=== PATIENT | male | born 1960 | race Caucasian/White ===

== ENCOUNTER 2020-06-14 00:46 | Inpatient (IN) ==
[2020-06-14] MEDS ORDERED: PIPERACILLIN/TAZOBACTAM 3,375 MG in SODIUM CHLORIDE 0.9% 100 ML IV STA (01:48)
[2020-06-14] MEDS ORDERED: SODIUM CHLORIDE 0.9% 500 ML IV STA (01:48)
[2020-06-14] MEDS ORDERED: ONDANSETRON 4 MG/2 ML VIAL IV STA (01:48)
[2020-06-14] MEDS ORDERED: methylPREDNISolone SOD SUC 125 MG/2 ML VIAL IV STA (01:48)
[2020-06-14] MEDS ORDERED: ALBUTEROL/IPRATROPIUM 3 ML NEB RESP TX STA (01:48)
[2020-06-14 01:57] LABS: Hematocrit 30.7 VOL% (42.0-52.0); Hemoglobin 10.8 GM/DL (14.0-18.0); Immature Granulocytes % 4.4 %; Immature Granulocytes Absolute 1.49 #; Lymphocytes # 1.1 10*3/uL (1.4-4.0); Lymphocytes % 3.4 % (21.2-54.2); Mean Corpuscular HGB Conc 35.2 GM/DL (32-36); Mean Platelet Volume 10.3 FL (9.6-12.0); Monocytes % 2.7 % (1.7-12.7); Neutrophils % 89.5 % (38.7-73.9); Platelet Count 268 T/CUMM (130-400); Red Blood Count 3.41 MC/CUMM (3.8-5.5); White Blood Count 33.7 T/CUMM (4-12)
[2020-06-14 02:11] LABS: Albumin 1.1 G/DL (3.4-5.0); Bilirubin,Total 1.1 MG/DL (0.2-1.0); Calcium 7.3 MG/DL (8.5-10.1); Osmolality,Calculated 250.9 MOS/KG (273-304); Total Protein 5.6 G/DL (6.4-8.3)
[2020-06-14 02:21] LABS: ABG Base Excess 6.5 MMOL/L (-2.5-2.5); ABG HCO3 30.3 MMOL/L (20-26); ABG Oxygen Saturation 96.2 % (95-100); ABG PCO2 37.1 MM HG (35-48); ABG PH 7.513 (7.35-7.45); ABG PO2 83.9 MM HG (80-95); Allen Test Positive
[2020-06-14 02:22] LABS: Band Neutrophils 12 % (0-10); Lymphocytes 8 % (20-55); Metamyelocytes 1 %; Platelet Estimate Normal; Segmented Neutrophils 77 % (50-85); Total Cells Counted 100
[2020-06-14 02:23] LABS: Hypochromasia Slight
[2020-06-14 02:36] LABS: INR 1.1
[2020-06-14] MEDS ORDERED: MAGNESIUM SULF RIDER 2 GM in PREMIX 1 EACH IV STA (02:37)
[2020-06-14] MEDS ORDERED: POTASSIUM CHLORIDE 20 MEQ TABLET PO STA (02:47)
[2020-06-14 02:52] LABS: Ferritin 1110.9 ng/ml (26-388)
[2020-06-14] MEDS ORDERED: ONDANSETRON 4 MG/2 ML VIAL IV PRN (02:59)
[2020-06-14] MEDS: LACTATED RINGERS 1,000 ML IV SCH ×2 (04:21→16:52)
[2020-06-14] MEDS ORDERED: INFLUENZA VIRUS VACCINE 0.5 ML SYRINGE IM ONE (05:11)
[2020-06-14] MEDS: VANCOMYCIN INJ 1,000 MG in SODIUM CHLORIDE 0.9% 250 ML IV SCH ×2 (05:16→16:52)
[2020-06-14 06:59] LABS: Bilirubin,Urine Negative (Negative); Blood, Urine Negative (Negative); Glucose,Urine (UA) Negative (Negative); Ketones,Urine Negative (Negative); Nitrite,Urine Negative (Negative); Protein,Urine Negative; RBC,Urine <1 /HPF (0-4); Urine Appearance CLEAR (Clear); Urine Color Yellow (Yellow); Urine Specific Gravity 1.039 (1.001-1.035)
[2020-06-14] MEDS: ALBUTEROL/IPRATROPIUM 3 ML NEB RESP TX SCH ×3 (07:03→18:54)
[2020-06-14 07:06] LABS: Barbiturates Screen,Urine Negative (Negative); Benzodiazepines Screen,Urine Negative (Negative); Cannabinoid Screen,Urine Negative (Negative); Opiate Screen,Urine Negative (Negative); Phencyclidine Screen,Urine Negative (Negative)
[2020-06-14] MEDS: PIPERACILLIN/TAZOBACTAM 3,375 MG in SODIUM CHLORIDE 0.9% 100 ML IV SCH ×2 (08:35→16:56)
[2020-06-14] MEDS: MULTIVITAMIN (BEROCCA) TABLET PO SCH (08:37)
[2020-06-14] MEDS: PANTOPRAZOLE 40 MG TABLET PO SCH (08:37)
[2020-06-14] MEDS: FOLIC ACID 1 MG TABLET PO SCH (08:37)
[2020-06-14] MEDS: THIAMINE 100 MG TABLET PO SCH (08:37)
[2020-06-14] MEDS: NICOTINE 21 MG/24 HR PATCH TRANSDERM PRN (08:41)
[2020-06-14] MEDS ORDERED: HEPARIN/NACL 0.9% 2 UNITS/ML 500 ML IV ONE (11:25)
[2020-06-14] MEDS ORDERED: SUGAMMADEX 200 MG/2 ML VIAL IV ONE (12:40)
[2020-06-14] MEDS ORDERED: propofoL 200 MG/20 ML VIAL IV ONE (13:27)
[2020-06-14] MEDS ORDERED: ROCURONIUM 100 MG/10 ML VIAL IV ONE (13:27)
[2020-06-14] MEDS ORDERED: fentaNYL 100 MCG/2 ML VIAL ONE (13:27)
[2020-06-14] MEDS ORDERED: LIDOCAINE 2% 5 ML VIAL ONE (13:27)
[2020-06-14] MEDS ORDERED: MIDAZOLAM 2 MG/2 ML VIAL ONE (13:27)
[2020-06-14] MEDS ORDERED: DESFLURANE 1 UNIT/15 MINUTE INH ONE (13:27)
[2020-06-14] MEDS ORDERED: SUCCINYLCHOLINE 200 MG/10 ML VIAL ONE (13:27)
[2020-06-14] MEDS: HYDROmorphone 2 MG/1 ML VIAL IV PRN (14:56)
[2020-06-15] MEDS: HYDROmorphone 2 MG/1 ML VIAL IV PRN ×4 (00:32→18:22)
[2020-06-15] MEDS: guaiFENesin/DM ER 600-30 MG TABLET PO PRN (00:33)
[2020-06-15] MEDS: PIPERACILLIN/TAZOBACTAM 3,375 MG in SODIUM CHLORIDE 0.9% 100 ML IV SCH ×3 (00:40→17:48)
[2020-06-15] MEDS: ALBUTEROL/IPRATROPIUM 3 ML NEB RESP TX SCH ×4 (01:42→19:32)
[2020-06-15] MEDS: LACTATED RINGERS 1,000 ML IV SCH ×2 (03:07→13:38)
[2020-06-15 04:28] LABS: Hematocrit 27.4 VOL% (42.0-52.0); Hemoglobin 9.2 GM/DL (14.0-18.0); Immature Granulocytes % 6.2 %; Immature Granulocytes Absolute 1.55 #; Lymphocytes % 4.1 % (21.2-54.2); Mean Corpuscular HGB Conc 33.6 GM/DL (32-36); Mean Corpuscular Volume 94.2 FL (87-102); Mean Platelet Volume 10.4 FL (9.6-12.0); Monocytes % 4.2 % (1.7-12.7); Neutrophils % 85.5 % (38.7-73.9); Red Blood Count 2.91 MC/CUMM (3.8-5.5); Red Cell Distribution Width 14.3 % (9.3-17.3); White Blood Count 24.9 T/CUMM (4-12)
[2020-06-15 04:38] LABS: Platelet Count 162 T/CUMM (130-400)
[2020-06-15 04:38] LABS: Calcium 7.8 MG/DL (8.5-10.1); Osmolality,Calculated 259.9 MOS/KG (273-304)
[2020-06-15 05:00] LABS: Band Neutrophils 7 % (0-10); Hypochromasia Slight; Lymphocytes 2 % (20-55); Metamyelocytes 1 %; Myelocytes 1 %; Segmented Neutrophils 84 % (50-85); Target Cells Slight; Total Cells Counted 100
[2020-06-15 05:01] LABS: Microcytosis Slight; Platelet Estimate Adequate
[2020-06-15] MEDS: VANCOMYCIN INJ 1,000 MG in SODIUM CHLORIDE 0.9% 250 ML IV SCH ×2 (06:06→17:50)
[2020-06-15] MEDS: PANTOPRAZOLE 40 MG TABLET PO SCH (09:03)
[2020-06-15] MEDS: ENOXAPARIN 40 MG/0.4 ML SYRINGE SUBCUT SCH (09:03)
[2020-06-15] MEDS: FOLIC ACID 1 MG TABLET PO SCH (09:03)
[2020-06-15] MEDS: THIAMINE 100 MG TABLET PO SCH (09:03)
[2020-06-15] MEDS: MULTIVITAMIN (BEROCCA) TABLET PO SCH (09:03)
[2020-06-15] MEDS: NICOTINE 21 MG/24 HR PATCH TRANSDERM PRN (09:04)
[2020-06-16] MEDS: LACTATED RINGERS 1,000 ML IV SCH ×3 (00:23→19:40)
[2020-06-16] MEDS: ALBUTEROL/IPRATROPIUM 3 ML NEB RESP TX SCH ×4 (01:52→19:43)
[2020-06-16] MEDS: PIPERACILLIN/TAZOBACTAM 3,375 MG in SODIUM CHLORIDE 0.9% 100 ML IV SCH ×3 (02:02→18:41)
[2020-06-16] MEDS: HYDROmorphone 2 MG/1 ML VIAL IV PRN ×2 (02:03→06:08)
[2020-06-16 03:42] LABS: Basophils % 0.1 % (0.0-0.8); Eosinophils # 0.1 10*3/uL (0.0-0.87); Eosinophils % 0.3 % (0.00-10.9); Hematocrit 28.4 VOL% (42.0-52.0); Hemoglobin 9.4 GM/DL (14.0-18.0); Immature Granulocytes % 8.8 %; Immature Granulocytes Absolute 1.74 #; Lymphocytes # 1.3 10*3/uL (1.4-4.0); Lymphocytes % 6.6 % (21.2-54.2); Mean Corpuscular HGB Conc 33.1 GM/DL (32-36); Mean Corpuscular Volume 95.6 FL (87-102); Mean Platelet Volume 10.8 FL (9.6-12.0); Monocytes % 5.5 % (1.7-12.7); Neutrophils % 78.7 % (38.7-73.9); Platelet Count 151 T/CUMM (130-400); Red Blood Count 2.97 MC/CUMM (3.8-5.5); Red Cell Distribution Width 14.7 % (9.3-17.3); White Blood Count 19.7 T/CUMM (4-12)
[2020-06-16 04:12] LABS: Band Neutrophils 3 % (0-10); Hypochromasia Slight; Lymphocytes 10 % (20-55); Metamyelocytes 4 %; Myelocytes 2 %; Platelet Estimate Normal; Segmented Neutrophils 74 % (50-85); Target Cells Few
[2020-06-16 04:13] LABS: Total Cells Counted 100
[2020-06-16 04:43] LABS: Calcium 7.2 MG/DL (8.5-10.1); Osmolality,Calculated 246.6 MOS/KG (273-304)
[2020-06-16] MEDS: VANCOMYCIN INJ 1,000 MG in SODIUM CHLORIDE 0.9% 250 ML IV SCH ×2 (06:06→18:38)
[2020-06-16] MEDS: chlordiazePOXIDE 10 MG CAPSULE PO PRN ×3 (07:17→22:36)
[2020-06-16] MEDS: ENOXAPARIN 40 MG/0.4 ML SYRINGE SUBCUT SCH (08:22)
[2020-06-16] MEDS: LORazepam 2 MG/1 ML VIAL IV PRN ×3 (08:23→22:36)
[2020-06-16] MEDS: MULTIVITAMIN (BEROCCA) TABLET PO SCH (08:23)
[2020-06-16] MEDS: FOLIC ACID 1 MG TABLET PO SCH (08:23)
[2020-06-16] MEDS: PANTOPRAZOLE 40 MG TABLET PO SCH (08:23)
[2020-06-16] MEDS: NICOTINE 21 MG/24 HR PATCH TRANSDERM PRN (08:23)
[2020-06-16] MEDS: THIAMINE 100 MG TABLET PO SCH (08:23)
[2020-06-16] MEDS: methylPREDNISolone SOD SUC 40 MG/1 ML VIAL IV SCH ×2 (12:52→18:38)
[2020-06-16 18:24] LABS: Bacteria,Urine Occasional /HPF (Few); Bilirubin,Urine Negative (Negative); Blood, Urine Negative (Negative); Glucose,Urine (UA) Negative (Negative); Ketones,Urine Negative (Negative); Nitrite,Urine Negative (Negative); Protein,Urine Negative; RBC,Urine 1 /HPF (0-4); Urine Appearance CLEAR (Clear); Urine Color Yellow (Yellow); Urine Specific Gravity 1.012 (1.001-1.035); Urine Urobilinogen < 2.0 EU/DL (0.2-1.0); WBC,Urine 2 /HPF (0-6)
[2020-06-16] MEDS ORDERED: LORazepam 2 MG/1 ML VIAL ONE (21:30)
[2020-06-16] MEDS: guaiFENesin/DM ER 600-30 MG TABLET PO PRN (22:36)
[2020-06-17] MEDS: ALBUTEROL/IPRATROPIUM 3 ML NEB RESP TX SCH ×4 (01:00→20:06)
[2020-06-17] MEDS: HYDROmorphone 2 MG/1 ML VIAL IV PRN ×2 (01:54→08:06)
[2020-06-17] MEDS: PIPERACILLIN/TAZOBACTAM 3,375 MG in SODIUM CHLORIDE 0.9% 100 ML IV SCH ×3 (02:00→18:04)
[2020-06-17] MEDS: methylPREDNISolone SOD SUC 40 MG/1 ML VIAL IV SCH ×3 (04:07→18:29)
[2020-06-17 04:16] LABS: Basophils % 0.1 % (0.0-0.8); Hematocrit 32.1 VOL% (42.0-52.0); Hemoglobin 10.4 GM/DL (14.0-18.0); Immature Granulocytes % 16.3 %; Immature Granulocytes Absolute 3.05 #; Lymphocytes % 5.6 % (21.2-54.2); Mean Corpuscular HGB Conc 32.4 GM/DL (32-36); Mean Platelet Volume 10.9 FL (9.6-12.0); Monocytes % 2.2 % (1.7-12.7); Neutrophils % 75.8 % (38.7-73.9); Platelet Count 146 T/CUMM (130-400); Red Blood Count 3.31 MC/CUMM (3.8-5.5); Red Cell Distribution Width 14.6 % (9.3-17.3); White Blood Count 18.7 T/CUMM (4-12)
[2020-06-17 04:28] LABS: Calcium 7.4 MG/DL (8.5-10.1); Osmolality,Calculated 264.5 MOS/KG (273-304)
[2020-06-17 04:38] LABS: Band Neutrophils 5 % (0-10); Hypochromasia 1+; Lymphocytes 10 % (20-55); Segmented Neutrophils 82 % (50-85); Total Cells Counted 100
[2020-06-17 04:39] LABS: Microcytosis Slight
[2020-06-17] MEDS: VANCOMYCIN INJ 1,000 MG in SODIUM CHLORIDE 0.9% 250 ML IV SCH ×2 (05:00→18:03)
[2020-06-17] MEDS: PANTOPRAZOLE 40 MG TABLET PO SCH (08:03)
[2020-06-17] MEDS: THIAMINE 100 MG TABLET PO SCH (08:03)
[2020-06-17] MEDS: chlordiazePOXIDE 10 MG CAPSULE PO PRN (08:04)
[2020-06-17] MEDS: FOLIC ACID 1 MG TABLET PO SCH (08:04)
[2020-06-17] MEDS: MULTIVITAMIN (BEROCCA) TABLET PO SCH (08:04)
[2020-06-17] MEDS: NICOTINE 21 MG/24 HR PATCH TRANSDERM PRN (08:05)
[2020-06-17] MEDS: ENOXAPARIN 40 MG/0.4 ML SYRINGE SUBCUT SCH (08:05)
[2020-06-17] MEDS: LACTATED RINGERS 1,000 ML IV SCH ×3 (08:39→18:23)
[2020-06-17] MEDS ORDERED: LIDOCAINE 1% 20 ML VIAL MISC INJ ONE (13:30)
[2020-06-17] MEDS ORDERED: LIDOCAINE 2% VISCOUS 100 ML BOTTLE SWISH/SPIT ONE (13:30)
[2020-06-17] MEDS ORDERED: MIDAZOLAM 2 MG/2 ML VIAL IV ONE (13:30)
[2020-06-17] MEDS ORDERED: LIDOCAINE 2% 20 ML VIAL RESP TX ONE (13:30)
[2020-06-17] MEDS: KETOROLAC 30 MG/1 ML VIAL IV PRN (14:19)
[2020-06-17] MEDS ORDERED: chlordiazePOXIDE 10 MG CAPSULE PO PRN (14:30)
[2020-06-18] MEDS: ALBUTEROL/IPRATROPIUM 3 ML NEB RESP TX SCH ×4 (00:21→20:04)
[2020-06-18] MEDS: LACTATED RINGERS 1,000 ML IV SCH ×2 (01:12→02:16)
[2020-06-18] MEDS: methylPREDNISolone SOD SUC 40 MG/1 ML VIAL IV SCH ×3 (02:12→18:21)
[2020-06-18] MEDS: PIPERACILLIN/TAZOBACTAM 3,375 MG in SODIUM CHLORIDE 0.9% 100 ML IV SCH ×3 (02:15→19:42)
[2020-06-18] MEDS: KETOROLAC 30 MG/1 ML VIAL IV PRN ×4 (03:09→23:59)
[2020-06-18 03:37] LABS: Basophils % 0.1 % (0.0-0.8); Hematocrit 30.9 VOL% (42.0-52.0); Hemoglobin 10.2 GM/DL (14.0-18.0); Immature Granulocytes % 12.3 %; Immature Granulocytes Absolute 1.92 #; Lymphocytes # 0.8 10*3/uL (1.4-4.0); Lymphocytes % 5.1 % (21.2-54.2); Mean Corpuscular Volume 95.1 FL (87-102); Mean Platelet Volume 10.6 FL (9.6-12.0); Monocytes % 4.1 % (1.7-12.7); Neutrophils % 78.4 % (38.7-73.9); Platelet Count 150 T/CUMM (130-400); Red Blood Count 3.25 MC/CUMM (3.8-5.5); White Blood Count 15.7 T/CUMM (4-12)
[2020-06-18 04:04] LABS: Bilirubin,Total 0.5 MG/DL (0.2-1.0); Calcium 7.4 MG/DL (8.5-10.1); Osmolality,Calculated 271.2 MOS/KG (273-304)
[2020-06-18 04:07] LABS: Band Neutrophils 3 % (0-10); Hypochromasia 1+; Lymphocytes 3 % (20-55); Segmented Neutrophils 91 % (50-85); Total Cells Counted 100
[2020-06-18 04:08] LABS: Anisocytosis 1+; Platelet Estimate Adequate
[2020-06-18] MEDS: VANCOMYCIN INJ 1,000 MG in SODIUM CHLORIDE 0.9% 250 ML IV SCH ×2 (05:21→18:18)
[2020-06-18] MEDS: MULTIVITAMIN (BEROCCA) TABLET PO SCH (08:38)
[2020-06-18] MEDS: PANTOPRAZOLE 40 MG TABLET PO SCH (08:39)
[2020-06-18] MEDS: FOLIC ACID 1 MG TABLET PO SCH (08:39)
[2020-06-18] MEDS: ENOXAPARIN 40 MG/0.4 ML SYRINGE SUBCUT SCH (08:39)
[2020-06-18] MEDS: THIAMINE 100 MG TABLET PO SCH (08:39)
[2020-06-18] MEDS: NICOTINE 21 MG/24 HR PATCH TRANSDERM PRN (08:41)
[2020-06-18] MEDS: MAGNESIUM SULF RIDER 2 GM in PREMIX 1 EACH IV PRN (08:42)
[2020-06-19] MEDS: ALBUTEROL/IPRATROPIUM 3 ML NEB RESP TX SCH ×4 (00:57→19:51)
[2020-06-19] MEDS: methylPREDNISolone SOD SUC 40 MG/1 ML VIAL IV SCH ×3 (03:52→21:31)
[2020-06-19] MEDS: PIPERACILLIN/TAZOBACTAM 3,375 MG in SODIUM CHLORIDE 0.9% 100 ML IV SCH ×3 (03:54→21:32)
[2020-06-19] MEDS: VANCOMYCIN INJ 1,000 MG in SODIUM CHLORIDE 0.9% 250 ML IV SCH ×2 (08:15→21:58)
[2020-06-19] MEDS: ENOXAPARIN 40 MG/0.4 ML SYRINGE SUBCUT SCH (09:09)
[2020-06-19] MEDS: MULTIVITAMIN (BEROCCA) TABLET PO SCH (09:09)
[2020-06-19] MEDS: PANTOPRAZOLE 40 MG TABLET PO SCH (09:09)
[2020-06-19] MEDS: FOLIC ACID 1 MG TABLET PO SCH (09:09)
[2020-06-19] MEDS: THIAMINE 100 MG TABLET PO SCH (09:09)
[2020-06-19] MEDS ORDERED: LACTULOSE 20 GM/30 ML UDCUP PO PRN (11:43)
[2020-06-19] MEDS ORDERED: FUROSEMIDE 40 MG/4 ML VIAL IV ONE (15:11)
[2020-06-19] MEDS: FLUCONAZOLE INJ 100 MG in IV BAG 1 EACH IV SCH (18:13)
[2020-06-19] MEDS: DOCUSATE SODIUM 100 MG CAPSULE PO SCH (21:30)
[2020-06-19] MEDS: KETOROLAC 30 MG/1 ML VIAL IV PRN (21:30)
[2020-06-20] MEDS: LACTULOSE 20 GM/30 ML UDCUP PO SCH ×4 (00:23→17:06)
[2020-06-20] MEDS: ALBUTEROL/IPRATROPIUM 3 ML NEB RESP TX SCH ×4 (00:50→19:43)
[2020-06-20] MEDS: methylPREDNISolone SOD SUC 40 MG/1 ML VIAL IV SCH ×3 (03:51→18:00)
[2020-06-20] MEDS: KETOROLAC 30 MG/1 ML VIAL IV PRN ×2 (03:51→21:58)
[2020-06-20] MEDS: PIPERACILLIN/TAZOBACTAM 3,375 MG in SODIUM CHLORIDE 0.9% 100 ML IV SCH ×3 (03:51→22:02)
[2020-06-20 05:33] LABS: Basophils # 0.1 10*3/uL (0.0-0.2); Basophils % 0.6 % (0.0-0.8); Hematocrit 27.4 VOL% (42.0-52.0); Hemoglobin 9.1 GM/DL (14.0-18.0); Immature Granulocytes % 10.9 %; Immature Granulocytes Absolute 1.18 #; Lymphocytes # 0.6 10*3/uL (1.4-4.0); Lymphocytes % 5.4 % (21.2-54.2); Mean Corpuscular HGB Conc 33.2 GM/DL (32-36); Mean Corpuscular Volume 94.2 FL (87-102); Mean Platelet Volume 10.1 FL (9.6-12.0); Monocytes % 4.9 % (1.7-12.7); Neutrophils % 78.2 % (38.7-73.9); Platelet Count 150 T/CUMM (130-400); Red Blood Count 2.91 MC/CUMM (3.8-5.5); Red Cell Distribution Width 14.9 % (9.3-17.3); White Blood Count 10.9 T/CUMM (4-12)
[2020-06-20 05:47] LABS: Calcium 7.8 MG/DL (8.5-10.1); Osmolality,Calculated 271.4 MOS/KG (273-304)
[2020-06-20 05:59] LABS: Hypochromasia Slight; Lymphocytes 6 % (20-55); Myelocytes 1 %; Platelet Estimate Normal; Segmented Neutrophils 90 % (50-85); Total Cells Counted 100
[2020-06-20] MEDS: THIAMINE 100 MG TABLET PO SCH (10:15)
[2020-06-20] MEDS: MULTIVITAMIN (BEROCCA) TABLET PO SCH (10:15)
[2020-06-20] MEDS: DOCUSATE SODIUM 100 MG CAPSULE PO SCH ×2 (10:16→20:58)
[2020-06-20] MEDS: PANTOPRAZOLE 40 MG TABLET PO SCH (10:16)
[2020-06-20] MEDS: ENOXAPARIN 40 MG/0.4 ML SYRINGE SUBCUT SCH (10:16)
[2020-06-20] MEDS: FOLIC ACID 1 MG TABLET PO SCH (10:16)
[2020-06-20] MEDS: MAGNESIUM SULF RIDER 2 GM in PREMIX 1 EACH IV PRN (10:30)
[2020-06-20] MEDS: METOCLOPRAMIDE 10 MG/2 ML VIAL IV SCH ×2 (12:37→17:07)
[2020-06-20] MEDS: FLUCONAZOLE INJ 100 MG in IV BAG 1 EACH IV SCH (17:06)
[2020-06-20] MEDS ORDERED: METOCLOPRAMIDE 10 MG/2 ML VIAL IV SCH (18:00)
[2020-06-20] MEDS ORDERED: VANCOMYCIN INJ 1,000 MG in SODIUM CHLORIDE 0.9% 250 ML IV SCH (21:00)
[2020-06-21] MEDS: METOCLOPRAMIDE 10 MG/2 ML VIAL IV SCH ×5 (00:48→17:13)
[2020-06-21] MEDS: LACTULOSE 20 GM/30 ML UDCUP PO SCH ×5 (01:30→23:59)
[2020-06-21] MEDS: ALBUTEROL/IPRATROPIUM 3 ML NEB RESP TX SCH ×4 (01:48→21:04)
[2020-06-21] MEDS: methylPREDNISolone SOD SUC 40 MG/1 ML VIAL IV SCH ×3 (03:52→18:36)
[2020-06-21] MEDS: PIPERACILLIN/TAZOBACTAM 3,375 MG in SODIUM CHLORIDE 0.9% 100 ML IV SCH ×3 (05:32→21:08)
[2020-06-21 06:09] LABS: Basophils # 0.1 10*3/uL (0.0-0.2); Basophils % 0.5 % (0.0-0.8); Hematocrit 26.8 VOL% (42.0-52.0); Hemoglobin 8.8 GM/DL (14.0-18.0); Immature Granulocytes % 11.2 %; Immature Granulocytes Absolute 1.12 #; Lymphocytes # 0.8 10*3/uL (1.4-4.0); Lymphocytes % 7.6 % (21.2-54.2); Mean Corpuscular HGB Conc 32.8 GM/DL (32-36); Mean Corpuscular Volume 95.7 FL (87-102); Mean Platelet Volume 10.5 FL (9.6-12.0); Monocytes % 6.1 % (1.7-12.7); Neutrophils % 74.6 % (38.7-73.9); Platelet Count 160 T/CUMM (130-400); Red Cell Distribution Width 15.2 % (9.3-17.3)
[2020-06-21 06:33] LABS: Band Neutrophils 1 % (0-10); Lymphocytes 6 % (20-55); Segmented Neutrophils 86 % (50-85); Total Cells Counted 100
[2020-06-21 06:34] LABS: Hypochromasia 1+; Microcytosis 1+; Platelet Estimate Adequate
[2020-06-21 06:37] LABS: Calcium 7.6 MG/DL (8.5-10.1); Osmolality,Calculated 277.8 MOS/KG (273-304)
[2020-06-21] MEDS: DOCUSATE SODIUM 100 MG CAPSULE PO SCH ×2 (09:00→21:08)
[2020-06-21] MEDS: MULTIVITAMIN (BEROCCA) TABLET PO SCH (09:00)
[2020-06-21] MEDS: ENOXAPARIN 40 MG/0.4 ML SYRINGE SUBCUT SCH (09:00)
[2020-06-21] MEDS: THIAMINE 100 MG TABLET PO SCH (09:00)
[2020-06-21] MEDS: FOLIC ACID 1 MG TABLET PO SCH (09:00)
[2020-06-21] MEDS: PANTOPRAZOLE 40 MG TABLET PO SCH (09:01)
[2020-06-21] MEDS: FUROSEMIDE 40 MG/4 ML VIAL IV SCH (17:14)
[2020-06-21] MEDS: FLUCONAZOLE INJ 100 MG in IV BAG 1 EACH IV SCH (17:18)
[2020-06-22] MEDS: ALBUTEROL/IPRATROPIUM 3 ML NEB RESP TX SCH ×4 (01:20→19:31)
[2020-06-22] MEDS: methylPREDNISolone SOD SUC 40 MG/1 ML VIAL IV SCH ×3 (03:27→18:09)
[2020-06-22] MEDS: PIPERACILLIN/TAZOBACTAM 3,375 MG in SODIUM CHLORIDE 0.9% 100 ML IV SCH ×3 (03:27→21:58)
[2020-06-22] MEDS: LACTULOSE 20 GM/30 ML UDCUP PO SCH ×3 (05:26→17:23)
[2020-06-22] MEDS: METOCLOPRAMIDE 10 MG/2 ML VIAL IV SCH ×3 (05:29→18:09)
[2020-06-22 06:27] LABS: Calcium 7.7 MG/DL (8.5-10.1); Osmolality,Calculated 276.1 MOS/KG (273-304)
[2020-06-22 06:34] LABS: Basophils # 0.1 10*3/uL (0.0-0.2); Basophils % 0.4 % (0.0-0.8); Hematocrit 28.7 VOL% (42.0-52.0); Hemoglobin 9.1 GM/DL (14.0-18.0); Immature Granulocytes % 6.8 %; Immature Granulocytes Absolute 0.93 #; Lymphocytes # 0.6 10*3/uL (1.4-4.0); Lymphocytes % 4.3 % (21.2-54.2); Mean Corpuscular HGB Conc 31.7 GM/DL (32-36); Mean Platelet Volume 10.1 FL (9.6-12.0); Monocytes % 2.6 % (1.7-12.7); Neutrophils % 85.9 % (38.7-73.9); Platelet Count 160 T/CUMM (130-400); Red Blood Count 2.99 MC/CUMM (3.8-5.5); Red Cell Distribution Width 15.5 % (9.3-17.3); White Blood Count 13.6 T/CUMM (4-12)
[2020-06-22] MEDS: FUROSEMIDE 40 MG/4 ML VIAL IV SCH ×2 (09:30→18:07)
[2020-06-22] MEDS: PANTOPRAZOLE 40 MG TABLET PO SCH (09:55)
[2020-06-22] MEDS: DOCUSATE SODIUM 100 MG CAPSULE PO SCH ×2 (09:55→22:00)
[2020-06-22] MEDS: THIAMINE 100 MG TABLET PO SCH (09:55)
[2020-06-22] MEDS: MULTIVITAMIN (BEROCCA) TABLET PO SCH (09:55)
[2020-06-22] MEDS: ENOXAPARIN 40 MG/0.4 ML SYRINGE SUBCUT SCH (09:56)
[2020-06-22] MEDS: FOLIC ACID 1 MG TABLET PO SCH (09:58)
[2020-06-22 10:49] LABS: Lymphocytes 3 % (20-55); Platelet Estimate Adequate; Polychromasia Slight; Segmented Neutrophils 92 % (50-85); Total Cells Counted 100
[2020-06-22 10:50] LABS: Microcytosis Slight; Tear Drop Cells Few
[2020-06-22] MEDS ORDERED: POTASSIUM CHLORIDE 20 MEQ TABLET PO ONE (12:19)
[2020-06-22] MEDS: FLUCONAZOLE INJ 100 MG in IV BAG 1 EACH IV SCH (17:22)
[2020-06-22] MEDS: ACETAMINOPHEN 325 MG TABLET PO PRN (17:28)
[2020-06-23] MEDS: LACTULOSE 20 GM/30 ML UDCUP PO SCH ×4 (00:46→17:00)
[2020-06-23] MEDS: METOCLOPRAMIDE 10 MG/2 ML VIAL IV SCH ×4 (00:47→17:33)
[2020-06-23] MEDS: ALBUTEROL/IPRATROPIUM 3 ML NEB RESP TX SCH ×4 (01:04→19:17)
[2020-06-23] MEDS: methylPREDNISolone SOD SUC 40 MG/1 ML VIAL IV SCH ×2 (04:54→17:30)
[2020-06-23] MEDS: PIPERACILLIN/TAZOBACTAM 3,375 MG in SODIUM CHLORIDE 0.9% 100 ML IV SCH ×3 (05:00→22:45)
[2020-06-23 06:22] LABS: Basophils % 0.3 % (0.0-0.8); Eosinophils % 0.1 % (0.00-10.9); Hematocrit 25.5 VOL% (42.0-52.0); Hemoglobin 8.4 GM/DL (14.0-18.0); Immature Granulocytes Absolute 0.89 #; Mean Corpuscular HGB Conc 32.9 GM/DL (32-36); Mean Corpuscular Volume 96.2 FL (87-102); Mean Platelet Volume 9.6 FL (9.6-12.0); Monocytes % 3.4 % (1.7-12.7); Neutrophils % 83.2 % (38.7-73.9); Platelet Count 151 T/CUMM (130-400); Red Blood Count 2.65 MC/CUMM (3.8-5.5); Red Cell Distribution Width 15.8 % (9.3-17.3); White Blood Count 14.8 T/CUMM (4-12)
[2020-06-23 06:45] LABS: Calcium 7.5 MG/DL (8.5-10.1); Osmolality,Calculated 270.2 MOS/KG (273-304)
[2020-06-23 07:04] LABS: Calcium 7.6 MG/DL (8.5-10.1); Osmolality,Calculated 267.4 MOS/KG (273-304)
[2020-06-23] MEDS: THIAMINE 100 MG TABLET PO SCH (09:13)
[2020-06-23] MEDS: MULTIVITAMIN (BEROCCA) TABLET PO SCH (09:13)
[2020-06-23] MEDS: PANTOPRAZOLE 40 MG TABLET PO SCH (09:13)
[2020-06-23] MEDS: DOCUSATE SODIUM 100 MG CAPSULE PO SCH ×2 (09:13→20:52)
[2020-06-23] MEDS: ENOXAPARIN 40 MG/0.4 ML SYRINGE SUBCUT SCH (09:13)
[2020-06-23] MEDS: FOLIC ACID 1 MG TABLET PO SCH (09:16)
[2020-06-23] MEDS: FUROSEMIDE 40 MG/4 ML VIAL IV SCH (09:19)
[2020-06-23] MEDS ORDERED: methylPREDNISolone SOD SUC 40 MG/1 ML VIAL IV SCH (10:30)
[2020-06-23 13:04] LABS: Band Neutrophils 2 % (0-10); Hypochromasia 1+; Lymphocytes 6 % (20-55); Polychromasia Slight; Segmented Neutrophils 90 % (50-85); Total Cells Counted 100
[2020-06-23 13:05] LABS: Microcytosis 1+; Platelet Estimate Adequate
[2020-06-23] MEDS: HYDROmorphone 2 MG/1 ML VIAL IV PRN (15:39)
[2020-06-23] MEDS: FLUCONAZOLE INJ 100 MG in IV BAG 1 EACH IV SCH (16:28)
[2020-06-23] MEDS ORDERED: MAGNESIUM SULF RIDER 2 GM in PREMIX 1 EACH IV ONE ×2 (17:09→20:00)
[2020-06-24] MEDS: ALBUTEROL/IPRATROPIUM 3 ML NEB RESP TX SCH ×4 (00:17→20:08)
[2020-06-24] MEDS: METOCLOPRAMIDE 10 MG/2 ML VIAL IV SCH ×5 (00:48→23:44)
[2020-06-24] MEDS: LACTULOSE 20 GM/30 ML UDCUP PO SCH ×5 (01:01→23:44)
[2020-06-24] MEDS: methylPREDNISolone SOD SUC 40 MG/1 ML VIAL IV SCH ×2 (05:40→17:17)
[2020-06-24] MEDS: PIPERACILLIN/TAZOBACTAM 3,375 MG in SODIUM CHLORIDE 0.9% 100 ML IV SCH ×3 (05:44→19:45)
[2020-06-24 06:16] LABS: Basophils % 0.2 % (0.0-0.8); Eosinophils # 0.1 10*3/uL (0.0-0.87); Eosinophils % 0.5 % (0.00-10.9); Hematocrit 25.8 VOL% (42.0-52.0); Hemoglobin 8.3 GM/DL (14.0-18.0); Immature Granulocytes % 4.8 %; Immature Granulocytes Absolute 0.61 #; Lymphocytes # 1.2 10*3/uL (1.4-4.0); Lymphocytes % 9.6 % (21.2-54.2); Mean Corpuscular HGB Conc 32.2 GM/DL (32-36); Mean Corpuscular Volume 98.9 FL (87-102); Mean Platelet Volume 9.9 FL (9.6-12.0); Monocytes % 3.3 % (1.7-12.7); Neutrophils % 81.6 % (38.7-73.9); Platelet Count 155 T/CUMM (130-400); Red Blood Count 2.61 MC/CUMM (3.8-5.5); Red Cell Distribution Width 16.1 % (9.3-17.3); White Blood Count 12.8 T/CUMM (4-12)
[2020-06-24 06:36] LABS: Calcium 7.6 MG/DL (8.5-10.1); Osmolality,Calculated 268.4 MOS/KG (273-304)
[2020-06-24 06:46] LABS: Hypochromasia 2+; Lymphocytes 8 % (20-55); Platelet Estimate Adequate; Segmented Neutrophils 89 % (50-85); Total Cells Counted 100
[2020-06-24] MEDS: FOLIC ACID 1 MG TABLET PO SCH (09:43)
[2020-06-24] MEDS: DOCUSATE SODIUM 100 MG CAPSULE PO SCH ×2 (09:43→21:01)
[2020-06-24] MEDS: PANTOPRAZOLE 40 MG TABLET PO SCH (09:43)
[2020-06-24] MEDS: MULTIVITAMIN (BEROCCA) TABLET PO SCH (09:43)
[2020-06-24] MEDS: ENOXAPARIN 40 MG/0.4 ML SYRINGE SUBCUT SCH (09:43)
[2020-06-24] MEDS: THIAMINE 100 MG TABLET PO SCH (09:43)
[2020-06-24] MEDS: HYDROmorphone 2 MG/1 ML VIAL IV PRN (10:34)
[2020-06-24] MEDS ORDERED: VANCOMYCIN INJ 1,000 MG in SODIUM CHLORIDE 0.9% 250 ML IV PRN (12:00)
[2020-06-24] MEDS ORDERED: VANCOMYCIN INJ 1,000 MG in SODIUM CHLORIDE 0.9% 250 ML IV ONE (13:00)
[2020-06-24] MEDS: FLUCONAZOLE INJ 100 MG in IV BAG 1 EACH IV SCH (17:18)
[2020-06-24] MEDS: ACETAMINOPHEN 325 MG TABLET PO PRN (23:43)
[2020-06-25] MEDS: ALBUTEROL/IPRATROPIUM 3 ML NEB RESP TX SCH ×4 (00:48→20:20)
[2020-06-25] MEDS: PIPERACILLIN/TAZOBACTAM 3,375 MG in SODIUM CHLORIDE 0.9% 100 ML IV SCH ×3 (04:27→20:47)
[2020-06-25] MEDS: methylPREDNISolone SOD SUC 40 MG/1 ML VIAL IV SCH ×2 (04:59→18:01)
[2020-06-25 05:37] LABS: Basophils % 0.1 % (0.0-0.8); Eosinophils % 0.3 % (0.00-10.9); Hemoglobin 8.1 GM/DL (14.0-18.0); Immature Granulocytes % 4.4 %; Immature Granulocytes Absolute 0.45 #; Lymphocytes # 1.1 10*3/uL (1.4-4.0); Lymphocytes % 11.2 % (21.2-54.2); Mean Corpuscular HGB Conc 31.2 GM/DL (32-36); Mean Corpuscular Volume 98.9 FL (87-102); Mean Platelet Volume 9.5 FL (9.6-12.0); Monocytes % 3.2 % (1.7-12.7); Neutrophils % 80.8 % (38.7-73.9); Platelet Count 164 T/CUMM (130-400); Red Blood Count 2.63 MC/CUMM (3.8-5.5); Red Cell Distribution Width 16.1 % (9.3-17.3); White Blood Count 10.2 T/CUMM (4-12)
[2020-06-25] MEDS: METOCLOPRAMIDE 10 MG/2 ML VIAL IV SCH ×3 (05:45→18:02)
[2020-06-25] MEDS: LACTULOSE 20 GM/30 ML UDCUP PO SCH ×3 (05:45→18:02)
[2020-06-25 05:53] LABS: Calcium 7.9 MG/DL (8.5-10.1); Osmolality,Calculated 271.2 MOS/KG (273-304)
[2020-06-25] MEDS: MULTIVITAMIN (BEROCCA) TABLET PO SCH (08:28)
[2020-06-25] MEDS: FOLIC ACID 1 MG TABLET PO SCH (08:29)
[2020-06-25] MEDS: ENOXAPARIN 40 MG/0.4 ML SYRINGE SUBCUT SCH (08:29)
[2020-06-25] MEDS: THIAMINE 100 MG TABLET PO SCH (08:29)
[2020-06-25] MEDS: PANTOPRAZOLE 40 MG TABLET PO SCH (08:29)
[2020-06-25] MEDS: DOCUSATE SODIUM 100 MG CAPSULE PO SCH ×2 (08:29→20:47)
[2020-06-25] MEDS: ACETAMINOPHEN 325 MG TABLET PO PRN (08:51)
[2020-06-25 08:56] LABS: % Iron Saturation 28.1 % (18-50); Ferritin 669.7 ng/ml (26-388)
[2020-06-25 09:11] LABS: Folate 10.1 NG/ML (5.4-24.0)
[2020-06-25] MEDS: NICOTINE 21 MG/24 HR PATCH TRANSDERM PRN (16:40)
[2020-06-25] MEDS: FLUCONAZOLE INJ 100 MG in IV BAG 1 EACH IV SCH (17:59)
[2020-06-26] MEDS: METOCLOPRAMIDE 10 MG/2 ML VIAL IV SCH ×5 (00:49→23:42)
[2020-06-26] MEDS: LACTULOSE 20 GM/30 ML UDCUP PO SCH ×4 (00:49→17:19)
[2020-06-26] MEDS: ALBUTEROL/IPRATROPIUM 3 ML NEB RESP TX SCH ×4 (00:56→20:15)
[2020-06-26] MEDS: methylPREDNISolone SOD SUC 40 MG/1 ML VIAL IV SCH ×2 (04:53→16:56)
[2020-06-26] MEDS: PIPERACILLIN/TAZOBACTAM 3,375 MG in SODIUM CHLORIDE 0.9% 100 ML IV SCH ×3 (04:57→20:45)
[2020-06-26 05:39] LABS: Basophils % 0.2 % (0.0-0.8); Hemoglobin 7.4 GM/DL (14.0-18.0); Immature Granulocytes % 3.2 %; Lymphocytes # 1.1 10*3/uL (1.4-4.0); Lymphocytes % 8.7 % (21.2-54.2); Mean Corpuscular HGB Conc 32.2 GM/DL (32-36); Mean Corpuscular Volume 98.3 FL (87-102); Mean Platelet Volume 9.4 FL (9.6-12.0); Monocytes % 3.7 % (1.7-12.7); Neutrophils % 84.2 % (38.7-73.9); Platelet Count 172 T/CUMM (130-400); Red Blood Count 2.34 MC/CUMM (3.8-5.5); Red Cell Distribution Width 16.3 % (9.3-17.3); White Blood Count 12.5 T/CUMM (4-12)
[2020-06-26 05:48] LABS: Calcium 7.7 MG/DL (8.5-10.1)
[2020-06-26] MEDS: FOLIC ACID 1 MG TABLET PO SCH (08:25)
[2020-06-26] MEDS: MULTIVITAMIN (BEROCCA) TABLET PO SCH (08:25)
[2020-06-26] MEDS: THIAMINE 100 MG TABLET PO SCH (08:25)
[2020-06-26] MEDS: PANTOPRAZOLE 40 MG TABLET PO SCH (08:25)
[2020-06-26] MEDS: ENOXAPARIN 40 MG/0.4 ML SYRINGE SUBCUT SCH (08:25)
[2020-06-26] MEDS: DOCUSATE SODIUM 100 MG CAPSULE PO SCH ×2 (08:26→20:53)
[2020-06-26] MEDS: FLUCONAZOLE INJ 100 MG in IV BAG 1 EACH IV SCH (16:57)
[2020-06-26] MEDS: ACETAMINOPHEN 325 MG TABLET PO PRN (17:20)
[2020-06-27] MEDS: LACTULOSE 20 GM/30 ML UDCUP PO SCH ×5 (00:06→22:34)
[2020-06-27] MEDS: ALBUTEROL/IPRATROPIUM 3 ML NEB RESP TX SCH ×4 (01:15→19:00)
[2020-06-27] MEDS: methylPREDNISolone SOD SUC 40 MG/1 ML VIAL IV SCH ×2 (05:21→17:02)
[2020-06-27] MEDS: METOCLOPRAMIDE 10 MG/2 ML VIAL IV SCH ×3 (05:23→17:03)
[2020-06-27] MEDS: PIPERACILLIN/TAZOBACTAM 3,375 MG in SODIUM CHLORIDE 0.9% 100 ML IV SCH ×3 (05:25→22:33)
[2020-06-27 05:53] LABS: Basophils % 0.1 % (0.0-0.8); Hematocrit 22.5 VOL% (42.0-52.0); Hemoglobin 7.3 GM/DL (14.0-18.0); Immature Granulocytes % 3.8 %; Immature Granulocytes Absolute 0.42 #; Lymphocytes % 8.9 % (21.2-54.2); Mean Corpuscular HGB Conc 32.4 GM/DL (32-36); Mean Corpuscular Volume 98.7 FL (87-102); Mean Platelet Volume 9.5 FL (9.6-12.0); Monocytes % 4.1 % (1.7-12.7); Neutrophils % 83.1 % (38.7-73.9); Platelet Count 185 T/CUMM (130-400); Red Blood Count 2.28 MC/CUMM (3.8-5.5); Red Cell Distribution Width 16.3 % (9.3-17.3); White Blood Count 11.1 T/CUMM (4-12)
[2020-06-27 06:12] LABS: Calcium 8.1 MG/DL (8.5-10.1); Osmolality,Calculated 269.4 MOS/KG (273-304)
[2020-06-27] MEDS ORDERED: MAGNESIUM HYDROXIDE SUSP 30 ML UDCUP PO ONE (08:20)
[2020-06-27] MEDS: FOLIC ACID 1 MG TABLET PO SCH (09:48)
[2020-06-27] MEDS: PANTOPRAZOLE 40 MG TABLET PO SCH (09:48)
[2020-06-27] MEDS: MULTIVITAMIN (BEROCCA) TABLET PO SCH (09:48)
[2020-06-27] MEDS: DOCUSATE SODIUM 100 MG CAPSULE PO SCH ×2 (09:48→22:35)
[2020-06-27] MEDS: THIAMINE 100 MG TABLET PO SCH (09:49)
[2020-06-27] MEDS: ENOXAPARIN 40 MG/0.4 ML SYRINGE SUBCUT SCH (09:53)
[2020-06-27] MEDS: POLYETHYLENE GLYCOL POWDER 17 GM PACK PO SCH (10:53)
[2020-06-27] MEDS: ACETAMINOPHEN 325 MG TABLET PO PRN (22:34)
[2020-06-28] MEDS: METOCLOPRAMIDE 10 MG/2 ML VIAL IV SCH ×5 (01:01→23:20)
[2020-06-28] MEDS: ALBUTEROL/IPRATROPIUM 3 ML NEB RESP TX SCH ×4 (01:02→19:16)
[2020-06-28] MEDS: LACTULOSE 20 GM/30 ML UDCUP PO SCH ×4 (01:55→21:13)
[2020-06-28] MEDS: methylPREDNISolone SOD SUC 40 MG/1 ML VIAL IV SCH ×2 (05:33→18:27)
[2020-06-28 05:38] LABS: Basophils % 0.2 % (0.0-0.8); Eosinophils % 0.3 % (0.00-10.9); Hematocrit 25.1 VOL% (42.0-52.0); Hemoglobin 7.9 GM/DL (14.0-18.0); Immature Granulocytes Absolute 0.41 #; Lymphocytes % 9.8 % (21.2-54.2); Mean Corpuscular HGB Conc 31.5 GM/DL (32-36); Mean Corpuscular Volume 97.7 FL (87-102); Mean Platelet Volume 9.2 FL (9.6-12.0); Monocytes % 4.1 % (1.7-12.7); Neutrophils % 81.6 % (38.7-73.9); Platelet Count 205 T/CUMM (130-400); Red Blood Count 2.57 MC/CUMM (3.8-5.5); Red Cell Distribution Width 16.7 % (9.3-17.3); White Blood Count 10.3 T/CUMM (4-12)
[2020-06-28] MEDS: PIPERACILLIN/TAZOBACTAM 3,375 MG in SODIUM CHLORIDE 0.9% 100 ML IV SCH ×3 (05:39→21:12)
[2020-06-28 05:57] LABS: Calcium 8.1 MG/DL (8.5-10.1)
[2020-06-28] MEDS: POLYETHYLENE GLYCOL POWDER 17 GM PACK PO SCH (08:46)
[2020-06-28] MEDS: FOLIC ACID 1 MG TABLET PO SCH (09:21)
[2020-06-28] MEDS: MULTIVITAMIN (BEROCCA) TABLET PO SCH (09:21)
[2020-06-28] MEDS: DOCUSATE SODIUM 100 MG CAPSULE PO SCH ×2 (09:21→21:13)
[2020-06-28] MEDS: THIAMINE 100 MG TABLET PO SCH (09:22)
[2020-06-28] MEDS: ENOXAPARIN 40 MG/0.4 ML SYRINGE SUBCUT SCH (09:22)
[2020-06-28] MEDS: PANTOPRAZOLE 40 MG TABLET PO SCH (09:22)
[2020-06-28] MEDS: MORPHINE 4 MG/1 ML VIAL IV PRN ×2 (21:13→23:20)
[2020-06-29] MEDS: ALBUTEROL/IPRATROPIUM 3 ML NEB RESP TX SCH ×4 (01:29→19:58)
[2020-06-29] MEDS: PIPERACILLIN/TAZOBACTAM 3,375 MG in SODIUM CHLORIDE 0.9% 100 ML IV SCH (03:14)
[2020-06-29] MEDS: LACTULOSE 20 GM/30 ML UDCUP PO SCH ×4 (03:14→19:55)
[2020-06-29] MEDS: MORPHINE 4 MG/1 ML VIAL IV PRN ×2 (03:14→19:53)
[2020-06-29] MEDS: METOCLOPRAMIDE 10 MG/2 ML VIAL IV SCH ×3 (05:58→17:08)
[2020-06-29] MEDS: methylPREDNISolone SOD SUC 40 MG/1 ML VIAL IV SCH ×2 (05:58→17:06)
[2020-06-29] MEDS: ENOXAPARIN 40 MG/0.4 ML SYRINGE SUBCUT SCH (09:34)
[2020-06-29] MEDS: MULTIVITAMIN (BEROCCA) TABLET PO SCH (09:34)
[2020-06-29] MEDS: FOLIC ACID 1 MG TABLET PO SCH (09:34)
[2020-06-29] MEDS: DOCUSATE SODIUM 100 MG CAPSULE PO SCH ×2 (09:34→20:57)
[2020-06-29] MEDS: POLYETHYLENE GLYCOL POWDER 17 GM PACK PO SCH (09:35)
[2020-06-29] MEDS: THIAMINE 100 MG TABLET PO SCH (09:35)
[2020-06-29] MEDS: PANTOPRAZOLE 40 MG TABLET PO SCH (09:35)
[2020-06-30] MEDS: METOCLOPRAMIDE 10 MG/2 ML VIAL IV SCH ×4 (00:02→17:34)
[2020-06-30] MEDS: MORPHINE 4 MG/1 ML VIAL IV PRN ×5 (00:02→22:10)
[2020-06-30] MEDS ORDERED: DOCUSATE SODIUM 100 MG CAPSULE PO PRN (01:13)
[2020-06-30] MEDS: ALBUTEROL/IPRATROPIUM 3 ML NEB RESP TX SCH ×4 (01:40→19:40)
[2020-06-30] MEDS: methylPREDNISolone SOD SUC 40 MG/1 ML VIAL IV SCH ×2 (04:17→17:32)
[2020-06-30] MEDS: PANTOPRAZOLE 40 MG TABLET PO SCH (09:42)
[2020-06-30] MEDS: THIAMINE 100 MG TABLET PO SCH (09:42)
[2020-06-30] MEDS: MULTIVITAMIN (BEROCCA) TABLET PO SCH (09:42)
[2020-06-30] MEDS: POLYETHYLENE GLYCOL POWDER 17 GM PACK PO SCH (09:43)
[2020-06-30] MEDS: FOLIC ACID 1 MG TABLET PO SCH (09:43)
[2020-06-30] MEDS: ENOXAPARIN 40 MG/0.4 ML SYRINGE SUBCUT SCH (09:43)
[2020-07-01] MEDS: MORPHINE 4 MG/1 ML VIAL IV PRN ×3 (00:36→23:31)
[2020-07-01] MEDS: METOCLOPRAMIDE 10 MG/2 ML VIAL IV SCH ×5 (00:36→23:52)
[2020-07-01] MEDS: ALBUTEROL/IPRATROPIUM 3 ML NEB RESP TX SCH ×4 (01:22→19:27)
[2020-07-01] MEDS: methylPREDNISolone SOD SUC 40 MG/1 ML VIAL IV SCH ×2 (05:49→17:22)
[2020-07-01] MEDS: THIAMINE 100 MG TABLET PO SCH (08:58)
[2020-07-01] MEDS: PANTOPRAZOLE 40 MG TABLET PO SCH (08:58)
[2020-07-01] MEDS: MULTIVITAMIN (BEROCCA) TABLET PO SCH (08:58)
[2020-07-01] MEDS: FOLIC ACID 1 MG TABLET PO SCH (08:58)
[2020-07-01] MEDS: ENOXAPARIN 40 MG/0.4 ML SYRINGE SUBCUT SCH (09:00)
[2020-07-01] MEDS: POLYETHYLENE GLYCOL POWDER 17 GM PACK PO SCH (09:01)
[2020-07-01] MEDS: AMOXICILLIN/CLAV 500 MG TABLET PO SCH (21:35)
[2020-07-02] MEDS: ALBUTEROL/IPRATROPIUM 3 ML NEB RESP TX SCH ×4 (01:18→19:12)
[2020-07-02] MEDS: MORPHINE 4 MG/1 ML VIAL IV PRN ×2 (01:45→06:04)
[2020-07-02 05:18] LABS: Eosinophils # 0.3 10*3/uL (0.0-0.87); Eosinophils % 4.4 % (0.00-10.9); Hematocrit 23.4 VOL% (42.0-52.0); Hemoglobin 7.5 GM/DL (14.0-18.0); Immature Granulocytes % 1.7 %; Immature Granulocytes Absolute 0.11 #; Lymphocytes # 1.2 10*3/uL (1.4-4.0); Lymphocytes % 18.7 % (21.2-54.2); Mean Corpuscular HGB Conc 32.1 GM/DL (32-36); Mean Corpuscular Volume 97.9 FL (87-102); Monocytes % 4.4 % (1.7-12.7); Neutrophils % 70.8 % (38.7-73.9); Platelet Count 196 T/CUMM (130-400); Red Blood Count 2.39 MC/CUMM (3.8-5.5); White Blood Count 6.5 T/CUMM (4-12)
[2020-07-02 05:38] LABS: Hypochromasia 2+; Microcytosis 1+; Platelet Estimate Adequate
[2020-07-02 05:39] LABS: Calcium 8.1 MG/DL (8.5-10.1); Osmolality,Calculated 270.1 MOS/KG (273-304)
[2020-07-02] MEDS: METOCLOPRAMIDE 10 MG/2 ML VIAL IV SCH ×3 (06:03→20:23)
[2020-07-02] MEDS: methylPREDNISolone SOD SUC 40 MG/1 ML VIAL IV SCH ×2 (06:03→18:48)
[2020-07-02] MEDS: PANTOPRAZOLE 40 MG TABLET PO SCH (08:58)
[2020-07-02] MEDS: MULTIVITAMIN (BEROCCA) TABLET PO SCH (08:58)
[2020-07-02] MEDS: AMOXICILLIN/CLAV 500 MG TABLET PO SCH ×2 (08:58→20:38)
[2020-07-02] MEDS: FOLIC ACID 1 MG TABLET PO SCH (08:58)
[2020-07-02] MEDS: THIAMINE 100 MG TABLET PO SCH (08:58)
[2020-07-02] MEDS: ENOXAPARIN 40 MG/0.4 ML SYRINGE SUBCUT SCH (08:59)
[2020-07-02] MEDS: POLYETHYLENE GLYCOL POWDER 17 GM PACK PO SCH (08:59)
[2020-07-03] MEDS: METOCLOPRAMIDE 10 MG/2 ML VIAL IV SCH ×4 (00:38→17:16)
[2020-07-03] MEDS: ALBUTEROL/IPRATROPIUM 3 ML NEB RESP TX SCH ×4 (02:52→19:11)
[2020-07-03 05:10] LABS: Basophils % 0.1 % (0.0-0.8); Eosinophils % 0.4 % (0.00-10.9); Hemoglobin 7.9 GM/DL (14.0-18.0); Immature Granulocytes % 1.5 %; Lymphocytes # 1.4 10*3/uL (1.4-4.0); Lymphocytes % 19.9 % (21.2-54.2); Mean Corpuscular HGB Conc 31.6 GM/DL (32-36); Mean Platelet Volume 9.3 FL (9.6-12.0); Monocytes % 3.2 % (1.7-12.7); Neutrophils % 74.9 % (38.7-73.9); Platelet Count 215 T/CUMM (130-400); Red Blood Count 2.55 MC/CUMM (3.8-5.5); Red Cell Distribution Width 16.9 % (9.3-17.3); White Blood Count 6.8 T/CUMM (4-12)
[2020-07-03 05:35] LABS: Hypochromasia 1+; Lymphocytes 17 % (20-55); Microcytosis Slight; Platelet Estimate Adequate; Segmented Neutrophils 76 % (50-85); Total Cells Counted 100
[2020-07-03] MEDS: methylPREDNISolone SOD SUC 40 MG/1 ML VIAL IV SCH ×2 (05:37→17:12)
[2020-07-03 05:39] LABS: Calcium 8.3 MG/DL (8.5-10.1); Osmolality,Calculated 269.4 MOS/KG (273-304)
[2020-07-03] MEDS: ENOXAPARIN 40 MG/0.4 ML SYRINGE SUBCUT SCH (08:40)
[2020-07-03] MEDS: FOLIC ACID 1 MG TABLET PO SCH (08:40)
[2020-07-03] MEDS: AMOXICILLIN/CLAV 500 MG TABLET PO SCH ×2 (08:40→23:00)
[2020-07-03] MEDS: MULTIVITAMIN (BEROCCA) TABLET PO SCH (08:40)
[2020-07-03] MEDS: POLYETHYLENE GLYCOL POWDER 17 GM PACK PO SCH (08:41)
[2020-07-03] MEDS: THIAMINE 100 MG TABLET PO SCH (08:41)
[2020-07-03] MEDS: PANTOPRAZOLE 40 MG TABLET PO SCH (08:41)
[2020-07-03] MEDS: MORPHINE 4 MG/1 ML VIAL IV PRN (23:03)
[2020-07-04] MEDS: ALBUTEROL/IPRATROPIUM 3 ML NEB RESP TX SCH ×4 (00:30→19:30)
[2020-07-04] MEDS: METOCLOPRAMIDE 10 MG/2 ML VIAL IV SCH ×4 (01:43→17:27)
[2020-07-04 05:14] LABS: Basophils % 0.5 % (0.0-0.8); Eosinophils # 0.1 10*3/uL (0.0-0.87); Eosinophils % 0.9 % (0.00-10.9); Hematocrit 24.3 VOL% (42.0-52.0); Hemoglobin 7.5 GM/DL (14.0-18.0); Immature Granulocytes % 1.4 %; Immature Granulocytes Absolute 0.09 #; Lymphocytes # 1.7 10*3/uL (1.4-4.0); Lymphocytes % 25.3 % (21.2-54.2); Mean Corpuscular HGB Conc 30.9 GM/DL (32-36); Mean Corpuscular Volume 99.6 FL (87-102); Mean Platelet Volume 9.4 FL (9.6-12.0); Monocytes % 8.8 % (1.7-12.7); Neutrophils % 63.1 % (38.7-73.9); Platelet Count 277 T/CUMM (130-400); Red Blood Count 2.44 MC/CUMM (3.8-5.5); White Blood Count 6.5 T/CUMM (4-12)
[2020-07-04 05:30] LABS: Calcium 8.5 MG/DL (8.5-10.1); Osmolality,Calculated 269.1 MOS/KG (273-304)
[2020-07-04] MEDS: methylPREDNISolone SOD SUC 40 MG/1 ML VIAL IV SCH ×2 (05:55→17:26)
[2020-07-04] MEDS: MAGNESIUM SULF RIDER 4 GM in PREMIX 1 EACH IV PRN (06:26)
[2020-07-04] MEDS: MAGNESIUM SULF RIDER 2 GM in PREMIX 1 EACH IV PRN (06:36)
[2020-07-04] MEDS: FOLIC ACID 1 MG TABLET PO SCH (08:34)
[2020-07-04] MEDS: AMOXICILLIN/CLAV 500 MG TABLET PO SCH ×2 (08:34→21:47)
[2020-07-04] MEDS: PANTOPRAZOLE 40 MG TABLET PO SCH (08:34)
[2020-07-04] MEDS: ENOXAPARIN 40 MG/0.4 ML SYRINGE SUBCUT SCH (08:34)
[2020-07-04] MEDS: THIAMINE 100 MG TABLET PO SCH (08:34)
[2020-07-04] MEDS: MULTIVITAMIN (BEROCCA) TABLET PO SCH (08:34)
[2020-07-04] MEDS: POLYETHYLENE GLYCOL POWDER 17 GM PACK PO SCH (08:34)
[2020-07-04] MEDS: MORPHINE 4 MG/1 ML VIAL IV PRN (18:04)
[2020-07-05] MEDS: METOCLOPRAMIDE 10 MG/2 ML VIAL IV SCH ×4 (00:45→19:18)
[2020-07-05] MEDS: ALBUTEROL/IPRATROPIUM 3 ML NEB RESP TX SCH ×4 (02:38→19:24)
[2020-07-05] MEDS: methylPREDNISolone SOD SUC 40 MG/1 ML VIAL IV SCH ×2 (04:58→18:30)
[2020-07-05 05:46] LABS: Basophils % 0.1 % (0.0-0.8); Eosinophils # 0.1 10*3/uL (0.0-0.87); Eosinophils % 1.4 % (0.00-10.9); Hemoglobin 7.8 GM/DL (14.0-18.0); Immature Granulocytes % 1.8 %; Immature Granulocytes Absolute 0.17 #; Lymphocytes # 1.8 10*3/uL (1.4-4.0); Lymphocytes % 19.3 % (21.2-54.2); Mean Corpuscular HGB Conc 31.2 GM/DL (32-36); Mean Corpuscular Volume 99.2 FL (87-102); Mean Platelet Volume 9.3 FL (9.6-12.0); Monocytes % 7.8 % (1.7-12.7); Neutrophils % 69.6 % (38.7-73.9); Platelet Count 350 T/CUMM (130-400); Red Blood Count 2.52 MC/CUMM (3.8-5.5); Red Cell Distribution Width 16.9 % (9.3-17.3); White Blood Count 9.5 T/CUMM (4-12)
[2020-07-05 06:06] LABS: Calcium 8.7 MG/DL (8.5-10.1)
[2020-07-05] MEDS: THIAMINE 100 MG TABLET PO SCH (07:40)
[2020-07-05] MEDS: AMOXICILLIN/CLAV 500 MG TABLET PO SCH ×2 (07:40→20:52)
[2020-07-05] MEDS: FOLIC ACID 1 MG TABLET PO SCH (07:40)
[2020-07-05] MEDS: MULTIVITAMIN (BEROCCA) TABLET PO SCH (07:40)
[2020-07-05] MEDS: POLYETHYLENE GLYCOL POWDER 17 GM PACK PO SCH (07:40)
[2020-07-05] MEDS: ENOXAPARIN 40 MG/0.4 ML SYRINGE SUBCUT SCH (07:40)
[2020-07-05] MEDS: PANTOPRAZOLE 40 MG TABLET PO SCH (07:40)
[2020-07-05] MEDS: MORPHINE 4 MG/1 ML VIAL IV PRN ×3 (07:41→21:02)
[2020-07-05] MEDS ORDERED: LORazepam 2 MG/1 ML VIAL ONE (21:50)
[2020-07-05] MEDS ORDERED: ETOMIDATE 20 MG/10 ML VIAL IV ONE ×3 (22:03→22:06)
[2020-07-05] MEDS ORDERED: VECURONIUM 10 MG VIAL IV ONE ×3 (22:03→22:20)
[2020-07-05 22:05] LABS: ABG Base Excess -7.1 MMOL/L (-2.5-2.5); ABG HCO3 18.5 MMOL/L (20-26); ABG Oxygen Saturation 84.2 % (95-100); ABG PCO2 56.5 MM HG (35-48); ABG PO2 65.2 MM HG (80-95); ABG TCO2 20.3 MMOL/L (23-27)
[2020-07-05 22:13] LABS: ABG PH 7.191 (7.35-7.45)
[2020-07-05 22:29] LABS: Alanine Aminotransferase 89 U/L (16-61); Albumin 2.4 G/DL (3.4-5.0); Alkaline Phosphatase 125 U/L (45-117); Aspartate Amino Transferase 57 U/L (0-37); Bilirubin,Total < 0.39 MG/DL (0.2-1.0); Blood Urea Nitrogen 16 MG/DL (7-18); Calcium 8.7 MG/DL (8.5-10.1); Estimated Glom Filtration Rate 92 ML/MIN; Glucose 219 MG/DL (74-106); Osmolality,Calculated 277.1 MOS/KG (273-304); Total Protein 7.2 G/DL (6.4-8.3)
[2020-07-05 22:48] LABS: Basophils # 0.1 10*3/uL (0.0-0.2); Basophils % 0.3 % (0.0-0.8); Eosinophils # 0.5 10*3/uL (0.0-0.87); Eosinophils % 2.1 % (0.00-10.9); Immature Granulocytes % 4.2 %; Immature Granulocytes Absolute 0.92 #; Lymphocytes # 5.2 10*3/uL (1.4-4.0); Lymphocytes % 23.5 % (21.2-54.2); Mean Corpuscular HGB Conc 30.3 GM/DL (32-36); Mean Corpuscular Volume 103.8 FL (87-102); Mean Platelet Volume 9.1 FL (9.6-12.0); Monocytes % 4.5 % (1.7-12.7); NRBC # 0.03 10*3/uL; Neutrophils % 65.4 % (38.7-73.9); Platelet Count 425 T/CUMM (130-400); Red Cell Distribution Width 16.9 % (9.3-17.3)
[2020-07-05 22:55] LABS: Hemoglobin 10.7 GM/DL (14.0-18.0)
[2020-07-05 22:57] LABS: Hematocrit 35.3 VOL% (42.0-52.0)
[2020-07-05] MEDS ORDERED: SODIUM CHLORIDE 0.9% 1,000 ML IV ONE (23:19)
[2020-07-05 23:43] LABS: ABG Base Excess -1.8 MMOL/L (-2.5-2.5); ABG HCO3 22.9 MMOL/L (20-26); ABG Oxygen Saturation 97.7 % (95-100); ABG PCO2 63.6 MM HG (35-48); ABG PH 7.234 (7.35-7.45); ABG TCO2 24.9 MMOL/L (23-27)
[2020-07-06 00:17] LABS: CKMB % 7.6 %
[2020-07-06 00:19] LABS: Troponin I 0.309 NG/ML (0.00-0.045)
[2020-07-06] MEDS: ALBUTEROL/IPRATROPIUM 3 ML NEB RESP TX SCH ×4 (00:25→19:29)
[2020-07-06] MEDS: PIPERACILLIN/TAZOBACTAM 3,375 MG in SODIUM CHLORIDE 0.9% 100 ML IV SCH ×3 (00:42→15:23)
[2020-07-06] MEDS: METOCLOPRAMIDE 10 MG/2 ML VIAL IV SCH ×4 (00:42→17:19)
[2020-07-06] MEDS: SODIUM CHLORIDE 0.9% 1,000 ML IV SCH ×3 (00:56→16:57)
[2020-07-06 03:58] LABS: Band Neutrophils 3 % (0-10); Eosinophils 2 % (0-10); Lymphocytes 15 % (20-55); Platelet Estimate Increased; Segmented Neutrophils 74 % (50-85); Total Cells Counted 100
[2020-07-06 03:59] LABS: Anisocytosis 2+; Macrocytosis 2+
[2020-07-06 04:16] LABS: ABG Base Excess 1.4 MMOL/L (-2.5-2.5); ABG HCO3 25.7 MMOL/L (20-26); ABG PCO2 52.4 MM HG (35-48); ABG PH 7.336 (7.35-7.45); ABG TCO2 25.8 MMOL/L (23-27); Allen Test Positive; Pt O2 Delivery Device Ventilator
[2020-07-06 05:06] LABS: Basophils % 0.2 % (0.0-0.8); Eosinophils % 0.1 % (0.00-10.9); Hematocrit 30.1 VOL% (42.0-52.0); Hemoglobin 9.4 GM/DL (14.0-18.0); Immature Granulocytes % 3.8 %; Immature Granulocytes Absolute 0.64 #; Lymphocytes # 2.2 10*3/uL (1.4-4.0); Lymphocytes % 13.4 % (21.2-54.2); Mean Corpuscular HGB Conc 31.2 GM/DL (32-36); Mean Platelet Volume 9.1 FL (9.6-12.0); NRBC # 0.02 10*3/uL; Neutrophils % 75.5 % (38.7-73.9); Platelet Count 366 T/CUMM (130-400); Red Blood Count 2.98 MC/CUMM (3.8-5.5); Red Cell Distribution Width 17.1 % (9.3-17.3); White Blood Count 16.7 T/CUMM (4-12)
[2020-07-06] MEDS: methylPREDNISolone SOD SUC 40 MG/1 ML VIAL IV SCH ×2 (05:24→17:18)
[2020-07-06 05:27] LABS: CKMB % 10.7 %
[2020-07-06 05:28] LABS: Troponin I 0.553 NG/ML (0.00-0.045)
[2020-07-06 05:41] LABS: Eosinophils 2 % (0-10); Lymphocytes 10 % (20-55); Segmented Neutrophils 82 % (50-85); Total Cells Counted 100
[2020-07-06 05:42] LABS: Hypochromasia 2+; Platelet Estimate Normal
[2020-07-06] MEDS: THIAMINE 100 MG TABLET PO SCH (09:28)
[2020-07-06] MEDS: PANTOPRAZOLE 40 MG TABLET PO SCH (09:29)
[2020-07-06] MEDS: MULTIVITAMIN (BEROCCA) TABLET PO SCH (09:29)
[2020-07-06] MEDS: POLYETHYLENE GLYCOL POWDER 17 GM PACK PO SCH (09:29)
[2020-07-06] MEDS: FOLIC ACID 1 MG TABLET PO SCH (09:29)
[2020-07-06] MEDS: ENOXAPARIN 40 MG/0.4 ML SYRINGE SUBCUT SCH (09:31)
[2020-07-06] MEDS ORDERED: METOPROLOL TARTRATE 5 MG/5 ML VIAL IV ONE (10:14)
[2020-07-06] MEDS: METOPROLOL TARTRATE 5 MG/5 ML VIAL IV SCH (17:18)
[2020-07-06] MEDS: ARFORMOTEROL 15 MCG/2 ML NEB RESP TX SCH (19:29)
[2020-07-06] MEDS: BUDESONIDE 0.5 MG/2 ML NEB RESP TX SCH (19:30)
[2020-07-06] MEDS: fentaNYL INJ 1,250 MCG in SODIUM CHLORIDE 0.9% 225 ML IV PRN (21:30)
[2020-07-07] MEDS: ALBUTEROL/IPRATROPIUM 3 ML NEB RESP TX SCH ×4 (00:54→19:13)
[2020-07-07] MEDS: PIPERACILLIN/TAZOBACTAM 3,375 MG in SODIUM CHLORIDE 0.9% 100 ML IV SCH ×3 (00:57→15:16)
[2020-07-07] MEDS: METOCLOPRAMIDE 10 MG/2 ML VIAL IV SCH ×4 (00:57→17:15)
[2020-07-07] MEDS: SODIUM CHLORIDE 0.9% 1,000 ML IV SCH ×3 (00:59→17:20)
[2020-07-07] MEDS: METOPROLOL TARTRATE 5 MG/5 ML VIAL IV SCH ×4 (01:00→18:19)
[2020-07-07 04:26] LABS: ABG Base Excess 0.3 MMOL/L (-2.5-2.5); ABG HCO3 24.6 MMOL/L (20-26); ABG Oxygen Saturation 99.5 % (95-100); ABG PCO2 37.8 MM HG (35-48); ABG PH 7.431 (7.35-7.45); ABG PO2 386.7 MM HG (80-95); ABG TCO2 25.7 MMOL/L (23-27); Allen Test Positive; Pt O2 Delivery Device Ventilator
[2020-07-07] MEDS: methylPREDNISolone SOD SUC 40 MG/1 ML VIAL IV SCH ×2 (05:50→17:16)
[2020-07-07] MEDS: ARFORMOTEROL 15 MCG/2 ML NEB RESP TX SCH ×2 (07:36→19:13)
[2020-07-07] MEDS: BUDESONIDE 0.5 MG/2 ML NEB RESP TX SCH ×2 (07:37→19:13)
[2020-07-07] MEDS: POLYETHYLENE GLYCOL POWDER 17 GM PACK PO SCH (08:26)
[2020-07-07] MEDS: PANTOPRAZOLE 40 MG TABLET PO SCH (08:26)
[2020-07-07] MEDS: THIAMINE 100 MG TABLET PO SCH (08:26)
[2020-07-07] MEDS: MULTIVITAMIN (BEROCCA) TABLET PO SCH (08:26)
[2020-07-07] MEDS: FOLIC ACID 1 MG TABLET PO SCH (08:26)
[2020-07-07] MEDS: ENOXAPARIN 40 MG/0.4 ML SYRINGE SUBCUT SCH (08:26)
[2020-07-07 09:19] LABS: Calcium 7.9 MG/DL (8.5-10.1); Osmolality,Calculated 283.1 MOS/KG (273-304)
[2020-07-07] MEDS: FUROSEMIDE 40 MG/4 ML VIAL IV SCH ×2 (10:38→17:16)
[2020-07-07] MEDS: MAGNESIUM SULF RIDER 2 GM in PREMIX 1 EACH IV PRN (11:49)
[2020-07-07] MEDS: POTASSIUM CHLORIDE RIDER 10 MEQ in PREMIX 1 EACH IV PRN ×4 (15:17→18:32)
[2020-07-07] MEDS: METOPROLOL TARTRATE 25 MG TABLET PO SCH (21:14)
[2020-07-08] MEDS: PIPERACILLIN/TAZOBACTAM 3,375 MG in SODIUM CHLORIDE 0.9% 100 ML IV SCH ×3 (00:29→15:48)
[2020-07-08] MEDS: METOCLOPRAMIDE 10 MG/2 ML VIAL IV SCH ×4 (00:30→17:21)
[2020-07-08] MEDS: ALBUTEROL/IPRATROPIUM 3 ML NEB RESP TX SCH ×4 (00:52→18:57)
[2020-07-08] MEDS: SODIUM CHLORIDE 0.9% 1,000 ML IV SCH ×2 (01:36→10:20)
[2020-07-08] MEDS: fentaNYL INJ 1,250 MCG in SODIUM CHLORIDE 0.9% 225 ML IV PRN (01:37)
[2020-07-08] MEDS: METOPROLOL TARTRATE 5 MG/5 ML VIAL IV SCH ×4 (01:38→17:31)
[2020-07-08] MEDS: FUROSEMIDE 40 MG/4 ML VIAL IV SCH ×3 (02:50→17:29)
[2020-07-08 03:59] LABS: Basophils % 0.2 % (0.0-0.8); Eosinophils # 0.2 10*3/uL (0.0-0.87); Eosinophils % 1.7 % (0.00-10.9); Hematocrit 28.4 VOL% (42.0-52.0); Hemoglobin 8.6 GM/DL (14.0-18.0); Immature Granulocytes % 2.4 %; Immature Granulocytes Absolute 0.22 #; Lymphocytes % 21.7 % (21.2-54.2); Mean Corpuscular HGB Conc 30.3 GM/DL (32-36); Mean Corpuscular Volume 102.5 FL (87-102); Mean Platelet Volume 9.2 FL (9.6-12.0); Monocytes % 3.9 % (1.7-12.7); Neutrophils % 70.1 % (38.7-73.9); Platelet Count 370 T/CUMM (130-400); Red Blood Count 2.77 MC/CUMM (3.8-5.5); Red Cell Distribution Width 16.7 % (9.3-17.3); White Blood Count 9.3 T/CUMM (4-12)
[2020-07-08 04:16] LABS: Calcium 8.2 MG/DL (8.5-10.1); Osmolality,Calculated 284.1 MOS/KG (273-304)
[2020-07-08 04:40] LABS: ABG Base Excess 3.1 MMOL/L (-2.5-2.5); ABG HCO3 27.4 MMOL/L (20-26); ABG Oxygen Saturation 99.1 % (95-100); ABG PCO2 40.5 MM HG (35-48); ABG PH 7.448 (7.35-7.45); ABG TCO2 28.6 MMOL/L (23-27); Allen Test Positive; Pt O2 Delivery Device Ventilator
[2020-07-08] MEDS: methylPREDNISolone SOD SUC 40 MG/1 ML VIAL IV SCH ×2 (06:15→17:33)
[2020-07-08] MEDS: BUDESONIDE 0.5 MG/2 ML NEB RESP TX SCH ×2 (07:36→18:57)
[2020-07-08] MEDS: ARFORMOTEROL 15 MCG/2 ML NEB RESP TX SCH ×2 (07:36→18:57)
[2020-07-08] MEDS: METOPROLOL TARTRATE 25 MG TABLET PO SCH ×2 (09:51→21:01)
[2020-07-08] MEDS: FOLIC ACID 1 MG TABLET PO SCH (09:51)
[2020-07-08] MEDS: THIAMINE 100 MG TABLET PO SCH (09:51)
[2020-07-08] MEDS: PANTOPRAZOLE 40 MG VIAL IV SCH (09:51)
[2020-07-08] MEDS: ENOXAPARIN 40 MG/0.4 ML SYRINGE SUBCUT SCH (09:53)
[2020-07-08] MEDS: POLYETHYLENE GLYCOL POWDER 17 GM PACK PO SCH (10:12)
[2020-07-08] MEDS: POTASSIUM CHLORIDE 20 MEQ/15 ML UDCUP PER TUBE SCH ×3 (10:20→17:29)
[2020-07-08] MEDS: MULTIVITAMIN LIQUID (CENTRUM) 60 ML BOTTLE NG SCH (10:21)
[2020-07-08] MEDS ORDERED: LORazepam 2 MG/1 ML VIAL IV ONE (23:00)
[2020-07-08] MEDS ORDERED: METOPROLOL TARTRATE 5 MG/5 ML VIAL IV ONE ×2 (23:08→23:18)
[2020-07-09] MEDS: METOPROLOL TARTRATE 5 MG/5 ML VIAL IV SCH ×5 (00:30→23:47)
[2020-07-09] MEDS: LORazepam 2 MG/1 ML VIAL IV PRN (00:53)
[2020-07-09] MEDS ORDERED: FUROSEMIDE 40 MG/4 ML VIAL IV ONE (00:53)
[2020-07-09] MEDS: FUROSEMIDE 40 MG/4 ML VIAL IV SCH ×3 (01:00→17:20)
[2020-07-09] MEDS: METOCLOPRAMIDE 10 MG/2 ML VIAL IV SCH ×5 (01:09→23:47)
[2020-07-09] MEDS: PIPERACILLIN/TAZOBACTAM 3,375 MG in SODIUM CHLORIDE 0.9% 100 ML IV SCH ×4 (01:36→23:55)
[2020-07-09] MEDS ORDERED: ETOMIDATE 20 MG/10 ML VIAL IV ONE ×3 (01:51→05:00)
[2020-07-09] MEDS ORDERED: SUCCINYLCHOLINE 200 MG/10 ML VIAL ONE (01:51)
[2020-07-09] MEDS ORDERED: SUCCINYLCHOLINE 200 MG/10 ML VIAL IV ONE ×2 (01:58→05:00)
[2020-07-09] MEDS: ALBUTEROL/IPRATROPIUM 3 ML NEB RESP TX SCH ×4 (02:31→19:20)
[2020-07-09 04:30] LABS: ABG Base Excess 7.4 MMOL/L (-2.5-2.5); ABG HCO3 33.5 MMOL/L (20-26); ABG Oxygen Saturation 99.1 % (95-100); ABG PCO2 55.3 MM HG (35-48); ABG PO2 172.2 MM HG (80-95); ABG TCO2 35.2 MMOL/L (23-27); Allen Test Positive; Pt O2 Delivery Device Ventilator
[2020-07-09] MEDS: methylPREDNISolone SOD SUC 40 MG/1 ML VIAL IV SCH ×2 (04:45→16:06)
[2020-07-09 05:10] LABS: Basophils % 0.2 % (0.0-0.8); Eosinophils # 0.1 10*3/uL (0.0-0.87); Hematocrit 33.8 VOL% (42.0-52.0); Hemoglobin 10.4 GM/DL (14.0-18.0); Immature Granulocytes % 1.8 %; Immature Granulocytes Absolute 0.23 #; Lymphocytes # 2.3 10*3/uL (1.4-4.0); Mean Corpuscular HGB Conc 30.8 GM/DL (32-36); Mean Corpuscular Volume 99.1 FL (87-102); Mean Platelet Volume 9.4 FL (9.6-12.0); Monocytes % 6.3 % (1.7-12.7); Neutrophils % 72.7 % (38.7-73.9); Platelet Count 446 T/CUMM (130-400); Red Blood Count 3.41 MC/CUMM (3.8-5.5); Red Cell Distribution Width 16.4 % (9.3-17.3); White Blood Count 12.5 T/CUMM (4-12)
[2020-07-09 05:33] LABS: Calcium 8.4 MG/DL (8.5-10.1); Osmolality,Calculated 286.4 MOS/KG (273-304)
[2020-07-09] MEDS ORDERED: MAGNESIUM SULF RIDER 50 ML IV ONE (05:43)
[2020-07-09] MEDS: POTASSIUM CHLORIDE RIDER 10 MEQ in PREMIX 1 EACH IV PRN ×3 (05:49→08:23)
[2020-07-09] MEDS: BUDESONIDE 0.5 MG/2 ML NEB RESP TX SCH ×2 (07:00→19:20)
[2020-07-09] MEDS: ARFORMOTEROL 15 MCG/2 ML NEB RESP TX SCH ×2 (07:00→19:20)
[2020-07-09] MEDS: POLYETHYLENE GLYCOL POWDER 17 GM PACK PO SCH (08:06)
[2020-07-09] MEDS: THIAMINE 100 MG TABLET PO SCH (08:06)
[2020-07-09] MEDS: ENOXAPARIN 40 MG/0.4 ML SYRINGE SUBCUT SCH (08:06)
[2020-07-09] MEDS: FOLIC ACID 1 MG TABLET PO SCH (08:06)
[2020-07-09] MEDS: METOPROLOL TARTRATE 25 MG TABLET PO SCH ×2 (08:06→21:36)
[2020-07-09] MEDS: PANTOPRAZOLE 40 MG VIAL IV SCH (08:07)
[2020-07-09] MEDS ORDERED: MAGNESIUM SULF RIDER 2 GM in PREMIX 1 EACH IV ONE (08:25)
[2020-07-09] MEDS: MULTIVITAMIN LIQUID (CENTRUM) 60 ML BOTTLE NG SCH (08:33)
[2020-07-09] MEDS: LEVOFLOXACIN 750 MG TABLET PER TUBE SCH ×2 (09:25→10:05)
[2020-07-09] MEDS: POTASSIUM CHLORIDE 20 MEQ/15 ML UDCUP PER TUBE SCH ×4 (10:04→21:40)
[2020-07-10] MEDS: ALBUTEROL/IPRATROPIUM 3 ML NEB RESP TX SCH ×4 (01:23→19:15)
[2020-07-10] MEDS: FUROSEMIDE 40 MG/4 ML VIAL IV SCH ×2 (02:26→11:52)
[2020-07-10 03:12] LABS: ABG Base Excess 15.4 MMOL/L (-2.5-2.5); ABG HCO3 40.5 MMOL/L (20-26); ABG Oxygen Saturation 99.2 % (95-100); ABG PCO2 53.3 MM HG (35-48); ABG PH 7.499 (7.35-7.45); ABG PO2 201.6 MM HG (80-95); ABG TCO2 42.2 MMOL/L (23-27); Allen Test Positive; Pt O2 Delivery Device Ventilator
[2020-07-10 05:10] LABS: Basophils % 0.1 % (0.0-0.8); Eosinophils # 0.4 10*3/uL (0.0-0.87); Eosinophils % 4.9 % (0.00-10.9); Hematocrit 31.6 VOL% (42.0-52.0); Hemoglobin 9.6 GM/DL (14.0-18.0); Immature Granulocytes % 1.9 %; Immature Granulocytes Absolute 0.17 #; Lymphocytes # 2.4 10*3/uL (1.4-4.0); Lymphocytes % 26.1 % (21.2-54.2); Mean Corpuscular HGB Conc 30.4 GM/DL (32-36); Mean Corpuscular Volume 99.7 FL (87-102); Mean Platelet Volume 9.1 FL (9.6-12.0); Monocytes % 7.8 % (1.7-12.7); Neutrophils % 59.2 % (38.7-73.9); Platelet Count 413 T/CUMM (130-400); Red Blood Count 3.17 MC/CUMM (3.8-5.5); Red Cell Distribution Width 16.5 % (9.3-17.3)
[2020-07-10 05:26] LABS: Calcium 9.3 MG/DL (8.5-10.1); Osmolality,Calculated 280.5 MOS/KG (273-304)
[2020-07-10] MEDS: methylPREDNISolone SOD SUC 40 MG/1 ML VIAL IV SCH ×2 (05:44→17:30)
[2020-07-10] MEDS: METOCLOPRAMIDE 10 MG/2 ML VIAL IV SCH ×3 (05:44→17:35)
[2020-07-10] MEDS: METOPROLOL TARTRATE 5 MG/5 ML VIAL IV SCH ×3 (05:44→18:53)
[2020-07-10] MEDS: ARFORMOTEROL 15 MCG/2 ML NEB RESP TX SCH ×2 (07:19→19:15)
[2020-07-10] MEDS: BUDESONIDE 0.5 MG/2 ML NEB RESP TX SCH ×2 (07:19→19:15)
[2020-07-10] MEDS: FOLIC ACID 1 MG TABLET PO SCH (08:36)
[2020-07-10] MEDS: MULTIVITAMIN LIQUID (CENTRUM) 60 ML BOTTLE NG SCH (08:36)
[2020-07-10] MEDS: THIAMINE 100 MG TABLET PO SCH (08:36)
[2020-07-10] MEDS: ENOXAPARIN 40 MG/0.4 ML SYRINGE SUBCUT SCH (08:36)
[2020-07-10] MEDS: POLYETHYLENE GLYCOL POWDER 17 GM PACK PO SCH (08:36)
[2020-07-10] MEDS: LEVOFLOXACIN 750 MG TABLET PER TUBE SCH (08:36)
[2020-07-10] MEDS: METOPROLOL TARTRATE 25 MG TABLET PO SCH ×2 (08:36→20:27)
[2020-07-10] MEDS: PANTOPRAZOLE 40 MG VIAL IV SCH (08:38)
[2020-07-10] MEDS: PIPERACILLIN/TAZOBACTAM 3,375 MG in SODIUM CHLORIDE 0.9% 100 ML IV SCH ×2 (08:40→15:58)
[2020-07-10] MEDS ORDERED: FUROSEMIDE 40 MG/4 ML VIAL IV SCH (16:00)
[2020-07-10] MEDS: POTASSIUM CHLORIDE 20 MEQ/15 ML UDCUP PER TUBE PRN (20:27)
[2020-07-11] MEDS: METOCLOPRAMIDE 10 MG/2 ML VIAL IV SCH ×4 (00:24→18:50)
[2020-07-11] MEDS: PIPERACILLIN/TAZOBACTAM 3,375 MG in SODIUM CHLORIDE 0.9% 100 ML IV SCH ×3 (00:24→18:50)
[2020-07-11] MEDS: METOPROLOL TARTRATE 5 MG/5 ML VIAL IV SCH ×4 (00:24→18:50)
[2020-07-11] MEDS: ALBUTEROL/IPRATROPIUM 3 ML NEB RESP TX SCH ×4 (00:50→19:23)
[2020-07-11 04:28] LABS: ABG Base Excess 11.6 MMOL/L (-2.5-2.5); ABG HCO3 35.4 MMOL/L (20-26); ABG Oxygen Saturation 99.5 % (95-100); ABG PCO2 44.7 MM HG (35-48); ABG PH 7.514 (7.35-7.45); ABG TCO2 32.8 MMOL/L (23-27); Allen Test Positive; Pt O2 Delivery Device Ventilator
[2020-07-11 04:35] LABS: Basophils % 0.2 % (0.0-0.8); Eosinophils % 0.1 % (0.00-10.9); Hemoglobin 9.7 GM/DL (14.0-18.0); Immature Granulocytes % 4.4 %; Immature Granulocytes Absolute 0.45 #; Lymphocytes # 1.7 10*3/uL (1.4-4.0); Lymphocytes % 16.7 % (21.2-54.2); Mean Corpuscular HGB Conc 31.3 GM/DL (32-36); Mean Corpuscular Volume 98.1 FL (87-102); Mean Platelet Volume 9.4 FL (9.6-12.0); Monocytes % 5.6 % (1.7-12.7); Platelet Count 444 T/CUMM (130-400); Red Blood Count 3.16 MC/CUMM (3.8-5.5); Red Cell Distribution Width 16.7 % (9.3-17.3); White Blood Count 10.2 T/CUMM (4-12)
[2020-07-11 05:00] LABS: Calcium 9.4 MG/DL (8.5-10.1); Osmolality,Calculated 284.8 MOS/KG (273-304)
[2020-07-11] MEDS: methylPREDNISolone SOD SUC 40 MG/1 ML VIAL IV SCH ×2 (06:00→18:49)
[2020-07-11] MEDS: POTASSIUM CHLORIDE 20 MEQ/15 ML UDCUP PER TUBE PRN ×2 (06:48→08:26)
[2020-07-11] MEDS: ARFORMOTEROL 15 MCG/2 ML NEB RESP TX SCH ×2 (07:08→19:22)
[2020-07-11] MEDS: BUDESONIDE 0.5 MG/2 ML NEB RESP TX SCH ×2 (07:13→19:23)
[2020-07-11] MEDS: FUROSEMIDE 40 MG/4 ML VIAL IV SCH (08:24)
[2020-07-11] MEDS: PANTOPRAZOLE 40 MG VIAL IV SCH (08:26)
[2020-07-11] MEDS: LEVOFLOXACIN 750 MG TABLET PER TUBE SCH (08:26)
[2020-07-11] MEDS: MULTIVITAMIN LIQUID (CENTRUM) 60 ML BOTTLE NG SCH (08:26)
[2020-07-11] MEDS: FOLIC ACID 1 MG TABLET PO SCH (08:26)
[2020-07-11] MEDS: METOPROLOL TARTRATE 25 MG TABLET PO SCH ×2 (08:26→20:55)
[2020-07-11] MEDS: POLYETHYLENE GLYCOL POWDER 17 GM PACK PO SCH (08:26)
[2020-07-11] MEDS: THIAMINE 100 MG TABLET PO SCH (08:26)
[2020-07-11] MEDS ORDERED: LIDOCAINE 2% 20 ML VIAL ONE (08:47)
[2020-07-11] MEDS ORDERED: LIDOCAINE 1% 20 ML VIAL IM ONE (09:01)
[2020-07-11] MEDS: ENOXAPARIN 40 MG/0.4 ML SYRINGE SUBCUT SCH (10:29)
[2020-07-11] MEDS: MORPHINE 4 MG/1 ML VIAL IV PRN (11:48)
[2020-07-11] MEDS: METOPROLOL TARTRATE 5 MG/5 ML VIAL IV PRN (14:20)
[2020-07-12] MEDS: METOCLOPRAMIDE 10 MG/2 ML VIAL IV SCH ×4 (00:20→17:13)
[2020-07-12] MEDS: METOPROLOL TARTRATE 5 MG/5 ML VIAL IV SCH ×2 (00:22→05:20)
[2020-07-12] MEDS: PIPERACILLIN/TAZOBACTAM 3,375 MG in SODIUM CHLORIDE 0.9% 100 ML IV SCH ×3 (02:28→17:15)
[2020-07-12 04:25] LABS: Basophils # 0.1 10*3/uL (0.0-0.2); Basophils % 0.4 % (0.0-0.8); Eosinophils % 0.3 % (0.00-10.9); Hematocrit 33.8 VOL% (42.0-52.0); Hemoglobin 10.7 GM/DL (14.0-18.0); Immature Granulocytes % 10.6 %; Immature Granulocytes Absolute 1.24 #; Lymphocytes % 16.7 % (21.2-54.2); Mean Corpuscular HGB Conc 31.7 GM/DL (32-36); Mean Corpuscular Volume 99.4 FL (87-102); Mean Platelet Volume 9.4 FL (9.6-12.0); Monocytes % 5.4 % (1.7-12.7); Neutrophils % 66.6 % (38.7-73.9); Platelet Count 437 T/CUMM (130-400); Red Cell Distribution Width 16.6 % (9.3-17.3); White Blood Count 11.8 T/CUMM (4-12)
[2020-07-12 04:29] LABS: ABG Base Excess 8.5 MMOL/L (-2.5-2.5); ABG HCO3 32.3 MMOL/L (20-26); ABG Oxygen Saturation 99.5 % (95-100); ABG PCO2 45.6 MM HG (35-48); ABG PH 7.471 (7.35-7.45); ABG TCO2 29.9 MMOL/L (23-27); Allen Test Positive; Pt O2 Delivery Device Ventilator
[2020-07-12 04:45] LABS: Calcium 8.8 MG/DL (8.5-10.1); Osmolality,Calculated 285.8 MOS/KG (273-304)
[2020-07-12 04:52] LABS: Band Neutrophils 4 % (0-10); Eosinophils 1 % (0-10); Lymphocytes 10 % (20-55); Platelet Estimate Adequate; Segmented Neutrophils 78 % (50-85); Total Cells Counted 100
[2020-07-12 04:53] LABS: Hypochromasia 1+; Microcytosis 1+
[2020-07-12] MEDS: methylPREDNISolone SOD SUC 40 MG/1 ML VIAL IV SCH ×2 (05:15→17:11)
[2020-07-12] MEDS: POTASSIUM CHLORIDE 20 MEQ/15 ML UDCUP PER TUBE PRN (06:05)
[2020-07-12] MEDS: ARFORMOTEROL 15 MCG/2 ML NEB RESP TX SCH ×2 (08:11→19:06)
[2020-07-12] MEDS: ALBUTEROL/IPRATROPIUM 3 ML NEB RESP TX SCH ×4 (08:11→19:06)
[2020-07-12] MEDS: BUDESONIDE 0.5 MG/2 ML NEB RESP TX SCH ×2 (08:11→19:06)
[2020-07-12] MEDS: FOLIC ACID 1 MG TABLET PO SCH (08:54)
[2020-07-12] MEDS: LEVOFLOXACIN 750 MG TABLET PER TUBE SCH (08:54)
[2020-07-12] MEDS: THIAMINE 100 MG TABLET PO SCH (08:54)
[2020-07-12] MEDS: ENOXAPARIN 40 MG/0.4 ML SYRINGE SUBCUT SCH (08:55)
[2020-07-12] MEDS: METOPROLOL TARTRATE 25 MG TABLET PO SCH (08:55)
[2020-07-12] MEDS: POLYETHYLENE GLYCOL POWDER 17 GM PACK PO SCH (08:56)
[2020-07-12] MEDS: FUROSEMIDE 40 MG/4 ML VIAL IV SCH (08:56)
[2020-07-12] MEDS: PANTOPRAZOLE 40 MG VIAL IV SCH (08:58)
[2020-07-12] MEDS: MULTIVITAMIN LIQUID (CENTRUM) 60 ML BOTTLE NG SCH (09:01)
[2020-07-12] MEDS: METOPROLOL TARTRATE 100 MG TABLET PO SCH ×2 (10:28→21:37)
[2020-07-12] MEDS: LORazepam 2 MG/1 ML VIAL IV PRN ×2 (10:58→17:10)
[2020-07-12] MEDS: METOPROLOL TARTRATE 5 MG/5 ML VIAL IV PRN (17:45)
[2020-07-13] MEDS: METOCLOPRAMIDE 10 MG/2 ML VIAL IV SCH ×5 (00:12→23:14)
[2020-07-13] MEDS: LORazepam 2 MG/1 ML VIAL IV PRN ×5 (00:52→23:13)
[2020-07-13] MEDS: ALBUTEROL/IPRATROPIUM 3 ML NEB RESP TX SCH ×4 (01:23→19:19)
[2020-07-13] MEDS: PIPERACILLIN/TAZOBACTAM 3,375 MG in SODIUM CHLORIDE 0.9% 100 ML IV SCH ×2 (02:30→10:32)
[2020-07-13 03:25] LABS: ABG Base Excess 8.1 MMOL/L (-2.5-2.5); ABG HCO3 31.5 MMOL/L (20-26); ABG Oxygen Saturation 98.7 % (95-100); ABG PCO2 39.5 MM HG (35-48); ABG PO2 126.9 MM HG (80-95); ABG TCO2 32.7 MMOL/L (23-27); Allen Test Positive; Pt O2 Delivery Device Ventilator
[2020-07-13 04:19] LABS: Basophils # 0.1 10*3/uL (0.0-0.2); Basophils % 0.6 % (0.0-0.8); Eosinophils # 0.3 10*3/uL (0.0-0.87); Eosinophils % 1.9 % (0.00-10.9); Hematocrit 34.2 VOL% (42.0-52.0); Hemoglobin 10.6 GM/DL (14.0-18.0); Immature Granulocytes % 11.8 %; Immature Granulocytes Absolute 1.73 #; Lymphocytes # 3.2 10*3/uL (1.4-4.0); Lymphocytes % 21.5 % (21.2-54.2); Mean Corpuscular Volume 98.6 FL (87-102); Mean Platelet Volume 9.1 FL (9.6-12.0); Monocytes % 6.7 % (1.7-12.7); Neutrophils % 57.5 % (38.7-73.9); Platelet Count 420 T/CUMM (130-400); Red Blood Count 3.47 MC/CUMM (3.8-5.5); Red Cell Distribution Width 16.5 % (9.3-17.3); White Blood Count 14.7 T/CUMM (4-12)
[2020-07-13 04:38] LABS: Osmolality,Calculated 289.4 MOS/KG (273-304)
[2020-07-13 04:53] LABS: Band Neutrophils 1 % (0-10); Eosinophils 1 % (0-10); Lymphocytes 27 % (20-55); Metamyelocytes 1 %; Myelocytes 2 %; Segmented Neutrophils 61 % (50-85); Total Cells Counted 100
[2020-07-13 04:54] LABS: Atypical Lymphocytes Few; Microcytosis 1+; Platelet Estimate Increased
[2020-07-13] MEDS: POTASSIUM CHLORIDE 20 MEQ/15 ML UDCUP PER TUBE PRN (05:10)
[2020-07-13] MEDS: methylPREDNISolone SOD SUC 40 MG/1 ML VIAL IV SCH ×2 (05:10→17:34)
[2020-07-13] MEDS: POTASSIUM CHLORIDE 20 MEQ/15 ML UDCUP PER TUBE SCH ×3 (05:52→13:14)
[2020-07-13] MEDS: BUDESONIDE 0.5 MG/2 ML NEB RESP TX SCH ×2 (07:30→19:19)
[2020-07-13] MEDS: ARFORMOTEROL 15 MCG/2 ML NEB RESP TX SCH ×2 (07:30→19:19)
[2020-07-13] MEDS: LACTULOSE 20 GM/30 ML UDCUP PO PRN ×2 (07:51→17:33)
[2020-07-13] MEDS: ENOXAPARIN 40 MG/0.4 ML SYRINGE SUBCUT SCH (08:02)
[2020-07-13] MEDS: METOPROLOL TARTRATE 100 MG TABLET PO SCH (08:02)
[2020-07-13] MEDS: THIAMINE 100 MG TABLET PO SCH (08:02)
[2020-07-13] MEDS: FOLIC ACID 1 MG TABLET PO SCH (08:02)
[2020-07-13] MEDS: POLYETHYLENE GLYCOL POWDER 17 GM PACK PO SCH (08:02)
[2020-07-13] MEDS: LEVOFLOXACIN 750 MG TABLET PER TUBE SCH (08:02)
[2020-07-13] MEDS: PANTOPRAZOLE 40 MG VIAL IV SCH (08:03)
[2020-07-13] MEDS: FUROSEMIDE 40 MG/4 ML VIAL IV SCH (08:05)
[2020-07-13] MEDS: MULTIVITAMIN LIQUID (CENTRUM) 60 ML BOTTLE NG SCH (08:06)
[2020-07-13] MEDS: METOPROLOL TARTRATE 50 MG TABLET PER TUBE SCH (21:05)
[2020-07-13] MEDS ORDERED: LORazepam 2 MG/1 ML VIAL ONE (23:07)
[2020-07-14] MEDS: ALBUTEROL/IPRATROPIUM 3 ML NEB RESP TX SCH ×4 (01:11→18:55)
[2020-07-14 03:10] LABS: ABG Base Excess 7.7 MMOL/L (-2.5-2.5); ABG Oxygen Saturation 98.9 % (95-100); ABG PCO2 43.6 MM HG (35-48); ABG PH 7.483 (7.35-7.45); ABG PO2 144.8 MM HG (80-95); ABG TCO2 33.3 MMOL/L (23-27); Allen Test Positive; Pt O2 Delivery Device Ventilator
[2020-07-14 04:12] LABS: Basophils # 0.1 10*3/uL (0.0-0.2); Basophils % 0.7 % (0.0-0.8); Eosinophils # 0.4 10*3/uL (0.0-0.87); Eosinophils % 3.4 % (0.00-10.9); Hematocrit 33.2 VOL% (42.0-52.0); Hemoglobin 10.2 GM/DL (14.0-18.0); Immature Granulocytes % 12.5 %; Immature Granulocytes Absolute 1.55 #; Lymphocytes # 2.5 10*3/uL (1.4-4.0); Lymphocytes % 19.8 % (21.2-54.2); Mean Corpuscular HGB Conc 30.7 GM/DL (32-36); Mean Corpuscular Volume 98.8 FL (87-102); Mean Platelet Volume 9.3 FL (9.6-12.0); Monocytes % 7.1 % (1.7-12.7); Neutrophils % 56.5 % (38.7-73.9); Platelet Count 377 T/CUMM (130-400); Red Blood Count 3.36 MC/CUMM (3.8-5.5); Red Cell Distribution Width 16.5 % (9.3-17.3); White Blood Count 12.4 T/CUMM (4-12)
[2020-07-14 04:32] LABS: Calcium 9.2 MG/DL (8.5-10.1); Osmolality,Calculated 291.3 MOS/KG (273-304)
[2020-07-14 04:44] LABS: Eosinophils 1 % (0-10); Lymphocytes 21 % (20-55); Myelocytes 1 %; Segmented Neutrophils 70 % (50-85); Total Cells Counted 100
[2020-07-14 04:45] LABS: Hypochromasia Slight; Platelet Estimate Normal
[2020-07-14] MEDS: methylPREDNISolone SOD SUC 40 MG/1 ML VIAL IV SCH ×2 (05:18→18:08)
[2020-07-14] MEDS: METOCLOPRAMIDE 10 MG/2 ML VIAL IV SCH ×3 (05:18→17:09)
[2020-07-14] MEDS ORDERED: LORazepam 2 MG/1 ML VIAL ONE (06:08)
[2020-07-14] MEDS: LORazepam 2 MG/1 ML VIAL IV PRN (06:15)
[2020-07-14] MEDS: POTASSIUM CHLORIDE 20 MEQ/15 ML UDCUP PER TUBE PRN ×2 (06:18→09:46)
[2020-07-14] MEDS: ARFORMOTEROL 15 MCG/2 ML NEB RESP TX SCH ×2 (07:40→18:55)
[2020-07-14] MEDS: BUDESONIDE 0.5 MG/2 ML NEB RESP TX SCH ×2 (07:40→18:55)
[2020-07-14] MEDS: THIAMINE 100 MG TABLET PO SCH (09:43)
[2020-07-14] MEDS: LEVOFLOXACIN 750 MG TABLET PER TUBE SCH (09:43)
[2020-07-14] MEDS: NICOTINE 21 MG/24 HR PATCH TRANSDERM PRN (09:44)
[2020-07-14] MEDS: METOPROLOL TARTRATE 50 MG TABLET PER TUBE SCH ×2 (09:45→20:18)
[2020-07-14] MEDS: POLYETHYLENE GLYCOL POWDER 17 GM PACK PO SCH (09:45)
[2020-07-14] MEDS: ENOXAPARIN 40 MG/0.4 ML SYRINGE SUBCUT SCH (09:45)
[2020-07-14] MEDS: FOLIC ACID 1 MG TABLET PO SCH (09:46)
[2020-07-14] MEDS: PANTOPRAZOLE 40 MG VIAL IV SCH (09:47)
[2020-07-14] MEDS: MULTIVITAMIN LIQUID (CENTRUM) 60 ML BOTTLE NG SCH (09:47)
[2020-07-14] MEDS: FUROSEMIDE 40 MG/4 ML VIAL IV SCH (11:43)
[2020-07-14] MEDS: FUROSEMIDE 20 MG/2 ML VIAL IV SCH (11:46)
[2020-07-15] MEDS: METOCLOPRAMIDE 10 MG/2 ML VIAL IV SCH ×4 (00:25→17:20)
[2020-07-15] MEDS: ALBUTEROL/IPRATROPIUM 3 ML NEB RESP TX SCH ×4 (01:36→20:08)
[2020-07-15 03:14] LABS: Basophils # 0.1 10*3/uL (0.0-0.2); Basophils % 0.7 % (0.0-0.8); Eosinophils # 0.2 10*3/uL (0.0-0.87); Eosinophils % 1.4 % (0.00-10.9); Hematocrit 36.1 VOL% (42.0-52.0); Hemoglobin 11.3 GM/DL (14.0-18.0); Immature Granulocytes % 9.4 %; Immature Granulocytes Absolute 1.46 #; Lymphocytes # 2.8 10*3/uL (1.4-4.0); Lymphocytes % 18.2 % (21.2-54.2); Mean Corpuscular HGB Conc 31.3 GM/DL (32-36); Mean Corpuscular Volume 96.5 FL (87-102); Mean Platelet Volume 9.2 FL (9.6-12.0); Monocytes % 6.6 % (1.7-12.7); Neutrophils % 63.7 % (38.7-73.9); Platelet Count 397 T/CUMM (130-400); Red Blood Count 3.74 MC/CUMM (3.8-5.5); White Blood Count 15.5 T/CUMM (4-12)
[2020-07-15 03:18] LABS: ABG Base Excess 7.4 MMOL/L (-2.5-2.5); ABG HCO3 31.3 MMOL/L (20-26); ABG Oxygen Saturation 99.6 % (95-100); ABG PCO2 42.3 MM HG (35-48); ABG PH 7.482 (7.35-7.45); ABG TCO2 28.3 MMOL/L (23-27); Allen Test Positive
[2020-07-15 03:41] LABS: Calcium 8.9 MG/DL (8.5-10.1); Osmolality,Calculated 283.7 MOS/KG (273-304)
[2020-07-15 04:05] LABS: Band Neutrophils 1 % (0-10); Eosinophils 1 % (0-10); Lymphocytes 25 % (20-55); Metamyelocytes 1 %; Myelocytes 2 %; Segmented Neutrophils 64 % (50-85); Total Cells Counted 100
[2020-07-15 04:06] LABS: Hypochromasia 2+; Microcytosis 1+; Platelet Estimate Normal
[2020-07-15] MEDS: methylPREDNISolone SOD SUC 40 MG/1 ML VIAL IV SCH ×2 (05:10→17:15)
[2020-07-15] MEDS: BUDESONIDE 0.5 MG/2 ML NEB RESP TX SCH ×2 (07:36→20:08)
[2020-07-15] MEDS: ARFORMOTEROL 15 MCG/2 ML NEB RESP TX SCH (07:36)
[2020-07-15] MEDS: LEVOFLOXACIN 750 MG TABLET PER TUBE SCH (08:36)
[2020-07-15] MEDS: MULTIVITAMIN LIQUID (CENTRUM) 60 ML BOTTLE NG SCH (08:36)
[2020-07-15] MEDS: ENOXAPARIN 40 MG/0.4 ML SYRINGE SUBCUT SCH (08:36)
[2020-07-15] MEDS: THIAMINE 100 MG TABLET PO SCH (08:37)
[2020-07-15] MEDS: METOPROLOL TARTRATE 50 MG TABLET PER TUBE SCH ×2 (08:37→21:28)
[2020-07-15] MEDS: FOLIC ACID 1 MG TABLET PO SCH (08:37)
[2020-07-15] MEDS: FUROSEMIDE 20 MG/2 ML VIAL IV SCH (08:37)
[2020-07-15] MEDS: POLYETHYLENE GLYCOL POWDER 17 GM PACK PO SCH (08:38)
[2020-07-15] MEDS: PANTOPRAZOLE 40 MG VIAL IV SCH (08:38)
[2020-07-15] MEDS: LEVOFLOXACIN 750 MG TABLET PO SCH (11:08)
[2020-07-15] MEDS: MORPHINE 4 MG/1 ML VIAL IV PRN (15:38)
[2020-07-16] MEDS: ALBUTEROL/IPRATROPIUM 3 ML NEB RESP TX SCH ×4 (02:09→19:19)
[2020-07-16] MEDS: ARFORMOTEROL 15 MCG/2 ML NEB RESP TX SCH ×3 (02:09→19:19)
[2020-07-16 04:09] LABS: Allen Test Positive; Pt O2 Delivery Device Room Air
[2020-07-16 04:11] LABS: ABG Base Excess 6.1 MMOL/L (-2.5-2.5); ABG HCO3 30.5 MMOL/L (20-26); ABG Oxygen Saturation 95.7 % (95-100); ABG PCO2 42.9 MM HG (35-48); ABG PH 7.469 (7.35-7.45); ABG PO2 78.4 MM HG (80-95); ABG TCO2 31.8 MMOL/L (23-27)
[2020-07-16] MEDS: methylPREDNISolone SOD SUC 40 MG/1 ML VIAL IV SCH (05:28)
[2020-07-16] MEDS: METOCLOPRAMIDE 10 MG/2 ML VIAL IV SCH ×4 (05:30→18:28)
[2020-07-16 05:55] LABS: Basophils # 0.2 10*3/uL (0.0-0.2); Basophils % 0.9 % (0.0-0.8); Eosinophils # 0.2 10*3/uL (0.0-0.87); Eosinophils % 1.2 % (0.00-10.9); Hematocrit 35.3 VOL% (42.0-52.0); Hemoglobin 11.4 GM/DL (14.0-18.0); Immature Granulocytes % 6.5 %; Immature Granulocytes Absolute 1.16 #; Lymphocytes # 2.9 10*3/uL (1.4-4.0); Lymphocytes % 16.2 % (21.2-54.2); Mean Corpuscular HGB Conc 32.3 GM/DL (32-36); Mean Corpuscular Volume 95.1 FL (87-102); Mean Platelet Volume 9.4 FL (9.6-12.0); Monocytes % 8.2 % (1.7-12.7); Platelet Count 365 T/CUMM (130-400); Red Blood Count 3.71 MC/CUMM (3.8-5.5); Red Cell Distribution Width 15.6 % (9.3-17.3); White Blood Count 17.8 T/CUMM (4-12)
[2020-07-16 06:11] LABS: Calcium 9.2 MG/DL (8.5-10.1); Osmolality,Calculated 270.4 MOS/KG (273-304)
[2020-07-16 06:19] LABS: Eosinophils 1 % (0-10); Lymphocytes 19 % (20-55); Platelet Estimate Normal; Segmented Neutrophils 76 % (50-85); Total Cells Counted 100
[2020-07-16] MEDS: BUDESONIDE 0.5 MG/2 ML NEB RESP TX SCH ×2 (07:15→19:19)
[2020-07-16] MEDS: LEVOFLOXACIN 750 MG TABLET PO SCH (08:40)
[2020-07-16] MEDS: POTASSIUM CHLORIDE RIDER 10 MEQ in PREMIX 1 EACH IV PRN ×3 (08:40→14:59)
[2020-07-16] MEDS: PANTOPRAZOLE 40 MG TABLET PO SCH (08:41)
[2020-07-16] MEDS: POLYETHYLENE GLYCOL POWDER 17 GM PACK PO SCH (08:41)
[2020-07-16] MEDS: FUROSEMIDE 20 MG/2 ML VIAL IV SCH (08:41)
[2020-07-16] MEDS: THIAMINE 100 MG TABLET PO SCH (08:41)
[2020-07-16] MEDS: FOLIC ACID 1 MG TABLET PO SCH (08:41)
[2020-07-16] MEDS: METOPROLOL TARTRATE 50 MG TABLET PER TUBE SCH ×2 (08:41→20:53)
[2020-07-16] MEDS: ENOXAPARIN 40 MG/0.4 ML SYRINGE SUBCUT SCH (08:41)
[2020-07-16] MEDS: ACETAMINOPHEN 325 MG TABLET PO PRN ×3 (08:57→19:59)
[2020-07-16] MEDS: MULTIVITAMIN LIQUID (CENTRUM) 60 ML BOTTLE NG SCH (10:11)
[2020-07-16] MEDS: NICOTINE 21 MG/24 HR PATCH TRANSDERM PRN (10:11)
[2020-07-17] MEDS: ALBUTEROL/IPRATROPIUM 3 ML NEB RESP TX SCH ×4 (00:07→20:13)
[2020-07-17] MEDS: METOCLOPRAMIDE 10 MG/2 ML VIAL IV SCH ×4 (00:24→18:35)
[2020-07-17] MEDS: BUDESONIDE 0.5 MG/2 ML NEB RESP TX SCH ×2 (07:36→20:13)
[2020-07-17] MEDS: ARFORMOTEROL 15 MCG/2 ML NEB RESP TX SCH ×2 (07:36→20:13)
[2020-07-17 08:42] LABS: Basophils # 0.1 10*3/uL (0.0-0.2); Basophils % 0.3 % (0.0-0.8); Eosinophils # 0.2 10*3/uL (0.0-0.87); Eosinophils % 1.4 % (0.00-10.9); Hematocrit 32.7 VOL% (42.0-52.0); Hemoglobin 10.5 GM/DL (14.0-18.0); Immature Granulocytes % 5.4 %; Immature Granulocytes Absolute 0.93 #; Lymphocytes # 3.1 10*3/uL (1.4-4.0); Lymphocytes % 17.8 % (21.2-54.2); Mean Corpuscular HGB Conc 32.1 GM/DL (32-36); Mean Corpuscular Volume 94.8 FL (87-102); Mean Platelet Volume 9.1 FL (9.6-12.0); Monocytes % 7.9 % (1.7-12.7); Neutrophils % 67.2 % (38.7-73.9); Platelet Count 343 T/CUMM (130-400); Red Blood Count 3.45 MC/CUMM (3.8-5.5); Red Cell Distribution Width 15.5 % (9.3-17.3); White Blood Count 17.2 T/CUMM (4-12)
[2020-07-17 09:05] LABS: Hypochromasia 1+; Microcytosis 1+; Ovalocytes Slight; Platelet Estimate Adequate
[2020-07-17 09:08] LABS: Albumin 2.3 G/DL (3.4-5.0); Bilirubin,Total 0.6 MG/DL (0.2-1.0); Calcium 8.6 MG/DL (8.5-10.1); Osmolality,Calculated 269.4 MOS/KG (273-304); Total Protein 6.5 G/DL (6.4-8.3)
[2020-07-17] MEDS: ACETAMINOPHEN 325 MG TABLET PO PRN (09:24)
[2020-07-17] MEDS: THIAMINE 100 MG TABLET PO SCH (09:25)
[2020-07-17] MEDS: METOPROLOL TARTRATE 50 MG TABLET PER TUBE SCH ×2 (09:25→22:29)
[2020-07-17] MEDS: LEVOFLOXACIN 750 MG TABLET PO SCH (09:26)
[2020-07-17] MEDS: PANTOPRAZOLE 40 MG TABLET PO SCH (09:26)
[2020-07-17] MEDS: FUROSEMIDE 20 MG/2 ML VIAL IV SCH (09:27)
[2020-07-17] MEDS: methylPREDNISolone SOD SUC 40 MG/1 ML VIAL IV SCH (09:30)
[2020-07-17] MEDS: ENOXAPARIN 40 MG/0.4 ML SYRINGE SUBCUT SCH (09:34)
[2020-07-17] MEDS: NICOTINE 21 MG/24 HR PATCH TRANSDERM PRN (09:35)
[2020-07-17] MEDS: POLYETHYLENE GLYCOL POWDER 17 GM PACK PO SCH (09:45)
[2020-07-17] MEDS: POTASSIUM CHLORIDE RIDER 10 MEQ in PREMIX 1 EACH IV PRN ×4 (10:49→18:28)
[2020-07-17] MEDS: FOLIC ACID 1 MG TABLET PO SCH (10:52)
[2020-07-17] MEDS: MULTIVITAMIN LIQUID (CENTRUM) 60 ML BOTTLE NG SCH (10:53)
[2020-07-18] MEDS: METOCLOPRAMIDE 10 MG/2 ML VIAL IV SCH ×2 (00:07→05:41)
[2020-07-18] MEDS: ALBUTEROL/IPRATROPIUM 3 ML NEB RESP TX SCH ×4 (01:29→19:48)
[2020-07-18 05:44] LABS: Basophils # 0.1 10*3/uL (0.0-0.2); Basophils % 0.6 % (0.0-0.8); Eosinophils # 0.2 10*3/uL (0.0-0.87); Eosinophils % 0.9 % (0.00-10.9); Hematocrit 35.9 VOL% (42.0-52.0); Hemoglobin 11.3 GM/DL (14.0-18.0); Immature Granulocytes % 4.7 %; Immature Granulocytes Absolute 0.79 #; Lymphocytes % 23.5 % (21.2-54.2); Mean Corpuscular HGB Conc 31.5 GM/DL (32-36); Mean Corpuscular Volume 96.5 FL (87-102); Mean Platelet Volume 9.2 FL (9.6-12.0); Monocytes % 8.4 % (1.7-12.7); Neutrophils % 61.9 % (38.7-73.9); Platelet Count 353 T/CUMM (130-400); Red Blood Count 3.72 MC/CUMM (3.8-5.5); Red Cell Distribution Width 15.4 % (9.3-17.3); White Blood Count 16.8 T/CUMM (4-12)
[2020-07-18 06:05] LABS: Band Neutrophils 1 % (0-10); Eosinophils 1 % (0-10); Hypochromasia 1+; Lymphocytes 23 % (20-55); Microcytosis 1+; Platelet Estimate Adequate; Segmented Neutrophils 66 % (50-85); Total Cells Counted 100
[2020-07-18 06:10] LABS: Albumin 2.5 G/DL (3.4-5.0); Bilirubin,Total 0.8 MG/DL (0.2-1.0); Osmolality,Calculated 270.1 MOS/KG (273-304)
[2020-07-18] MEDS: ARFORMOTEROL 15 MCG/2 ML NEB RESP TX SCH ×2 (07:37→19:48)
[2020-07-18] MEDS: BUDESONIDE 0.5 MG/2 ML NEB RESP TX SCH ×2 (07:37→19:48)
[2020-07-18] MEDS: POLYETHYLENE GLYCOL POWDER 17 GM PACK PO SCH (09:37)
[2020-07-18] MEDS: FUROSEMIDE 20 MG/2 ML VIAL IV SCH (09:37)
[2020-07-18] MEDS: METOPROLOL TARTRATE 50 MG TABLET PER TUBE SCH ×2 (09:38→21:18)
[2020-07-18] MEDS: ENOXAPARIN 40 MG/0.4 ML SYRINGE SUBCUT SCH (09:38)
[2020-07-18] MEDS: THIAMINE 100 MG TABLET PO SCH (09:38)
[2020-07-18] MEDS: methylPREDNISolone SOD SUC 40 MG/1 ML VIAL IV SCH (09:38)
[2020-07-18] MEDS: PANTOPRAZOLE 40 MG TABLET PO SCH (09:38)
[2020-07-18] MEDS: LEVOFLOXACIN 750 MG TABLET PO SCH (09:38)
[2020-07-18] MEDS: FOLIC ACID 1 MG TABLET PO SCH (09:38)
[2020-07-18] MEDS: MULTIVITAMIN LIQUID (CENTRUM) 60 ML BOTTLE NG SCH (09:58)
[2020-07-18] MEDS ORDERED: POTASSIUM CHLORIDE INJ 50 MEQ in SODIUM CHLORIDE 0.9% 500 ML IV ONE (11:00)
[2020-07-18] MEDS: POTASSIUM CHLORIDE 20 MEQ TABLET PO SCH (12:06)
[2020-07-18] MEDS: METOCLOPRAMIDE 10 MG/10 ML UDCUP PO SCH ×3 (12:06→21:18)
[2020-07-18] MEDS: ACETAMINOPHEN 325 MG TABLET PO PRN (19:23)
[2020-07-18] MEDS: NICOTINE 21 MG/24 HR PATCH TRANSDERM PRN (21:17)
[2020-07-19] MEDS: ALBUTEROL/IPRATROPIUM 3 ML NEB RESP TX SCH ×4 (02:01→19:51)
[2020-07-19] MEDS: ACETAMINOPHEN 325 MG TABLET PO PRN ×3 (03:25→20:24)
[2020-07-19 05:29] LABS: Basophils % 0.3 % (0.0-0.8); Eosinophils % 0.3 % (0.00-10.9); Hematocrit 33.7 VOL% (42.0-52.0); Hemoglobin 10.5 GM/DL (14.0-18.0); Immature Granulocytes % 4.2 %; Immature Granulocytes Absolute 0.56 #; Lymphocytes # 3.3 10*3/uL (1.4-4.0); Lymphocytes % 24.2 % (21.2-54.2); Mean Corpuscular HGB Conc 31.2 GM/DL (32-36); Mean Corpuscular Volume 96.3 FL (87-102); Monocytes % 7.9 % (1.7-12.7); Neutrophils % 63.1 % (38.7-73.9); Platelet Count 353 T/CUMM (130-400); Red Cell Distribution Width 15.3 % (9.3-17.3); White Blood Count 13.5 T/CUMM (4-12)
[2020-07-19 05:48] LABS: Albumin 2.5 G/DL (3.4-5.0); Bilirubin,Total 1.3 MG/DL (0.2-1.0); Calcium 9.3 MG/DL (8.5-10.1); Osmolality,Calculated 273.8 MOS/KG (273-304); Total Protein 6.9 G/DL (6.4-8.3)
[2020-07-19 05:56] LABS: Hypochromasia 1+; Lymphocytes 20 % (20-55); Microcytosis 1+; Platelet Estimate Adequate; Segmented Neutrophils 72 % (50-85); Total Cells Counted 100
[2020-07-19] MEDS: ARFORMOTEROL 15 MCG/2 ML NEB RESP TX SCH ×2 (08:00→19:51)
[2020-07-19] MEDS: BUDESONIDE 0.5 MG/2 ML NEB RESP TX SCH ×2 (08:00→19:51)
[2020-07-19] MEDS: FUROSEMIDE 20 MG/2 ML VIAL IV SCH (08:56)
[2020-07-19] MEDS: POLYETHYLENE GLYCOL POWDER 17 GM PACK PO SCH (08:56)
[2020-07-19] MEDS: METOCLOPRAMIDE 10 MG/10 ML UDCUP PO SCH ×4 (08:58→20:25)
[2020-07-19] MEDS: ENOXAPARIN 40 MG/0.4 ML SYRINGE SUBCUT SCH (08:58)
[2020-07-19] MEDS: THIAMINE 100 MG TABLET PO SCH (08:59)
[2020-07-19] MEDS: LEVOFLOXACIN 750 MG TABLET PO SCH (08:59)
[2020-07-19] MEDS: METOPROLOL TARTRATE 50 MG TABLET PER TUBE SCH ×2 (08:59→20:24)
[2020-07-19] MEDS: POTASSIUM CHLORIDE 20 MEQ TABLET PO SCH (08:59)
[2020-07-19] MEDS: FOLIC ACID 1 MG TABLET PO SCH (08:59)
[2020-07-19] MEDS: methylPREDNISolone SOD SUC 40 MG/1 ML VIAL IV SCH (09:08)
[2020-07-19] MEDS: MULTIVITAMIN (CENTRUM) TABLET PO SCH (11:12)
[2020-07-19] MEDS ORDERED: diphenhydrAMINE CAP 25 MG CAPSULE ONE (11:54)
[2020-07-19] MEDS: diphenhydrAMINE CAP 25 MG CAPSULE PO PRN (12:13)
[2020-07-19] MEDS: ZALEPLON 5 MG CAPSULE PO PRN (22:30)
[2020-07-20] MEDS: ALBUTEROL/IPRATROPIUM 3 ML NEB RESP TX SCH ×4 (01:03→19:50)
[2020-07-20] MEDS: ACETAMINOPHEN 325 MG TABLET PO PRN ×2 (03:26→20:29)
[2020-07-20] MEDS: ALBUTEROL/IPRATROPIUM 3 ML NEB RESP TX PRN (05:15)
[2020-07-20] MEDS ORDERED: LORazepam 2 MG/1 ML VIAL IV ONE (05:31)
[2020-07-20 06:09] LABS: Basophils # 0.1 10*3/uL (0.0-0.2); Basophils % 0.2 % (0.0-0.8); Eosinophils % 0.1 % (0.00-10.9); Hematocrit 37.5 VOL% (42.0-52.0); Hemoglobin 11.7 GM/DL (14.0-18.0); Immature Granulocytes % 2.1 %; Immature Granulocytes Absolute 0.48 #; Lymphocytes # 2.5 10*3/uL (1.4-4.0); Lymphocytes % 10.8 % (21.2-54.2); Mean Corpuscular HGB Conc 31.2 GM/DL (32-36); Mean Corpuscular Volume 95.9 FL (87-102); Mean Platelet Volume 9.3 FL (9.6-12.0); Monocytes % 4.6 % (1.7-12.7); Neutrophils % 82.2 % (38.7-73.9); Platelet Count 421 T/CUMM (130-400); Red Blood Count 3.91 MC/CUMM (3.8-5.5); Red Cell Distribution Width 15.4 % (9.3-17.3); White Blood Count 22.7 T/CUMM (4-12)
[2020-07-20 06:10] LABS: Albumin 2.7 G/DL (3.4-5.0); Bilirubin,Total 1.3 MG/DL (0.2-1.0); Calcium 9.4 MG/DL (8.5-10.1); Osmolality,Calculated 268.2 MOS/KG (273-304); Total Protein 7.1 G/DL (6.4-8.3)
[2020-07-20] MEDS: ARFORMOTEROL 15 MCG/2 ML NEB RESP TX SCH ×2 (07:30→19:50)
[2020-07-20] MEDS: BUDESONIDE 0.5 MG/2 ML NEB RESP TX SCH ×2 (07:31→19:50)
[2020-07-20] MEDS: MULTIVITAMIN (CENTRUM) TABLET PO SCH (09:07)
[2020-07-20] MEDS: METOPROLOL TARTRATE 50 MG TABLET PER TUBE SCH ×2 (09:07→20:30)
[2020-07-20] MEDS: ENOXAPARIN 40 MG/0.4 ML SYRINGE SUBCUT SCH (09:07)
[2020-07-20] MEDS: POTASSIUM CHLORIDE 20 MEQ TABLET PO SCH (09:10)
[2020-07-20] MEDS: POLYETHYLENE GLYCOL POWDER 17 GM PACK PO SCH (09:10)
[2020-07-20] MEDS: FOLIC ACID 1 MG TABLET PO SCH (09:10)
[2020-07-20] MEDS: LEVOFLOXACIN 750 MG TABLET PO SCH (09:10)
[2020-07-20] MEDS: FUROSEMIDE 40 MG TABLET PO SCH (09:10)
[2020-07-20] MEDS: THIAMINE 100 MG TABLET PO SCH (09:10)
[2020-07-20] MEDS: METOCLOPRAMIDE 10 MG/10 ML UDCUP PO SCH ×4 (09:10→20:29)
[2020-07-20] MEDS: methylPREDNISolone SOD SUC 40 MG/1 ML VIAL IV SCH (09:11)
[2020-07-20 09:40] LABS: Band Neutrophils 3 % (0-10); Lymphocytes 7 % (20-55); Segmented Neutrophils 85 % (50-85); Total Cells Counted 100
[2020-07-20 09:41] LABS: Polychromasia Slight; Schistocytes Slight; Stomatocytes Few
[2020-07-20 09:43] LABS: Hypochromasia 2+; Platelet Estimate Increased; Target Cells Few
[2020-07-20] MEDS: ZALEPLON 5 MG CAPSULE PO PRN (20:30)
[2020-07-21] MEDS: ALBUTEROL/IPRATROPIUM 3 ML NEB RESP TX SCH ×4 (01:10→19:37)
[2020-07-21] MEDS: BUDESONIDE 0.5 MG/2 ML NEB RESP TX SCH ×2 (07:08→19:37)
[2020-07-21] MEDS: ARFORMOTEROL 15 MCG/2 ML NEB RESP TX SCH ×2 (07:08→19:37)
[2020-07-21] MEDS: ACETAMINOPHEN 325 MG TABLET PO PRN ×3 (07:23→23:44)
[2020-07-21 08:49] LABS: Basophils # 0.1 10*3/uL (0.0-0.2); Basophils % 0.2 % (0.0-0.8); Eosinophils % 0.1 % (0.00-10.9); Hematocrit 31.5 VOL% (42.0-52.0); Hemoglobin 10.2 GM/DL (14.0-18.0); Immature Granulocytes % 1.2 %; Immature Granulocytes Absolute 0.28 #; Lymphocytes # 2.2 10*3/uL (1.4-4.0); Lymphocytes % 9.6 % (21.2-54.2); Mean Corpuscular HGB Conc 32.4 GM/DL (32-36); Mean Corpuscular Volume 92.9 FL (87-102); Mean Platelet Volume 8.8 FL (9.6-12.0); Monocytes % 5.2 % (1.7-12.7); Neutrophils % 83.7 % (38.7-73.9); Platelet Count 333 T/CUMM (130-400); Red Blood Count 3.39 MC/CUMM (3.8-5.5); Red Cell Distribution Width 15.4 % (9.3-17.3); White Blood Count 23.3 T/CUMM (4-12)
[2020-07-21] MEDS: MULTIVITAMIN (CENTRUM) TABLET PO SCH (09:10)
[2020-07-21] MEDS: FOLIC ACID 1 MG TABLET PO SCH (09:10)
[2020-07-21] MEDS: POLYETHYLENE GLYCOL POWDER 17 GM PACK PO SCH (09:10)
[2020-07-21 09:11] LABS: Calcium 8.6 MG/DL (8.5-10.1); Osmolality,Calculated 266.4 MOS/KG (273-304)
[2020-07-21] MEDS: POTASSIUM CHLORIDE 20 MEQ TABLET PO SCH (09:11)
[2020-07-21] MEDS: METOPROLOL TARTRATE 50 MG TABLET PER TUBE SCH ×2 (09:11→20:53)
[2020-07-21] MEDS: FUROSEMIDE 40 MG TABLET PO SCH (09:11)
[2020-07-21] MEDS: LEVOFLOXACIN 750 MG TABLET PO SCH (09:11)
[2020-07-21] MEDS: THIAMINE 100 MG TABLET PO SCH (09:11)
[2020-07-21] MEDS: METOCLOPRAMIDE 10 MG/10 ML UDCUP PO SCH ×4 (09:12→20:53)
[2020-07-21] MEDS: methylPREDNISolone SOD SUC 40 MG/1 ML VIAL IV SCH (09:14)
[2020-07-21] MEDS: ENOXAPARIN 40 MG/0.4 ML SYRINGE SUBCUT SCH (09:17)
[2020-07-21] MEDS: POTASSIUM CHLORIDE RIDER 10 MEQ in PREMIX 1 EACH IV PRN ×3 (10:05→13:10)
[2020-07-21 11:40] LABS: Lymphocytes 4 % (20-55); Platelet Estimate Normal; Polychromasia Slight; Segmented Neutrophils 91 % (50-85); Total Cells Counted 100
[2020-07-21] MEDS: MAGNESIUM SULF RIDER 2 GM in PREMIX 1 EACH IV PRN (15:43)
[2020-07-21] MEDS: ZALEPLON 5 MG CAPSULE PO PRN (20:53)
[2020-07-22] MEDS: ALBUTEROL/IPRATROPIUM 3 ML NEB RESP TX SCH ×4 (01:28→20:24)
[2020-07-22] MEDS: ACETAMINOPHEN 325 MG TABLET PO PRN (05:27)
[2020-07-22 05:53] LABS: Basophils % 0.1 % (0.0-0.8); Eosinophils # 0.1 10*3/uL (0.0-0.87); Eosinophils % 0.3 % (0.00-10.9); Hematocrit 29.2 VOL% (42.0-52.0); Hemoglobin 9.2 GM/DL (14.0-18.0); Immature Granulocytes % 1.3 %; Immature Granulocytes Absolute 0.28 #; Lymphocytes # 2.2 10*3/uL (1.4-4.0); Lymphocytes % 10.1 % (21.2-54.2); Mean Corpuscular HGB Conc 31.5 GM/DL (32-36); Mean Corpuscular Volume 93.9 FL (87-102); Mean Platelet Volume 9.3 FL (9.6-12.0); Monocytes % 5.3 % (1.7-12.7); Neutrophils % 82.9 % (38.7-73.9); Platelet Count 361 T/CUMM (130-400); Red Blood Count 3.11 MC/CUMM (3.8-5.5); Red Cell Distribution Width 15.3 % (9.3-17.3); White Blood Count 22.2 T/CUMM (4-12)
[2020-07-22 06:13] LABS: Band Neutrophils 1 % (0-10); Hypochromasia 1+; Lymphocytes 8 % (20-55); Microcytosis 1+; Ovalocytes Slight; Platelet Estimate Adequate; Segmented Neutrophils 88 % (50-85); Total Cells Counted 100
[2020-07-22 06:21] LABS: Calcium 8.4 MG/DL (8.5-10.1); Osmolality,Calculated 268.1 MOS/KG (273-304)
[2020-07-22] MEDS ORDERED: POTASSIUM CHLORIDE 20 MEQ TABLET PO ONE ×2 (07:47→12:40)
[2020-07-22] MEDS: ARFORMOTEROL 15 MCG/2 ML NEB RESP TX SCH ×2 (09:25→20:24)
[2020-07-22] MEDS: BUDESONIDE 0.5 MG/2 ML NEB RESP TX SCH ×2 (09:25→20:24)
[2020-07-22] MEDS: LEVOFLOXACIN 750 MG TABLET PO SCH (09:27)
[2020-07-22] MEDS: FOLIC ACID 1 MG TABLET PO SCH (09:27)
[2020-07-22] MEDS: FUROSEMIDE 40 MG TABLET PO SCH (09:28)
[2020-07-22] MEDS: THIAMINE 100 MG TABLET PO SCH (09:29)
[2020-07-22] MEDS: METOPROLOL TARTRATE 50 MG TABLET PER TUBE SCH ×2 (09:29→21:27)
[2020-07-22] MEDS: MULTIVITAMIN (CENTRUM) TABLET PO SCH (09:29)
[2020-07-22] MEDS: ENOXAPARIN 40 MG/0.4 ML SYRINGE SUBCUT SCH (09:30)
[2020-07-22] MEDS: methylPREDNISolone SOD SUC 40 MG/1 ML VIAL IV SCH (09:31)
[2020-07-22] MEDS: POLYETHYLENE GLYCOL POWDER 17 GM PACK PO SCH (09:31)
[2020-07-22] MEDS: METOCLOPRAMIDE 10 MG/10 ML UDCUP PO SCH ×4 (09:34→21:27)
[2020-07-22] MEDS: POTASSIUM CHLORIDE 20 MEQ TABLET PO SCH ×3 (09:46→21:27)
[2020-07-22] MEDS ORDERED: [UNRECOGNIZED DRUG - OTHER] IV ONE (10:00)
[2020-07-22] MEDS ORDERED: POTASSIUM CHLORIDE IV ONE (10:00)
[2020-07-22] MEDS ORDERED: MAGNESIUM SULF IV ONE (10:00)
[2020-07-22] MEDS: ZALEPLON 5 MG CAPSULE PO PRN (23:16)
[2020-07-23] MEDS: ALBUTEROL/IPRATROPIUM 3 ML NEB RESP TX SCH ×4 (03:00→20:01)
[2020-07-23] MEDS: ARFORMOTEROL 15 MCG/2 ML NEB RESP TX SCH ×2 (07:57→20:01)
[2020-07-23] MEDS: BUDESONIDE 0.5 MG/2 ML NEB RESP TX SCH ×2 (07:57→20:01)
[2020-07-23] MEDS ORDERED: TALC INTRAPLEURAL POWDER 3 GM VIAL INTRAPLEUR ONE ×2 (08:04→10:21)
[2020-07-23 08:13] LABS: Basophils % 0.1 % (0.0-0.8); Eosinophils # 0.1 10*3/uL (0.0-0.87); Eosinophils % 0.3 % (0.00-10.9); Hematocrit 28.7 VOL% (42.0-52.0); Hemoglobin 8.8 GM/DL (14.0-18.0); Immature Granulocytes % 1.3 %; Lymphocytes # 1.8 10*3/uL (1.4-4.0); Lymphocytes % 11.6 % (21.2-54.2); Mean Corpuscular HGB Conc 30.7 GM/DL (32-36); Mean Platelet Volume 8.7 FL (9.6-12.0); Monocytes % 5.3 % (1.7-12.7); Neutrophils % 81.4 % (38.7-73.9); Platelet Count 366 T/CUMM (130-400); Red Blood Count 3.02 MC/CUMM (3.8-5.5); Red Cell Distribution Width 15.3 % (9.3-17.3); White Blood Count 15.8 T/CUMM (4-12)
[2020-07-23 08:31] LABS: Calcium 8.8 MG/DL (8.5-10.1); Osmolality,Calculated 270.8 MOS/KG (273-304)
[2020-07-23] MEDS: methylPREDNISolone SOD SUC 40 MG/1 ML VIAL IV SCH (08:53)
[2020-07-23] MEDS: POTASSIUM CHLORIDE 20 MEQ TABLET PO SCH ×2 (09:22→20:56)
[2020-07-23] MEDS: MULTIVITAMIN (CENTRUM) TABLET PO SCH (09:22)
[2020-07-23] MEDS: METOCLOPRAMIDE 10 MG/10 ML UDCUP PO SCH ×4 (09:22→20:58)
[2020-07-23] MEDS: FUROSEMIDE 40 MG TABLET PO SCH (09:22)
[2020-07-23] MEDS: FOLIC ACID 1 MG TABLET PO SCH (09:22)
[2020-07-23] MEDS: THIAMINE 100 MG TABLET PO SCH (09:23)
[2020-07-23] MEDS: LEVOFLOXACIN 750 MG TABLET PO SCH (09:23)
[2020-07-23] MEDS: POLYETHYLENE GLYCOL POWDER 17 GM PACK PO SCH (09:23)
[2020-07-23] MEDS: METOPROLOL TARTRATE 50 MG TABLET PER TUBE SCH ×2 (09:23→20:58)
[2020-07-23] MEDS ORDERED: BUPIVACAINE 0.5% 50 ML VIAL ONE (10:11)
[2020-07-23] MEDS ORDERED: TISSUE ADHESIVE 1 EACH APPLICATOR TOP ONE (10:26)
[2020-07-23] MEDS ORDERED: SUGAMMADEX 200 MG/2 ML VIAL IV ONE (10:27)
[2020-07-23] MEDS ORDERED: SEVOFLURANE 1 UNIT/15 MINUTE INH ONE (11:02)
[2020-07-23] MEDS ORDERED: fentaNYL 100 MCG/2 ML VIAL ONE (11:02)
[2020-07-23] MEDS ORDERED: DEXAMETHASONE 4 MG/1 ML VIAL ONE (11:02)
[2020-07-23] MEDS ORDERED: LIDOCAINE 2% 5 ML VIAL ONE (11:02)
[2020-07-23] MEDS ORDERED: MIDAZOLAM 2 MG/2 ML VIAL ONE (11:02)
[2020-07-23] MEDS ORDERED: ONDANSETRON 4 MG/2 ML VIAL ONE (11:02)
[2020-07-23] MEDS ORDERED: ACETAMINOPHEN 1,000 MG/100 ML VIAL IV ONE (11:03)
[2020-07-23] MEDS ORDERED: GLYCOPYRROLATE 0.4 MG/2 ML VIAL ONE (11:03)
[2020-07-23] MEDS ORDERED: LACTATED RINGERS 1,000 ML IV ONE (11:03)
[2020-07-23] MEDS ORDERED: ROCURONIUM 100 MG/10 ML VIAL IV ONE (11:03)
[2020-07-23] MEDS ORDERED: METOPROLOL TARTRATE 5 MG/5 ML VIAL IV ONE (11:03)
[2020-07-23] MEDS ORDERED: ETOMIDATE 40 MG/20 ML VIAL IV ONE (11:03)
[2020-07-23] MEDS: ACETAMINOPHEN 325 MG TABLET PO PRN ×2 (11:58→20:57)
[2020-07-23] MEDS: ZALEPLON 5 MG CAPSULE PO PRN (21:46)
[2020-07-24] MEDS: ALBUTEROL/IPRATROPIUM 3 ML NEB RESP TX SCH (01:00)
[2020-07-24] MEDS: ARFORMOTEROL 15 MCG/2 ML NEB RESP TX SCH ×2 (07:10→19:35)
[2020-07-24] MEDS: BUDESONIDE 0.5 MG/2 ML NEB RESP TX SCH ×2 (07:10→19:36)
[2020-07-24] MEDS: ALBUTEROL/IPRATROPIUM 3 ML NEB RESP TX PRN (07:10)
[2020-07-24] MEDS: FUROSEMIDE 40 MG TABLET PO SCH (09:19)
[2020-07-24] MEDS: THIAMINE 100 MG TABLET PO SCH (09:20)
[2020-07-24] MEDS: FOLIC ACID 1 MG TABLET PO SCH (09:20)
[2020-07-24] MEDS: MULTIVITAMIN (CENTRUM) TABLET PO SCH (09:20)
[2020-07-24] MEDS: METOPROLOL TARTRATE 50 MG TABLET PER TUBE SCH ×2 (09:20→21:04)
[2020-07-24] MEDS: LEVOFLOXACIN 750 MG TABLET PO SCH (09:20)
[2020-07-24] MEDS: POTASSIUM CHLORIDE 20 MEQ TABLET PO SCH ×2 (09:20→21:04)
[2020-07-24] MEDS: methylPREDNISolone SOD SUC 40 MG/1 ML VIAL IV SCH (09:21)
[2020-07-24] MEDS: POLYETHYLENE GLYCOL POWDER 17 GM PACK PO SCH (09:22)
[2020-07-24] MEDS: METOCLOPRAMIDE 10 MG/10 ML UDCUP PO SCH ×4 (09:23→21:04)
[2020-07-25 04:07] LABS: Basophils # 0.1 10*3/uL (0.0-0.2); Basophils % 0.5 % (0.0-0.8); Eosinophils % 0.1 % (0.00-10.9); Hematocrit 32.4 VOL% (42.0-52.0); Hemoglobin 10.1 GM/DL (14.0-18.0); Immature Granulocytes % 3.6 %; Immature Granulocytes Absolute 0.79 #; Lymphocytes # 2.8 10*3/uL (1.4-4.0); Lymphocytes % 12.7 % (21.2-54.2); Mean Corpuscular HGB Conc 31.2 GM/DL (32-36); Mean Corpuscular Volume 92.3 FL (87-102); Mean Platelet Volume 9.1 FL (9.6-12.0); Neutrophils % 76.1 % (38.7-73.9); Platelet Count 396 T/CUMM (130-400); Red Blood Count 3.51 MC/CUMM (3.8-5.5); Red Cell Distribution Width 15.4 % (9.3-17.3); White Blood Count 21.8 T/CUMM (4-12)
[2020-07-25 04:25] LABS: Calcium 9.1 MG/DL (8.5-10.1); Osmolality,Calculated 262.5 MOS/KG (273-304)
[2020-07-25 04:40] LABS: Hypochromasia 1+; Lymphocytes 13 % (20-55); Platelet Estimate Adequate; Segmented Neutrophils 82 % (50-85); Total Cells Counted 100
[2020-07-25] MEDS: BUDESONIDE 0.5 MG/2 ML NEB RESP TX SCH ×2 (07:45→19:46)
[2020-07-25] MEDS: ARFORMOTEROL 15 MCG/2 ML NEB RESP TX SCH ×2 (07:45→19:46)
[2020-07-25] MEDS: METOCLOPRAMIDE 10 MG/10 ML UDCUP PO SCH ×6 (08:37→21:11)
[2020-07-25] MEDS: FUROSEMIDE 40 MG TABLET PO SCH (08:38)
[2020-07-25] MEDS: FOLIC ACID 1 MG TABLET PO SCH (08:38)
[2020-07-25] MEDS: POTASSIUM CHLORIDE 20 MEQ TABLET PO SCH ×2 (08:38→21:06)
[2020-07-25] MEDS: METOPROLOL TARTRATE 50 MG TABLET PER TUBE SCH ×2 (08:38→21:06)
[2020-07-25] MEDS: MULTIVITAMIN (CENTRUM) TABLET PO SCH (08:38)
[2020-07-25] MEDS: THIAMINE 100 MG TABLET PO SCH (08:38)
[2020-07-25] MEDS: ENOXAPARIN 40 MG/0.4 ML SYRINGE SUBCUT SCH (08:38)
[2020-07-25] MEDS: LEVOFLOXACIN 750 MG TABLET PO SCH (08:38)
[2020-07-25] MEDS: POLYETHYLENE GLYCOL POWDER 17 GM PACK PO SCH (08:39)
[2020-07-25] MEDS: MAGNESIUM SULF RIDER 4 GM in PREMIX 1 EACH IV PRN (08:39)
[2020-07-25] MEDS: methylPREDNISolone SOD SUC 40 MG/1 ML VIAL IV SCH (08:39)
[2020-07-25 18:32] LABS: Bilirubin,Urine Negative (Negative); Blood, Urine Negative (Negative); Glucose,Urine (UA) Negative (Negative); Hyaline Casts,Urine 3 /LPF (0-3); Ketones,Urine Negative (Negative); Nitrite,Urine Negative (Negative); Protein,Urine Negative; RBC,Urine 1 /HPF (0-4); Squamous Epithelial Cell,Urine Occasional /HPF (0-10); Urine Appearance CLEAR (Clear); Urine Color Yellow (Yellow); Urine Specific Gravity 1.006 (1.001-1.035); Urine Urobilinogen < 2.0 EU/DL (0.2-1.0); WBC,Urine 1 /HPF (0-6)
[2020-07-25] MEDS: ZALEPLON 5 MG CAPSULE PO PRN (21:06)
[2020-07-26 04:05] LABS: Basophils # 0.1 10*3/uL (0.0-0.2); Basophils % 0.7 % (0.0-0.8); Eosinophils # 0.1 10*3/uL (0.0-0.87); Eosinophils % 0.4 % (0.00-10.9); Hematocrit 30.4 VOL% (42.0-52.0); Hemoglobin 9.9 GM/DL (14.0-18.0); Immature Granulocytes % 5.8 %; Immature Granulocytes Absolute 1.06 #; Lymphocytes # 3.5 10*3/uL (1.4-4.0); Lymphocytes % 19.1 % (21.2-54.2); Mean Corpuscular HGB Conc 32.6 GM/DL (32-36); Mean Corpuscular Volume 90.2 FL (87-102); Mean Platelet Volume 9.1 FL (9.6-12.0); Monocytes % 7.5 % (1.7-12.7); Neutrophils % 66.5 % (38.7-73.9); Platelet Count 398 T/CUMM (130-400); Red Blood Count 3.37 MC/CUMM (3.8-5.5); Red Cell Distribution Width 15.2 % (9.3-17.3); White Blood Count 18.2 T/CUMM (4-12)
[2020-07-26 04:27] LABS: Osmolality,Calculated 259.7 MOS/KG (273-304)
[2020-07-26 04:36] LABS: Band Neutrophils 5 % (0-10); Lymphocytes 23 % (20-55); Myelocytes 1 %; Segmented Neutrophils 65 % (50-85); Total Cells Counted 100
[2020-07-26 04:37] LABS: Reactive Lymphocytes Few
[2020-07-26 04:38] LABS: Hypochromasia 1+; Platelet Estimate Normal
[2020-07-26] MEDS: BUDESONIDE 0.5 MG/2 ML NEB RESP TX SCH ×2 (07:19→19:35)
[2020-07-26] MEDS: ARFORMOTEROL 15 MCG/2 ML NEB RESP TX SCH ×2 (07:19→19:35)
[2020-07-26] MEDS: ENOXAPARIN 40 MG/0.4 ML SYRINGE SUBCUT SCH (08:51)
[2020-07-26] MEDS: FUROSEMIDE 40 MG TABLET PO SCH (08:51)
[2020-07-26] MEDS: METOPROLOL TARTRATE 50 MG TABLET PER TUBE SCH ×2 (08:51→21:49)
[2020-07-26] MEDS: MULTIVITAMIN (CENTRUM) TABLET PO SCH (08:51)
[2020-07-26] MEDS: METOCLOPRAMIDE 10 MG/10 ML UDCUP PO SCH ×4 (08:51→21:49)
[2020-07-26] MEDS: POTASSIUM CHLORIDE 20 MEQ TABLET PO SCH ×2 (08:52→21:49)
[2020-07-26] MEDS: THIAMINE 100 MG TABLET PO SCH (08:52)
[2020-07-26] MEDS: methylPREDNISolone SOD SUC 40 MG/1 ML VIAL IV SCH (08:52)
[2020-07-26] MEDS: FOLIC ACID 1 MG TABLET PO SCH (08:52)
[2020-07-26] MEDS: ACETAMINOPHEN 325 MG TABLET PO PRN ×2 (08:55→21:49)
[2020-07-26] MEDS: POLYETHYLENE GLYCOL POWDER 17 GM PACK PO SCH (10:09)
[2020-07-26] MEDS: ZALEPLON 5 MG CAPSULE PO PRN (21:49)
[2020-07-27] MEDS: ARFORMOTEROL 15 MCG/2 ML NEB RESP TX SCH ×2 (07:09→19:14)
[2020-07-27] MEDS: BUDESONIDE 0.5 MG/2 ML NEB RESP TX SCH ×2 (07:09→19:14)
[2020-07-27] MEDS: POTASSIUM CHLORIDE 20 MEQ TABLET PO SCH ×2 (07:59→21:57)
[2020-07-27] MEDS: ENOXAPARIN 40 MG/0.4 ML SYRINGE SUBCUT SCH (07:59)
[2020-07-27] MEDS: METOCLOPRAMIDE 10 MG/10 ML UDCUP PO SCH ×4 (07:59→21:57)
[2020-07-27] MEDS: MULTIVITAMIN (CENTRUM) TABLET PO SCH (07:59)
[2020-07-27] MEDS: methylPREDNISolone SOD SUC 40 MG/1 ML VIAL IV SCH (08:00)
[2020-07-27] MEDS: FOLIC ACID 1 MG TABLET PO SCH (08:00)
[2020-07-27] MEDS: POLYETHYLENE GLYCOL POWDER 17 GM PACK PO SCH (08:00)
[2020-07-27] MEDS: THIAMINE 100 MG TABLET PO SCH (08:00)
[2020-07-27] MEDS: FUROSEMIDE 40 MG TABLET PO SCH (08:00)
[2020-07-27] MEDS: ACETAMINOPHEN 325 MG TABLET PO PRN ×2 (10:00→16:31)
[2020-07-27] MEDS: METOPROLOL TARTRATE 50 MG TABLET PER TUBE SCH ×2 (10:01→21:57)
[2020-07-27] MEDS: cefTRIAXone 2,000 MG in SYRINGE 1 EACH IV SCH (16:32)
[2020-07-27] MEDS: ZALEPLON 5 MG CAPSULE PO PRN (21:56)
[2020-07-28 04:50] LABS: Basophils % 0.1 % (0.0-0.8); Eosinophils # 0.1 10*3/uL (0.0-0.87); Eosinophils % 0.5 % (0.00-10.9); Hematocrit 32.6 VOL% (42.0-52.0); Hemoglobin 10.2 GM/DL (14.0-18.0); Immature Granulocytes % 11.7 %; Immature Granulocytes Absolute 2.43 #; Lymphocytes # 2.8 10*3/uL (1.4-4.0); Lymphocytes % 13.6 % (21.2-54.2); Mean Corpuscular HGB Conc 31.3 GM/DL (32-36); Mean Corpuscular Volume 91.6 FL (87-102); Mean Platelet Volume 9.1 FL (9.6-12.0); Monocytes % 4.6 % (1.7-12.7); Neutrophils % 69.5 % (38.7-73.9); Platelet Count 502 T/CUMM (130-400); Red Blood Count 3.56 MC/CUMM (3.8-5.5); Red Cell Distribution Width 15.5 % (9.3-17.3); White Blood Count 20.8 T/CUMM (4-12)
[2020-07-28 05:02] LABS: Band Neutrophils 5 % (0-10); Eosinophils 1 % (0-10); Lymphocytes 14 % (20-55); Metamyelocytes 1 %; Myelocytes 4 %; Segmented Neutrophils 71 % (50-85); Total Cells Counted 100
[2020-07-28 05:03] LABS: Anisocytosis 1+; Atypical Lymphocytes Few; Hypochromasia 1+; Microcytosis 1+; Platelet Estimate Increased
[2020-07-28 05:05] LABS: Calcium 9.2 MG/DL (8.5-10.1); Osmolality,Calculated 263.5 MOS/KG (273-304)
[2020-07-28] MEDS: BUDESONIDE 0.5 MG/2 ML NEB RESP TX SCH ×2 (07:12→19:54)
[2020-07-28] MEDS: ARFORMOTEROL 15 MCG/2 ML NEB RESP TX SCH ×2 (07:12→19:54)
[2020-07-28] MEDS: ENOXAPARIN 40 MG/0.4 ML SYRINGE SUBCUT SCH (08:04)
[2020-07-28] MEDS: METOPROLOL TARTRATE 50 MG TABLET PER TUBE SCH ×2 (08:05→22:10)
[2020-07-28] MEDS: FUROSEMIDE 40 MG TABLET PO SCH (08:05)
[2020-07-28] MEDS: FOLIC ACID 1 MG TABLET PO SCH (08:05)
[2020-07-28] MEDS: METOCLOPRAMIDE 10 MG/10 ML UDCUP PO SCH ×4 (08:05→22:10)
[2020-07-28] MEDS: methylPREDNISolone SOD SUC 40 MG/1 ML VIAL IV SCH (08:05)
[2020-07-28] MEDS: POTASSIUM CHLORIDE 20 MEQ TABLET PO SCH ×2 (08:05→22:10)
[2020-07-28] MEDS: MULTIVITAMIN (CENTRUM) TABLET PO SCH (08:05)
[2020-07-28] MEDS: THIAMINE 100 MG TABLET PO SCH (08:06)
[2020-07-28] MEDS: POLYETHYLENE GLYCOL POWDER 17 GM PACK PO SCH (08:06)
[2020-07-28] MEDS: ACETAMINOPHEN 325 MG TABLET PO PRN (09:42)
[2020-07-28] MEDS: cefTRIAXone 2,000 MG in SYRINGE 1 EACH IV SCH (16:47)
[2020-07-28] MEDS: ZALEPLON 5 MG CAPSULE PO PRN (22:10)
[2020-07-29] MEDS: ARFORMOTEROL 15 MCG/2 ML NEB RESP TX SCH ×2 (07:30→19:10)
[2020-07-29] MEDS: BUDESONIDE 0.5 MG/2 ML NEB RESP TX SCH ×2 (07:30→19:10)
[2020-07-29] MEDS: methylPREDNISolone SOD SUC 40 MG/1 ML VIAL IV SCH (08:33)
[2020-07-29] MEDS: METOPROLOL TARTRATE 50 MG TABLET PER TUBE SCH ×2 (08:34→21:53)
[2020-07-29] MEDS: MULTIVITAMIN (CENTRUM) TABLET PO SCH (08:34)
[2020-07-29] MEDS: THIAMINE 100 MG TABLET PO SCH (08:34)
[2020-07-29] MEDS: ENOXAPARIN 40 MG/0.4 ML SYRINGE SUBCUT SCH (08:34)
[2020-07-29] MEDS: FUROSEMIDE 40 MG TABLET PO SCH (08:34)
[2020-07-29] MEDS: METOCLOPRAMIDE 10 MG/10 ML UDCUP PO SCH ×4 (08:34→21:53)
[2020-07-29] MEDS: POTASSIUM CHLORIDE 20 MEQ TABLET PO SCH ×2 (08:34→21:53)
[2020-07-29] MEDS: FOLIC ACID 1 MG TABLET PO SCH (08:34)
[2020-07-29] MEDS: POLYETHYLENE GLYCOL POWDER 17 GM PACK PO SCH (08:35)
[2020-07-29] MEDS ORDERED: MAGNESIUM SULF RIDER 4 GM in PREMIX 1 EACH IV ONE (11:00)
[2020-07-29] MEDS: cefTRIAXone 2,000 MG in SYRINGE 1 EACH IV SCH (21:53)
[2020-07-29] MEDS: ZALEPLON 5 MG CAPSULE PO PRN (21:57)
[2020-07-30] MEDS: diphenhydrAMINE CAP 25 MG CAPSULE PO PRN ×2 (00:45→21:05)
[2020-07-30 05:52] LABS: Basophils % 0.1 % (0.0-0.8); Eosinophils % 10.2 % (0.00-10.9); Hematocrit 31.4 VOL% (42.0-52.0); Immature Granulocytes % 15.5 %; Immature Granulocytes Absolute 3.06 #; Lymphocytes # 2.4 10*3/uL (1.4-4.0); Lymphocytes % 12.1 % (21.2-54.2); Mean Corpuscular HGB Conc 31.8 GM/DL (32-36); Monocytes % 5.5 % (1.7-12.7); NRBC # 0.04 10*3/uL; Neutrophils % 56.6 % (38.7-73.9); Platelet Count 526 T/CUMM (130-400); Red Blood Count 3.45 MC/CUMM (3.8-5.5); Red Cell Distribution Width 15.9 % (9.3-17.3); White Blood Count 19.7 T/CUMM (4-12)
[2020-07-30 06:17] LABS: Band Neutrophils 2 % (0-10); Eosinophils 13 % (0-10); Hypochromasia 1+; Lymphocytes 13 % (20-55); Microcytosis 1+; Platelet Estimate Adequate; Segmented Neutrophils 65 % (50-85); Total Cells Counted 100
[2020-07-30 06:19] LABS: Osmolality,Calculated 268.4 MOS/KG (273-304)
[2020-07-30] MEDS: METOCLOPRAMIDE 10 MG/10 ML UDCUP PO SCH ×4 (07:49→21:05)
[2020-07-30] MEDS: ACETAMINOPHEN 325 MG TABLET PO PRN ×2 (07:50→21:04)
[2020-07-30] MEDS: FOLIC ACID 1 MG TABLET PO SCH (08:02)
[2020-07-30] MEDS: MULTIVITAMIN (CENTRUM) TABLET PO SCH (08:02)
[2020-07-30] MEDS: ENOXAPARIN 40 MG/0.4 ML SYRINGE SUBCUT SCH (08:03)
[2020-07-30] MEDS: methylPREDNISolone SOD SUC 40 MG/1 ML VIAL IV SCH (08:03)
[2020-07-30] MEDS: FUROSEMIDE 40 MG TABLET PO SCH (08:03)
[2020-07-30] MEDS: THIAMINE 100 MG TABLET PO SCH (08:03)
[2020-07-30] MEDS: POLYETHYLENE GLYCOL POWDER 17 GM PACK PO SCH (08:03)
[2020-07-30] MEDS: POTASSIUM CHLORIDE 20 MEQ TABLET PO SCH ×2 (08:03→21:05)
[2020-07-30] MEDS: METOPROLOL TARTRATE 50 MG TABLET PER TUBE SCH ×2 (08:03→21:05)
[2020-07-30] MEDS: ARFORMOTEROL 15 MCG/2 ML NEB RESP TX SCH ×2 (10:10→19:30)
[2020-07-30] MEDS: BUDESONIDE 0.5 MG/2 ML NEB RESP TX SCH ×2 (10:10→19:30)
[2020-07-30] MEDS: cefTRIAXone 2,000 MG in SYRINGE 1 EACH IV SCH (21:04)
[2020-07-30] MEDS: ZALEPLON 5 MG CAPSULE PO PRN (21:05)
[2020-07-31 04:52] LABS: Basophils % 0.1 % (0.0-0.8); Eosinophils # 1.7 10*3/uL (0.0-0.87); Eosinophils % 9.3 % (0.00-10.9); Hematocrit 30.1 VOL% (42.0-52.0); Hemoglobin 9.5 GM/DL (14.0-18.0); Immature Granulocytes % 22.3 %; Immature Granulocytes Absolute 4.15 #; Lymphocytes # 2.6 10*3/uL (1.4-4.0); Lymphocytes % 14.2 % (21.2-54.2); Mean Corpuscular HGB Conc 31.6 GM/DL (32-36); Mean Corpuscular Volume 90.9 FL (87-102); Mean Platelet Volume 8.8 FL (9.6-12.0); Monocytes % 6.9 % (1.7-12.7); NRBC # 0.03 10*3/uL; Neutrophils % 47.2 % (38.7-73.9); Platelet Count 515 T/CUMM (130-400); Red Blood Count 3.31 MC/CUMM (3.8-5.5); Red Cell Distribution Width 15.8 % (9.3-17.3); White Blood Count 18.6 T/CUMM (4-12)
[2020-07-31 05:41] LABS: Band Neutrophils 3 % (0-10); Eosinophils 7 % (0-10); Lymphocytes 15 % (20-55); Nucleated Red Blood Cells 2 (0-5); Total Cells Counted 100
[2020-07-31 05:42] LABS: Anisocytosis 1+; Macrocytosis 1+; Metamyelocytes 7 %; Myelocytes 2 %; Platelet Estimate Increased; Polychromasia Few; Segmented Neutrophils 60 % (50-85)
[2020-07-31] MEDS: BUDESONIDE 0.5 MG/2 ML NEB RESP TX SCH ×2 (07:29→20:10)
[2020-07-31] MEDS: ARFORMOTEROL 15 MCG/2 ML NEB RESP TX SCH ×2 (07:29→20:10)
[2020-07-31] MEDS: methylPREDNISolone SOD SUC 40 MG/1 ML VIAL IV SCH (09:27)
[2020-07-31] MEDS: FUROSEMIDE 40 MG TABLET PO SCH (09:28)
[2020-07-31] MEDS: MULTIVITAMIN (CENTRUM) TABLET PO SCH (09:28)
[2020-07-31] MEDS: METOPROLOL TARTRATE 50 MG TABLET PER TUBE SCH ×2 (09:28→22:11)
[2020-07-31] MEDS: THIAMINE 100 MG TABLET PO SCH (09:28)
[2020-07-31] MEDS: METOCLOPRAMIDE 10 MG/10 ML UDCUP PO SCH ×4 (09:28→22:12)
[2020-07-31] MEDS: FOLIC ACID 1 MG TABLET PO SCH (09:28)
[2020-07-31] MEDS: POTASSIUM CHLORIDE 20 MEQ TABLET PO SCH ×2 (09:28→22:12)
[2020-07-31] MEDS: ENOXAPARIN 40 MG/0.4 ML SYRINGE SUBCUT SCH (09:29)
[2020-07-31] MEDS: POLYETHYLENE GLYCOL POWDER 17 GM PACK PO SCH (09:29)
[2020-07-31] MEDS: ACETAMINOPHEN 325 MG TABLET PO PRN (22:09)
[2020-07-31] MEDS: ZALEPLON 5 MG CAPSULE PO PRN (22:11)
[2020-08-01 04:15] LABS: Basophils % 0.1 % (0.0-0.8); Eosinophils # 2.1 10*3/uL (0.0-0.87); Eosinophils % 7.6 % (0.00-10.9); Hematocrit 30.6 VOL% (42.0-52.0); Hemoglobin 9.7 GM/DL (14.0-18.0); Immature Granulocytes % 15.1 %; Lymphocytes # 3.3 10*3/uL (1.4-4.0); Lymphocytes % 11.9 % (21.2-54.2); Mean Corpuscular HGB Conc 31.7 GM/DL (32-36); Mean Corpuscular Volume 89.7 FL (87-102); Mean Platelet Volume 8.8 FL (9.6-12.0); Monocytes % 4.7 % (1.7-12.7); NRBC # 0.06 10*3/uL; Neutrophils % 60.6 % (38.7-73.9); Platelet Count 521 T/CUMM (130-400); Red Blood Count 3.41 MC/CUMM (3.8-5.5); Red Cell Distribution Width 16.3 % (9.3-17.3); White Blood Count 27.9 T/CUMM (4-12)
[2020-08-01 04:31] LABS: Calcium 8.8 MG/DL (8.5-10.1); Osmolality,Calculated 269.2 MOS/KG (273-304)
[2020-08-01 04:38] LABS: Band Neutrophils 1 % (0-10); Eosinophils 7 % (0-10); Hypochromasia 1+; Lymphocytes 11 % (20-55); Microcytosis 1+; Nucleated Red Blood Cells 1 (0-5); Platelet Estimate Adequate; Segmented Neutrophils 76 % (50-85); Total Cells Counted 100
[2020-08-01] MEDS: BUDESONIDE 0.5 MG/2 ML NEB RESP TX SCH ×2 (07:16→19:20)
[2020-08-01] MEDS: ARFORMOTEROL 15 MCG/2 ML NEB RESP TX SCH ×2 (07:16→19:20)
[2020-08-01] MEDS: METOCLOPRAMIDE 10 MG/10 ML UDCUP PO SCH ×4 (08:35→22:14)
[2020-08-01] MEDS: methylPREDNISolone SOD SUC 40 MG/1 ML VIAL IV SCH (08:35)
[2020-08-01] MEDS: POLYETHYLENE GLYCOL POWDER 17 GM PACK PO SCH (08:36)
[2020-08-01] MEDS: ENOXAPARIN 40 MG/0.4 ML SYRINGE SUBCUT SCH (08:36)
[2020-08-01] MEDS: METOPROLOL TARTRATE 50 MG TABLET PER TUBE SCH ×2 (08:36→22:17)
[2020-08-01] MEDS: FUROSEMIDE 40 MG TABLET PO SCH (08:36)
[2020-08-01] MEDS: THIAMINE 100 MG TABLET PO SCH (08:36)
[2020-08-01] MEDS: FOLIC ACID 1 MG TABLET PO SCH (08:36)
[2020-08-01] MEDS: MULTIVITAMIN (CENTRUM) TABLET PO SCH (08:36)
[2020-08-01] MEDS: POTASSIUM CHLORIDE 20 MEQ TABLET PO SCH ×2 (08:38→22:13)
[2020-08-01] MEDS: ACETAMINOPHEN 325 MG TABLET PO PRN (14:35)
[2020-08-02 05:57] LABS: Basophils % 0.1 % (0.0-0.8); Eosinophils # 1.3 10*3/uL (0.0-0.87); Eosinophils % 5.5 % (0.00-10.9); Hematocrit 29.5 VOL% (42.0-52.0); Hemoglobin 9.4 GM/DL (14.0-18.0); Immature Granulocytes % 17.3 %; Immature Granulocytes Absolute 3.97 #; Lymphocytes # 3.9 10*3/uL (1.4-4.0); Lymphocytes % 17.2 % (21.2-54.2); Mean Corpuscular HGB Conc 31.9 GM/DL (32-36); Mean Corpuscular Volume 91.3 FL (87-102); Mean Platelet Volume 9.2 FL (9.6-12.0); Monocytes % 5.3 % (1.7-12.7); NRBC # 0.02 10*3/uL; Neutrophils % 54.6 % (38.7-73.9); Platelet Count 506 T/CUMM (130-400); Red Blood Count 3.23 MC/CUMM (3.8-5.5); White Blood Count 22.9 T/CUMM (4-12)
[2020-08-02 06:19] LABS: Calcium 8.9 MG/DL (8.5-10.1); Osmolality,Calculated 267.2 MOS/KG (273-304)
[2020-08-02 06:29] LABS: Eosinophils 6 % (0-10); Hypochromasia 1+; Lymphocytes 18 % (20-55); Microcytosis Slight; Nucleated Red Blood Cells 1 (0-5); Platelet Estimate Adequate; Segmented Neutrophils 68 % (50-85); Total Cells Counted 100
[2020-08-02] MEDS: BUDESONIDE 0.5 MG/2 ML NEB RESP TX SCH ×2 (07:40→19:14)
[2020-08-02] MEDS: ARFORMOTEROL 15 MCG/2 ML NEB RESP TX SCH ×2 (07:40→19:14)
[2020-08-02] MEDS: methylPREDNISolone SOD SUC 40 MG/1 ML VIAL IV SCH (08:34)
[2020-08-02] MEDS: POTASSIUM CHLORIDE 20 MEQ TABLET PO SCH ×2 (08:35→21:27)
[2020-08-02] MEDS: METOCLOPRAMIDE 10 MG/10 ML UDCUP PO SCH ×4 (08:35→21:26)
[2020-08-02] MEDS: FOLIC ACID 1 MG TABLET PO SCH (08:36)
[2020-08-02] MEDS: ENOXAPARIN 40 MG/0.4 ML SYRINGE SUBCUT SCH (08:36)
[2020-08-02] MEDS: THIAMINE 100 MG TABLET PO SCH (08:36)
[2020-08-02] MEDS: METOPROLOL TARTRATE 50 MG TABLET PER TUBE SCH ×2 (08:36→21:27)
[2020-08-02] MEDS: MULTIVITAMIN (CENTRUM) TABLET PO SCH (08:36)
[2020-08-02] MEDS: FUROSEMIDE 40 MG TABLET PO SCH (08:36)
[2020-08-02] MEDS: POLYETHYLENE GLYCOL POWDER 17 GM PACK PO SCH (08:37)
[2020-08-02] MEDS: ACETAMINOPHEN 325 MG TABLET PO PRN (21:27)
[2020-08-02] MEDS: ZALEPLON 5 MG CAPSULE PO PRN (21:27)
[2020-08-03 05:47] LABS: Basophils % 0.1 % (0.0-0.8); Eosinophils # 1.2 10*3/uL (0.0-0.87); Eosinophils % 6.2 % (0.00-10.9); Hematocrit 31.8 VOL% (42.0-52.0); Hemoglobin 9.7 GM/DL (14.0-18.0); Immature Granulocytes % 15.7 %; Immature Granulocytes Absolute 2.93 #; Lymphocytes # 3.7 10*3/uL (1.4-4.0); Lymphocytes % 19.7 % (21.2-54.2); Mean Corpuscular HGB Conc 30.5 GM/DL (32-36); Mean Corpuscular Volume 91.6 FL (87-102); Mean Platelet Volume 8.9 FL (9.6-12.0); Neutrophils % 51.3 % (38.7-73.9); Platelet Count 583 T/CUMM (130-400); Red Blood Count 3.47 MC/CUMM (3.8-5.5); Red Cell Distribution Width 15.9 % (9.3-17.3); White Blood Count 18.7 T/CUMM (4-12)
[2020-08-03 06:04] LABS: Calcium 9.3 MG/DL (8.5-10.1)
[2020-08-03 06:37] LABS: Band Neutrophils 14 % (0-10); Eosinophils 5 % (0-10); Lymphocytes 26 % (20-55); Metamyelocytes 2 %; Myelocytes 2 %; Platelet Estimate Increased; Segmented Neutrophils 43 % (50-85); Total Cells Counted 100
[2020-08-03 06:38] LABS: Anisocytosis 2+; Atypical Lymphocytes Few; Target Cells Few
[2020-08-03] MEDS: ARFORMOTEROL 15 MCG/2 ML NEB RESP TX SCH ×2 (07:45→19:13)
[2020-08-03] MEDS: BUDESONIDE 0.5 MG/2 ML NEB RESP TX SCH ×2 (07:45→19:13)
[2020-08-03] MEDS: methylPREDNISolone SOD SUC 40 MG/1 ML VIAL IV SCH (09:17)
[2020-08-03] MEDS: ENOXAPARIN 40 MG/0.4 ML SYRINGE SUBCUT SCH (09:17)
[2020-08-03] MEDS: POLYETHYLENE GLYCOL POWDER 17 GM PACK PO SCH (09:18)
[2020-08-03] MEDS: THIAMINE 100 MG TABLET PO SCH (09:18)
[2020-08-03] MEDS: FOLIC ACID 1 MG TABLET PO SCH (09:18)
[2020-08-03] MEDS: FUROSEMIDE 40 MG TABLET PO SCH (09:18)
[2020-08-03] MEDS: MULTIVITAMIN (CENTRUM) TABLET PO SCH (09:18)
[2020-08-03] MEDS: METOCLOPRAMIDE 10 MG/10 ML UDCUP PO SCH ×4 (09:18→20:38)
[2020-08-03] MEDS: POTASSIUM CHLORIDE 20 MEQ TABLET PO SCH ×2 (09:18→20:38)
[2020-08-03] MEDS: ACETAMINOPHEN 325 MG TABLET PO PRN ×2 (09:20→16:52)
[2020-08-03] MEDS: METOPROLOL TARTRATE 50 MG TABLET PER TUBE SCH ×2 (09:20→20:41)
[2020-08-03] MEDS: diphenhydrAMINE CAP 25 MG CAPSULE PO PRN (10:58)
[2020-08-03] MEDS: HydrOXYzine PAMOATE 25 MG CAPSULE PO PRN (14:56)
[2020-08-03] MEDS ORDERED: methylPREDNISolone SOD SUC 40 MG/1 ML VIAL IV ONE (19:57)
[2020-08-03] MEDS: diphenhydrAMINE 50 MG/1 ML VIAL IV PRN (20:39)
[2020-08-03] MEDS: FAMOTIDINE 20 MG/2 ML VIAL IV SCH (20:40)
[2020-08-03] MEDS: MEROPENEM 500 MG in SODIUM CHLORIDE 0.9% 100 ML IV SCH (20:45)
[2020-08-03] MEDS: VANCOMYCIN INJ 1,000 MG in SODIUM CHLORIDE 0.9% 250 ML IV SCH (21:49)
[2020-08-04] MEDS: MEROPENEM 500 MG in SODIUM CHLORIDE 0.9% 100 ML IV SCH ×4 (02:52→20:19)
[2020-08-04] MEDS: diphenhydrAMINE 50 MG/1 ML VIAL IV PRN ×2 (03:31→21:06)
[2020-08-04 06:59] LABS: Basophils % 0.1 % (0.0-0.8); Eosinophils # 0.6 10*3/uL (0.0-0.87); Eosinophils % 1.2 % (0.00-10.9); Hematocrit 31.2 VOL% (42.0-52.0); Hemoglobin 10.1 GM/DL (14.0-18.0); Immature Granulocytes % 6.1 %; Immature Granulocytes Absolute 3.01 #; Lymphocytes # 2.8 10*3/uL (1.4-4.0); Lymphocytes % 5.7 % (21.2-54.2); Mean Corpuscular HGB Conc 32.4 GM/DL (32-36); Mean Corpuscular Volume 89.1 FL (87-102); Mean Platelet Volume 8.5 FL (9.6-12.0); Monocytes % 1.5 % (1.7-12.7); Neutrophils % 85.4 % (38.7-73.9); Platelet Count 569 T/CUMM (130-400); Red Cell Distribution Width 16.2 % (9.3-17.3)
[2020-08-04 07:01] LABS: White Blood Count 49.2 T/CUMM (4-12)
[2020-08-04] MEDS: ARFORMOTEROL 15 MCG/2 ML NEB RESP TX SCH ×2 (07:26→19:30)
[2020-08-04] MEDS: BUDESONIDE 0.5 MG/2 ML NEB RESP TX SCH ×2 (07:26→19:30)
[2020-08-04 07:49] LABS: Anisocytosis 1+; Band Neutrophils 19 % (0-10); Eosinophils 2 % (0-10); Lymphocytes 5 % (20-55); Metamyelocytes 3 %; Platelet Estimate Increased; Segmented Neutrophils 71 % (50-85); Smudge Cells Few; Total Cells Counted 100
[2020-08-04] MEDS: THIAMINE 100 MG TABLET PO SCH (09:16)
[2020-08-04] MEDS: MULTIVITAMIN (CENTRUM) TABLET PO SCH (09:16)
[2020-08-04] MEDS: POTASSIUM CHLORIDE 20 MEQ TABLET PO SCH ×2 (09:16→21:04)
[2020-08-04] MEDS: ENOXAPARIN 40 MG/0.4 ML SYRINGE SUBCUT SCH (09:16)
[2020-08-04] MEDS: predniSONE 10 MG TABLET PO SCH (09:16)
[2020-08-04] MEDS: METOPROLOL TARTRATE 50 MG TABLET PER TUBE SCH ×2 (09:16→21:04)
[2020-08-04] MEDS: FAMOTIDINE 20 MG/2 ML VIAL IV SCH ×2 (09:16→21:04)
[2020-08-04] MEDS: METOCLOPRAMIDE 10 MG/10 ML UDCUP PO SCH ×4 (09:17→21:04)
[2020-08-04] MEDS: FOLIC ACID 1 MG TABLET PO SCH (09:17)
[2020-08-04] MEDS: FUROSEMIDE 40 MG TABLET PO SCH (09:17)
[2020-08-04] MEDS: POLYETHYLENE GLYCOL POWDER 17 GM PACK PO SCH (09:22)
[2020-08-04] MEDS: VANCOMYCIN INJ 1,000 MG in SODIUM CHLORIDE 0.9% 250 ML IV SCH ×2 (14:34→21:04)
[2020-08-05] MEDS: MEROPENEM 500 MG in SODIUM CHLORIDE 0.9% 100 ML IV SCH ×4 (01:17→20:48)
[2020-08-05 06:07] LABS: Basophils % 0.1 % (0.0-0.8); Eosinophils # 2.3 10*3/uL (0.0-0.87); Eosinophils % 8.5 % (0.00-10.9); Hematocrit 30.1 VOL% (42.0-52.0); Hemoglobin 9.4 GM/DL (14.0-18.0); Immature Granulocytes % 14.3 %; Immature Granulocytes Absolute 3.81 #; Lymphocytes # 3.2 10*3/uL (1.4-4.0); Lymphocytes % 12.1 % (21.2-54.2); Mean Corpuscular HGB Conc 31.2 GM/DL (32-36); Mean Corpuscular Volume 92.3 FL (87-102); Mean Platelet Volume 9.1 FL (9.6-12.0); Monocytes % 4.9 % (1.7-12.7); NRBC # 0.05 10*3/uL; Neutrophils % 60.1 % (38.7-73.9); Platelet Count 548 T/CUMM (130-400); Red Blood Count 3.26 MC/CUMM (3.8-5.5); Red Cell Distribution Width 16.1 % (9.3-17.3); White Blood Count 26.7 T/CUMM (4-12)
[2020-08-05 06:21] LABS: Calcium 8.7 MG/DL (8.5-10.1); Osmolality,Calculated 274.5 MOS/KG (273-304)
[2020-08-05] MEDS: METOCLOPRAMIDE 10 MG/10 ML UDCUP PO SCH ×4 (07:01→20:49)
[2020-08-05 07:02] LABS: Anisocytosis 1+; Atypical Lymphocytes Few; Band Neutrophils 17 % (0-10); Eosinophils 6 % (0-10); Lymphocytes 16 % (20-55); Macrocytosis 1+; Metamyelocytes 2 %; Myelocytes 3 %; Platelet Estimate Increased; Segmented Neutrophils 52 % (50-85); Smudge Cells 1+; Total Cells Counted 100
[2020-08-05 07:03] LABS: Polychromasia Slight
[2020-08-05] MEDS: ARFORMOTEROL 15 MCG/2 ML NEB RESP TX SCH ×2 (07:45→19:25)
[2020-08-05] MEDS: BUDESONIDE 0.5 MG/2 ML NEB RESP TX SCH ×2 (07:45→19:25)
[2020-08-05] MEDS: METOPROLOL TARTRATE 50 MG TABLET PER TUBE SCH ×2 (09:38→20:49)
[2020-08-05] MEDS: FAMOTIDINE 20 MG/2 ML VIAL IV SCH ×2 (09:44→20:47)
[2020-08-05] MEDS: FOLIC ACID 1 MG TABLET PO SCH (09:46)
[2020-08-05] MEDS: MULTIVITAMIN (CENTRUM) TABLET PO SCH (09:46)
[2020-08-05] MEDS: POTASSIUM CHLORIDE 20 MEQ TABLET PO SCH ×2 (09:46→20:49)
[2020-08-05] MEDS: POLYETHYLENE GLYCOL POWDER 17 GM PACK PO SCH (09:47)
[2020-08-05] MEDS: FUROSEMIDE 40 MG TABLET PO SCH (09:47)
[2020-08-05] MEDS: THIAMINE 100 MG TABLET PO SCH (09:47)
[2020-08-05] MEDS: predniSONE 10 MG TABLET PO SCH (09:47)
[2020-08-05] MEDS ORDERED: HEPARIN/NACL 0.9% 2 UNITS/ML 500 ML IV ONE (10:21)
[2020-08-05] MEDS: VANCOMYCIN INJ 1,000 MG in SODIUM CHLORIDE 0.9% 250 ML IV SCH ×2 (10:21→21:40)
[2020-08-05] MEDS ORDERED: SODIUM CHLORIDE 0.9% 1,000 ML IV ONE (10:34)
[2020-08-05] MEDS ORDERED: ONDANSETRON 4 MG/2 ML VIAL ONE (11:09)
[2020-08-05] MEDS ORDERED: propofoL 200 MG/20 ML VIAL IV ONE (11:09)
[2020-08-05] MEDS ORDERED: LIDOCAINE 2% 5 ML VIAL ONE (11:09)
[2020-08-05] MEDS ORDERED: DEXAMETHASONE 4 MG/1 ML VIAL ONE (11:09)
[2020-08-05] MEDS ORDERED: GLYCOPYRROLATE 0.4 MG/2 ML VIAL ONE ×3 (11:09→14:38)
[2020-08-05] MEDS ORDERED: ROCURONIUM 50 MG/5 ML VIAL IV ONE (11:09)
[2020-08-05] MEDS ORDERED: MIDAZOLAM 2 MG/2 ML VIAL ONE ×2 (11:13)
[2020-08-05] MEDS ORDERED: fentaNYL 100 MCG/2 ML VIAL ONE (11:14)
[2020-08-05] MEDS ORDERED: VANCOMYCIN 500 MG VIAL ONE (11:28)
[2020-08-05] MEDS ORDERED: PHENYLEPHRINE 1 MG/10 ML SYRINGE IV ONE (12:53)
[2020-08-05] MEDS ORDERED: ALBUMIN 5% 12.5 GM/250 ML VIAL IV ONE (13:26)
[2020-08-05] MEDS ORDERED: PHENYLEPHRINE DRIP 20 MG/250 ML PREMIX IV ONE (13:27)
[2020-08-05] MEDS ORDERED: diphenhydrAMINE 50 MG/1 ML VIAL IV PRN (13:45)
[2020-08-05] MEDS ORDERED: ONDANSETRON 4 MG/2 ML VIAL IV PRN (13:45)
[2020-08-05] MEDS ORDERED: ROPIVACAINE 0.5% 30 ML VIAL ONE ×2 (13:52→15:20)
[2020-08-05] MEDS ORDERED: LACTATED RINGERS 1,000 ML IV SCH (14:00)
[2020-08-05] MEDS ORDERED: FENTANYL EPIDURAL SCH (14:15)
[2020-08-05] MEDS ORDERED: ROPIV 0.2% EPIDURAL SCH (14:15)
[2020-08-05] MEDS ORDERED: NEOSTIGMINE 10 MG/10 ML VIAL ONE (14:38)
[2020-08-05 14:54] LABS: Amorphous Crystals,Urine Occasional /HPF (Few); Bacteria,Urine Occasional /HPF (Few); Bilirubin,Urine Negative (Negative); Blood, Urine Negative (Negative); Glucose,Urine (UA) Negative (Negative); Hyaline Casts,Urine 3 /LPF (0-3); Ketones,Urine Negative (Negative); Nitrite,Urine Negative (Negative); Protein,Urine Negative; RBC,Urine 1 /HPF (0-4); Urine Appearance CLEAR (Clear); Urine Color Yellow (Yellow); Urine Specific Gravity 1.008 (1.001-1.035); Urine Urobilinogen < 2.0 EU/DL (0.2-1.0); WBC,Urine 1 /HPF (0-6)
[2020-08-05] MEDS ORDERED: fentaNYL 250 MCG/5 ML VIAL ONE (15:20)
[2020-08-05 15:41] LABS: Hematocrit 24.6 VOL% (42.0-52.0); Hemoglobin 7.8 GM/DL (14.0-18.0)
[2020-08-05] MEDS: LACTATED RINGERS 1,000 ML IV SCH (17:26)
[2020-08-05] MEDS: ACETAMINOPHEN 325 MG TABLET PO PRN (23:59)
[2020-08-06] MEDS: MEROPENEM 500 MG in SODIUM CHLORIDE 0.9% 100 ML IV SCH ×4 (02:30→21:00)
[2020-08-06 04:38] LABS: Basophils # 0.1 10*3/uL (0.0-0.2); Basophils % 0.3 % (0.0-0.8); Eosinophils % 0.1 % (0.00-10.9); Hematocrit 28.8 VOL% (42.0-52.0); Hemoglobin 9.9 GM/DL (14.0-18.0); Immature Granulocytes % 6.2 %; Immature Granulocytes Absolute 2.27 #; Lymphocytes % 8.1 % (21.2-54.2); Mean Corpuscular HGB Conc 34.4 GM/DL (32-36); Mean Corpuscular Volume 87.3 FL (87-102); Mean Platelet Volume 8.6 FL (9.6-12.0); NRBC # 0.03 10*3/uL; Neutrophils % 81.3 % (38.7-73.9); Platelet Count 314 T/CUMM (130-400); Red Cell Distribution Width 15.6 % (9.3-17.3); White Blood Count 36.6 T/CUMM (4-12)
[2020-08-06 04:58] LABS: Band Neutrophils 1 % (0-10); Eosinophils 1 % (0-10); Lymphocytes 7 % (20-55); Platelet Estimate Adequate; Segmented Neutrophils 88 % (50-85); Total Cells Counted 100
[2020-08-06 04:59] LABS: Hypochromasia 1+; Microcytosis 1+
[2020-08-06 05:01] LABS: Calcium 8.1 MG/DL (8.5-10.1); Osmolality,Calculated 273.8 MOS/KG (273-304)
[2020-08-06] MEDS: LACTATED RINGERS 1,000 ML IV SCH (06:00)
[2020-08-06] MEDS: ARFORMOTEROL 15 MCG/2 ML NEB RESP TX SCH ×2 (08:05→20:35)
[2020-08-06] MEDS: BUDESONIDE 0.5 MG/2 ML NEB RESP TX SCH ×2 (08:05→20:35)
[2020-08-06] MEDS: POLYETHYLENE GLYCOL POWDER 17 GM PACK PO SCH (08:20)
[2020-08-06] MEDS: predniSONE 10 MG TABLET PO SCH (08:32)
[2020-08-06] MEDS: METOCLOPRAMIDE 10 MG/10 ML UDCUP PO SCH ×3 (08:32→16:31)
[2020-08-06] MEDS: MULTIVITAMIN (CENTRUM) TABLET PO SCH (08:32)
[2020-08-06] MEDS: METOPROLOL TARTRATE 50 MG TABLET PER TUBE SCH ×2 (08:32→21:02)
[2020-08-06] MEDS: FOLIC ACID 1 MG TABLET PO SCH (08:32)
[2020-08-06] MEDS: THIAMINE 100 MG TABLET PO SCH (08:32)
[2020-08-06] MEDS: POTASSIUM CHLORIDE 20 MEQ TABLET PO SCH ×2 (08:32→21:01)
[2020-08-06] MEDS: FUROSEMIDE 40 MG TABLET PO SCH (08:33)
[2020-08-06] MEDS: VANCOMYCIN INJ 1,000 MG in SODIUM CHLORIDE 0.9% 250 ML IV SCH ×2 (08:33→21:01)
[2020-08-06] MEDS: FAMOTIDINE 20 MG/2 ML VIAL IV SCH ×2 (08:34→21:01)
[2020-08-06] MEDS ORDERED: SODIUM CHLORIDE 0.9% 500 ML IV ONE (08:41)
[2020-08-06] MEDS ORDERED: fentaNYL 2 MCG/ROPIV 0.2% EPID 100 ML EPIDURAL SCH (09:30)
[2020-08-06] MEDS: fentaNYL 2 MCG/ROPIV 0.2% EPID 100 ML EPIDURAL SCH (20:12)
[2020-08-06] MEDS: diphenhydrAMINE 50 MG/1 ML VIAL IV PRN (21:56)
[2020-08-07] MEDS: METOCLOPRAMIDE 10 MG/10 ML UDCUP PO SCH ×5 (02:21→20:57)
[2020-08-07] MEDS: MEROPENEM 500 MG in SODIUM CHLORIDE 0.9% 100 ML IV SCH ×2 (02:21→08:55)
[2020-08-07] MEDS: fentaNYL 2 MCG/ROPIV 0.2% EPID 100 ML EPIDURAL SCH ×3 (05:13→21:00)
[2020-08-07 05:56] LABS: Basophils # 0.1 10*3/uL (0.0-0.2); Basophils % 0.4 % (0.0-0.8); Eosinophils # 0.7 10*3/uL (0.0-0.87); Hematocrit 27.2 VOL% (42.0-52.0); Hemoglobin 8.9 GM/DL (14.0-18.0); Immature Granulocytes % 7.2 %; Immature Granulocytes Absolute 1.79 #; Lymphocytes # 2.7 10*3/uL (1.4-4.0); Lymphocytes % 10.9 % (21.2-54.2); Mean Corpuscular HGB Conc 32.7 GM/DL (32-36); Mean Corpuscular Volume 90.1 FL (87-102); Mean Platelet Volume 8.9 FL (9.6-12.0); Monocytes % 6.9 % (1.7-12.7); Neutrophils % 71.6 % (38.7-73.9); Platelet Count 292 T/CUMM (130-400); Red Blood Count 3.02 MC/CUMM (3.8-5.5); Red Cell Distribution Width 16.5 % (9.3-17.3)
[2020-08-07 06:20] LABS: Calcium 8.2 MG/DL (8.5-10.1); Osmolality,Calculated 271.7 MOS/KG (273-304)
[2020-08-07 06:34] LABS: Eosinophils 4 % (0-10); Hypochromasia 1+; Lymphocytes 8 % (20-55); Microcytosis 1+; Platelet Estimate Adequate; Segmented Neutrophils 83 % (50-85); Total Cells Counted 100
[2020-08-07] MEDS: ARFORMOTEROL 15 MCG/2 ML NEB RESP TX SCH ×2 (07:18→19:03)
[2020-08-07] MEDS: BUDESONIDE 0.5 MG/2 ML NEB RESP TX SCH ×2 (07:18→19:03)
[2020-08-07] MEDS: FOLIC ACID 1 MG TABLET PO SCH (08:54)
[2020-08-07] MEDS: FUROSEMIDE 40 MG TABLET PO SCH (08:54)
[2020-08-07] MEDS: POTASSIUM CHLORIDE 20 MEQ TABLET PO SCH ×2 (08:54→20:57)
[2020-08-07] MEDS: FAMOTIDINE 20 MG/2 ML VIAL IV SCH ×2 (08:54→20:59)
[2020-08-07] MEDS: MULTIVITAMIN (CENTRUM) TABLET PO SCH (08:54)
[2020-08-07] MEDS: THIAMINE 100 MG TABLET PO SCH (08:54)
[2020-08-07] MEDS: ENOXAPARIN 40 MG/0.4 ML SYRINGE SUBCUT SCH (08:55)
[2020-08-07] MEDS: METOPROLOL TARTRATE 50 MG TABLET PER TUBE SCH ×2 (08:55→20:57)
[2020-08-07] MEDS: predniSONE 10 MG TABLET PO SCH (09:45)
[2020-08-07] MEDS: POLYETHYLENE GLYCOL POWDER 17 GM PACK PO SCH (09:46)
[2020-08-07] MEDS: VANCOMYCIN INJ 1,000 MG in SODIUM CHLORIDE 0.9% 250 ML IV SCH (10:52)
[2020-08-07] MEDS: CEFEPIME 1,000 MG in SODIUM CHLORIDE 0.9% 100 ML IV SCH ×3 (12:50→23:17)
[2020-08-08] MEDS: fentaNYL 2 MCG/ROPIV 0.2% EPID 100 ML EPIDURAL SCH ×5 (03:19→23:15)
[2020-08-08 06:08] LABS: Basophils # 0.2 10*3/uL (0.0-0.2); Basophils % 0.7 % (0.0-0.8); Eosinophils # 1.1 10*3/uL (0.0-0.87); Eosinophils % 4.6 % (0.00-10.9); Hematocrit 28.4 VOL% (42.0-52.0); Hemoglobin 9.4 GM/DL (14.0-18.0); Immature Granulocytes Absolute 2.06 #; Lymphocytes # 3.7 10*3/uL (1.4-4.0); Mean Corpuscular HGB Conc 33.1 GM/DL (32-36); Mean Corpuscular Volume 89.9 FL (87-102); Neutrophils % 63.7 % (38.7-73.9); Platelet Count 328 T/CUMM (130-400); Red Blood Count 3.16 MC/CUMM (3.8-5.5); Red Cell Distribution Width 15.8 % (9.3-17.3); White Blood Count 22.9 T/CUMM (4-12)
[2020-08-08] MEDS: CEFEPIME 1,000 MG in SODIUM CHLORIDE 0.9% 100 ML IV SCH ×4 (06:20→23:32)
[2020-08-08 06:38] LABS: Calcium 8.4 MG/DL (8.5-10.1); Osmolality,Calculated 264.2 MOS/KG (273-304)
[2020-08-08 06:51] LABS: Atypical Lymphocytes Few; Band Neutrophils 14 % (0-10); Eosinophils 7 % (0-10); Lymphocytes 23 % (20-55); Metamyelocytes 4 %; Myelocytes 1 %; Platelet Estimate Normal; Segmented Neutrophils 47 % (50-85); Total Cells Counted 100
[2020-08-08 06:52] LABS: Anisocytosis 3+; Poikilocytosis Slight
[2020-08-08] MEDS: ARFORMOTEROL 15 MCG/2 ML NEB RESP TX SCH ×2 (07:48→20:35)
[2020-08-08] MEDS: BUDESONIDE 0.5 MG/2 ML NEB RESP TX SCH ×2 (07:48→20:35)
[2020-08-08] MEDS: METOCLOPRAMIDE 10 MG/10 ML UDCUP PO SCH ×4 (08:10→20:46)
[2020-08-08] MEDS: FAMOTIDINE 20 MG/2 ML VIAL IV SCH ×2 (09:22→20:50)
[2020-08-08] MEDS: predniSONE 10 MG TABLET PO SCH (09:22)
[2020-08-08] MEDS: POTASSIUM CHLORIDE 20 MEQ TABLET PO SCH ×2 (09:22→20:46)
[2020-08-08] MEDS: guaiFENesin/DM ER 600-30 MG TABLET PO PRN (09:22)
[2020-08-08] MEDS: MULTIVITAMIN (CENTRUM) TABLET PO SCH (09:22)
[2020-08-08] MEDS: FOLIC ACID 1 MG TABLET PO SCH (09:22)
[2020-08-08] MEDS: THIAMINE 100 MG TABLET PO SCH (09:22)
[2020-08-08] MEDS: FUROSEMIDE 40 MG TABLET PO SCH (09:22)
[2020-08-08] MEDS: HydrOXYzine PAMOATE 25 MG CAPSULE PO PRN (09:22)
[2020-08-08] MEDS: METOPROLOL TARTRATE 50 MG TABLET PER TUBE SCH ×2 (09:24→20:46)
[2020-08-08] MEDS: POLYETHYLENE GLYCOL POWDER 17 GM PACK PO SCH (10:45)
[2020-08-08] MEDS: POTASSIUM CHLORIDE RIDER 10 MEQ in PREMIX 1 EACH IV SCH ×4 (11:56→15:58)
[2020-08-09 05:42] LABS: Basophils # 0.2 10*3/uL (0.0-0.2); Basophils % 0.9 % (0.0-0.8); Eosinophils % 5.2 % (0.00-10.9); Hematocrit 30.7 VOL% (42.0-52.0); Immature Granulocytes % 8.9 %; Immature Granulocytes Absolute 1.75 #; Lymphocytes # 2.4 10*3/uL (1.4-4.0); Lymphocytes % 12.2 % (21.2-54.2); Mean Corpuscular HGB Conc 32.6 GM/DL (32-36); Mean Corpuscular Volume 89.8 FL (87-102); Mean Platelet Volume 8.8 FL (9.6-12.0); Monocytes % 6.6 % (1.7-12.7); Neutrophils % 66.2 % (38.7-73.9); Platelet Count 366 T/CUMM (130-400); Red Blood Count 3.42 MC/CUMM (3.8-5.5); Red Cell Distribution Width 15.2 % (9.3-17.3); White Blood Count 19.6 T/CUMM (4-12)
[2020-08-09] MEDS: CEFEPIME 1,000 MG in SODIUM CHLORIDE 0.9% 100 ML IV SCH ×3 (06:26→17:14)
[2020-08-09 06:46] LABS: Calcium 8.8 MG/DL (8.5-10.1)
[2020-08-09 06:47] LABS: Eosinophils 6 % (0-10); Lymphocytes 14 % (20-55); Myelocytes 1 %; Platelet Estimate Normal; Segmented Neutrophils 76 % (50-85); Total Cells Counted 100
[2020-08-09] MEDS: BUDESONIDE 0.5 MG/2 ML NEB RESP TX SCH ×2 (07:22→19:29)
[2020-08-09] MEDS: ARFORMOTEROL 15 MCG/2 ML NEB RESP TX SCH ×2 (07:22→19:29)
[2020-08-09] MEDS ORDERED: KETOROLAC 15 MG/1 ML VIAL IV PRN (08:13)
[2020-08-09] MEDS: fentaNYL 2 MCG/ROPIV 0.2% EPID 100 ML EPIDURAL SCH (08:21)
[2020-08-09] MEDS: METOCLOPRAMIDE 10 MG/10 ML UDCUP PO SCH ×4 (10:14→20:49)
[2020-08-09] MEDS: THIAMINE 100 MG TABLET PO SCH (10:14)
[2020-08-09] MEDS: MULTIVITAMIN (CENTRUM) TABLET PO SCH (10:15)
[2020-08-09] MEDS: POTASSIUM CHLORIDE 20 MEQ TABLET PO SCH ×2 (10:15→20:49)
[2020-08-09] MEDS: predniSONE 10 MG TABLET PO SCH (10:15)
[2020-08-09] MEDS: METOPROLOL TARTRATE 50 MG TABLET PER TUBE SCH ×2 (10:15→20:49)
[2020-08-09] MEDS: FOLIC ACID 1 MG TABLET PO SCH (10:15)
[2020-08-09] MEDS: FAMOTIDINE 20 MG/2 ML VIAL IV SCH ×2 (10:16→20:45)
[2020-08-09] MEDS: FUROSEMIDE 40 MG TABLET PO SCH (10:16)
[2020-08-09] MEDS: POLYETHYLENE GLYCOL POWDER 17 GM PACK PO SCH (10:16)
[2020-08-09] MEDS ORDERED: HYDROmorphone 2 MG/1 ML VIAL IV PRN ×2 (11:26)
[2020-08-10] MEDS: CEFEPIME 1,000 MG in SODIUM CHLORIDE 0.9% 100 ML IV SCH ×4 (00:57→17:06)
[2020-08-10 06:36] LABS: Basophils # 0.1 10*3/uL (0.0-0.2); Basophils % 0.7 % (0.0-0.8); Eosinophils # 1.2 10*3/uL (0.0-0.87); Hematocrit 28.4 VOL% (42.0-52.0); Hemoglobin 9.1 GM/DL (14.0-18.0); Immature Granulocytes % 7.6 %; Immature Granulocytes Absolute 1.26 #; Lymphocytes # 2.5 10*3/uL (1.4-4.0); Mean Corpuscular Volume 92.2 FL (87-102); Mean Platelet Volume 8.7 FL (9.6-12.0); Monocytes % 6.5 % (1.7-12.7); Neutrophils % 63.2 % (38.7-73.9); Platelet Count 414 T/CUMM (130-400); Red Blood Count 3.08 MC/CUMM (3.8-5.5); Red Cell Distribution Width 14.9 % (9.3-17.3); White Blood Count 16.5 T/CUMM (4-12)
[2020-08-10] MEDS: BUDESONIDE 0.5 MG/2 ML NEB RESP TX SCH ×2 (06:53→19:28)
[2020-08-10] MEDS: ARFORMOTEROL 15 MCG/2 ML NEB RESP TX SCH ×2 (06:53→19:28)
[2020-08-10 06:54] LABS: Calcium 8.5 MG/DL (8.5-10.1); Osmolality,Calculated 266.1 MOS/KG (273-304)
[2020-08-10 07:02] LABS: Band Neutrophils 1 % (0-10); Eosinophils 8 % (0-10); Hypochromasia 1+; Lymphocytes 8 % (20-55); Microcytosis 1+; Ovalocytes Slight; Platelet Estimate Adequate; Segmented Neutrophils 77 % (50-85); Total Cells Counted 100
[2020-08-10] MEDS: predniSONE 5 MG TABLET PO SCH (10:10)
[2020-08-10] MEDS: THIAMINE 100 MG TABLET PO SCH (10:10)
[2020-08-10] MEDS: METOCLOPRAMIDE 10 MG/10 ML UDCUP PO SCH ×4 (10:10→21:04)
[2020-08-10] MEDS: POTASSIUM CHLORIDE 20 MEQ TABLET PO SCH ×2 (10:10→21:04)
[2020-08-10] MEDS: METOPROLOL TARTRATE 50 MG TABLET PER TUBE SCH ×2 (10:10→21:04)
[2020-08-10] MEDS: MULTIVITAMIN (CENTRUM) TABLET PO SCH (10:10)
[2020-08-10] MEDS: FOLIC ACID 1 MG TABLET PO SCH (10:10)
[2020-08-10] MEDS: POLYETHYLENE GLYCOL POWDER 17 GM PACK PO SCH (10:11)
[2020-08-10] MEDS: FUROSEMIDE 40 MG TABLET PO SCH (10:11)
[2020-08-10] MEDS: FAMOTIDINE 20 MG/2 ML VIAL IV SCH ×2 (10:11→21:04)
[2020-08-11] MEDS: CEFEPIME 1,000 MG in SODIUM CHLORIDE 0.9% 100 ML IV SCH ×4 (00:27→17:50)
[2020-08-11 04:49] LABS: Basophils # 0.1 10*3/uL (0.0-0.2); Basophils % 0.4 % (0.0-0.8); Eosinophils # 1.3 10*3/uL (0.0-0.87); Eosinophils % 7.9 % (0.00-10.9); Hematocrit 28.9 VOL% (42.0-52.0); Hemoglobin 9.1 GM/DL (14.0-18.0); Immature Granulocytes % 7.4 %; Immature Granulocytes Absolute 1.17 #; Lymphocytes % 12.6 % (21.2-54.2); Mean Corpuscular HGB Conc 31.5 GM/DL (32-36); Mean Corpuscular Volume 92.9 FL (87-102); Mean Platelet Volume 8.4 FL (9.6-12.0); Monocytes % 7.6 % (1.7-12.7); Neutrophils % 64.1 % (38.7-73.9); Platelet Count 447 T/CUMM (130-400); Red Blood Count 3.11 MC/CUMM (3.8-5.5); Red Cell Distribution Width 14.9 % (9.3-17.3); White Blood Count 15.9 T/CUMM (4-12)
[2020-08-11 05:13] LABS: Calcium 8.5 MG/DL (8.5-10.1); Osmolality,Calculated 265.2 MOS/KG (273-304)
[2020-08-11 05:14] LABS: Band Neutrophils 1 % (0-10); Eosinophils 8 % (0-10); Lymphocytes 15 % (20-55); Platelet Estimate Adequate; Segmented Neutrophils 73 % (50-85); Total Cells Counted 100
[2020-08-11 05:15] LABS: Hypochromasia 1+; Microcytosis 1+; Ovalocytes Slight
[2020-08-11] MEDS: ARFORMOTEROL 15 MCG/2 ML NEB RESP TX SCH ×2 (07:10→19:15)
[2020-08-11] MEDS: BUDESONIDE 0.5 MG/2 ML NEB RESP TX SCH ×2 (07:10→19:15)
[2020-08-11] MEDS: METOCLOPRAMIDE 10 MG/10 ML UDCUP PO SCH ×4 (08:38→20:52)
[2020-08-11] MEDS: FOLIC ACID 1 MG TABLET PO SCH (08:38)
[2020-08-11] MEDS: MULTIVITAMIN (CENTRUM) TABLET PO SCH (08:38)
[2020-08-11] MEDS: METOPROLOL TARTRATE 50 MG TABLET PER TUBE SCH ×2 (08:38→20:53)
[2020-08-11] MEDS: FAMOTIDINE 20 MG/2 ML VIAL IV SCH ×2 (08:38→20:53)
[2020-08-11] MEDS: THIAMINE 100 MG TABLET PO SCH (08:38)
[2020-08-11] MEDS: POTASSIUM CHLORIDE 20 MEQ TABLET PO SCH ×2 (08:38→20:52)
[2020-08-11] MEDS: predniSONE 5 MG TABLET PO SCH (08:38)
[2020-08-11] MEDS: FUROSEMIDE 40 MG TABLET PO SCH (08:41)
[2020-08-11] MEDS: POLYETHYLENE GLYCOL POWDER 17 GM PACK PO SCH (08:41)
[2020-08-12] MEDS: CEFEPIME 1,000 MG in SODIUM CHLORIDE 0.9% 100 ML IV SCH ×5 (01:53→23:56)
[2020-08-12 06:01] LABS: Basophils # 0.1 10*3/uL (0.0-0.2); Basophils % 0.7 % (0.0-0.8); Eosinophils # 1.6 10*3/uL (0.0-0.87); Eosinophils % 10.1 % (0.00-10.9); Hematocrit 30.6 VOL% (42.0-52.0); Hemoglobin 9.5 GM/DL (14.0-18.0); Immature Granulocytes % 6.2 %; Immature Granulocytes Absolute 0.99 #; Lymphocytes # 2.8 10*3/uL (1.4-4.0); Lymphocytes % 17.1 % (21.2-54.2); Mean Corpuscular Volume 93.9 FL (87-102); Mean Platelet Volume 8.7 FL (9.6-12.0); Neutrophils % 58.9 % (38.7-73.9); Platelet Count 526 T/CUMM (130-400); Red Blood Count 3.26 MC/CUMM (3.8-5.5); Red Cell Distribution Width 14.7 % (9.3-17.3); White Blood Count 16.1 T/CUMM (4-12)
[2020-08-12 06:16] LABS: Calcium 8.8 MG/DL (8.5-10.1); Osmolality,Calculated 268.2 MOS/KG (273-304)
[2020-08-12 06:34] LABS: Eosinophils 15 % (0-10); Hypochromasia 2+; Lymphocytes 16 % (20-55); Metamyelocytes 1 %; Microcytosis 1+; Myelocytes 3 %; Platelet Estimate Increased; Polychromasia Slight; Segmented Neutrophils 63 % (50-85); Total Cells Counted 100
[2020-08-12 06:35] LABS: Atypical Lymphocytes Few
[2020-08-12] MEDS: ARFORMOTEROL 15 MCG/2 ML NEB RESP TX SCH ×2 (07:15→20:05)
[2020-08-12] MEDS: BUDESONIDE 0.5 MG/2 ML NEB RESP TX SCH ×2 (07:15→20:05)
[2020-08-12] MEDS: FUROSEMIDE 40 MG TABLET PO SCH (08:39)
[2020-08-12] MEDS: METOPROLOL TARTRATE 50 MG TABLET PER TUBE SCH ×2 (08:39→21:01)
[2020-08-12] MEDS: predniSONE 5 MG TABLET PO SCH (08:39)
[2020-08-12] MEDS: THIAMINE 100 MG TABLET PO SCH (08:39)
[2020-08-12] MEDS: METOCLOPRAMIDE 10 MG/10 ML UDCUP PO SCH ×4 (08:39→21:01)
[2020-08-12] MEDS: MULTIVITAMIN (CENTRUM) TABLET PO SCH (08:40)
[2020-08-12] MEDS: POTASSIUM CHLORIDE 20 MEQ TABLET PO SCH ×2 (08:40→21:01)
[2020-08-12] MEDS: FOLIC ACID 1 MG TABLET PO SCH (08:40)
[2020-08-12] MEDS: FAMOTIDINE 20 MG/2 ML VIAL IV SCH ×2 (08:44→21:02)
[2020-08-12] MEDS: POLYETHYLENE GLYCOL POWDER 17 GM PACK PO SCH (09:33)
[2020-08-13 06:38] LABS: Basophils # 0.1 10*3/uL (0.0-0.2); Basophils % 0.5 % (0.0-0.8); Eosinophils # 1.3 10*3/uL (0.0-0.87); Hematocrit 29.5 VOL% (42.0-52.0); Hemoglobin 9.2 GM/DL (14.0-18.0); Immature Granulocytes % 5.8 %; Immature Granulocytes Absolute 0.97 #; Lymphocytes # 2.3 10*3/uL (1.4-4.0); Lymphocytes % 13.7 % (21.2-54.2); Mean Corpuscular HGB Conc 31.2 GM/DL (32-36); Mean Corpuscular Volume 92.2 FL (87-102); Mean Platelet Volume 8.5 FL (9.6-12.0); Monocytes % 7.4 % (1.7-12.7); Neutrophils % 64.6 % (38.7-73.9); Platelet Count 567 T/CUMM (130-400); Red Cell Distribution Width 14.9 % (9.3-17.3); White Blood Count 16.7 T/CUMM (4-12)
[2020-08-13 07:01] LABS: Eosinophils 9 % (0-10); Lymphocytes 14 % (20-55); Platelet Estimate Increased; Segmented Neutrophils 71 % (50-85); Total Cells Counted 100
[2020-08-13 07:02] LABS: Hypochromasia Slight
[2020-08-13] MEDS: CEFEPIME 1,000 MG in SODIUM CHLORIDE 0.9% 100 ML IV SCH ×2 (07:19→11:53)
[2020-08-13] MEDS: ARFORMOTEROL 15 MCG/2 ML NEB RESP TX SCH ×2 (07:56→19:35)
[2020-08-13] MEDS: BUDESONIDE 0.5 MG/2 ML NEB RESP TX SCH ×2 (07:56→19:35)
[2020-08-13] MEDS: predniSONE 5 MG TABLET PO SCH (09:41)
[2020-08-13] MEDS: MULTIVITAMIN (CENTRUM) TABLET PO SCH (09:41)
[2020-08-13] MEDS: THIAMINE 100 MG TABLET PO SCH (09:41)
[2020-08-13] MEDS: POTASSIUM CHLORIDE 20 MEQ TABLET PO SCH ×2 (09:41→22:13)
[2020-08-13] MEDS: FUROSEMIDE 40 MG TABLET PO SCH (09:41)
[2020-08-13] MEDS: METOPROLOL TARTRATE 50 MG TABLET PER TUBE SCH ×2 (09:41→22:13)
[2020-08-13] MEDS: POLYETHYLENE GLYCOL POWDER 17 GM PACK PO SCH (09:42)
[2020-08-13] MEDS: FOLIC ACID 1 MG TABLET PO SCH (09:42)
[2020-08-13] MEDS: FAMOTIDINE 20 MG/2 ML VIAL IV SCH ×2 (09:53→22:23)
[2020-08-13] MEDS: METOCLOPRAMIDE 10 MG/10 ML UDCUP PO SCH ×4 (09:56→22:13)
[2020-08-13] MEDS ORDERED: ENOXAPARIN 40 MG/0.4 ML SYRINGE SUBCUT ONE (14:00)
[2020-08-14 04:50] LABS: Basophils # 0.1 10*3/uL (0.0-0.2); Basophils % 0.7 % (0.0-0.8); Eosinophils # 1.7 10*3/uL (0.0-0.87); Eosinophils % 11.2 % (0.00-10.9); Immature Granulocytes % 5.5 %; Immature Granulocytes Absolute 0.85 #; Lymphocytes # 3.1 10*3/uL (1.4-4.0); Lymphocytes % 19.8 % (21.2-54.2); Mean Corpuscular HGB Conc 32.3 GM/DL (32-36); Mean Corpuscular Volume 90.4 FL (87-102); Mean Platelet Volume 8.4 FL (9.6-12.0); Monocytes % 9.1 % (1.7-12.7); Neutrophils % 53.7 % (38.7-73.9); Platelet Count 612 T/CUMM (130-400); Red Blood Count 3.43 MC/CUMM (3.8-5.5); Red Cell Distribution Width 14.6 % (9.3-17.3); White Blood Count 15.5 T/CUMM (4-12)
[2020-08-14 05:09] LABS: Calcium 8.8 MG/DL (8.5-10.1); Osmolality,Calculated 268.1 MOS/KG (273-304)
[2020-08-14 05:10] LABS: Eosinophils 7 % (0-10); Lymphocytes 24 % (20-55); Platelet Estimate Increased; Segmented Neutrophils 61 % (50-85); Total Cells Counted 100
[2020-08-14 05:11] LABS: Hypochromasia 1+; Microcytosis 1+
[2020-08-14] MEDS: BUDESONIDE 0.5 MG/2 ML NEB RESP TX SCH ×2 (07:30→19:10)
[2020-08-14] MEDS: ARFORMOTEROL 15 MCG/2 ML NEB RESP TX SCH ×2 (07:30→19:10)
[2020-08-14] MEDS: POTASSIUM CHLORIDE 20 MEQ TABLET PO SCH ×2 (09:16→20:38)
[2020-08-14] MEDS: FUROSEMIDE 40 MG TABLET PO SCH (09:16)
[2020-08-14] MEDS: FOLIC ACID 1 MG TABLET PO SCH (09:16)
[2020-08-14] MEDS: METOCLOPRAMIDE 10 MG/10 ML UDCUP PO SCH ×4 (09:16→20:38)
[2020-08-14] MEDS: MULTIVITAMIN (CENTRUM) TABLET PO SCH (09:16)
[2020-08-14] MEDS: ENOXAPARIN 40 MG/0.4 ML SYRINGE SUBCUT SCH (09:17)
[2020-08-14] MEDS: METOPROLOL TARTRATE 50 MG TABLET PER TUBE SCH ×2 (09:17→20:38)
[2020-08-14] MEDS: POLYETHYLENE GLYCOL POWDER 17 GM PACK PO SCH (09:18)
[2020-08-14] MEDS: FAMOTIDINE 20 MG/2 ML VIAL IV SCH ×2 (09:18→20:39)
[2020-08-14] MEDS: predniSONE 5 MG TABLET PO SCH (09:18)
[2020-08-14] MEDS: THIAMINE 100 MG TABLET PO SCH (09:19)
[2020-08-15 05:19] LABS: Basophils # 0.1 10*3/uL (0.0-0.2); Basophils % 0.9 % (0.0-0.8); Eosinophils # 1.5 10*3/uL (0.0-0.87); Eosinophils % 10.5 % (0.00-10.9); Hematocrit 30.4 VOL% (42.0-52.0); Hemoglobin 9.6 GM/DL (14.0-18.0); Immature Granulocytes % 5.1 %; Lymphocytes # 2.8 10*3/uL (1.4-4.0); Lymphocytes % 19.9 % (21.2-54.2); Mean Corpuscular HGB Conc 31.6 GM/DL (32-36); Mean Corpuscular Volume 90.7 FL (87-102); Mean Platelet Volume 8.6 FL (9.6-12.0); Neutrophils % 53.6 % (38.7-73.9); Platelet Count 669 T/CUMM (130-400); Red Blood Count 3.35 MC/CUMM (3.8-5.5); Red Cell Distribution Width 14.5 % (9.3-17.3); White Blood Count 13.9 T/CUMM (4-12)
[2020-08-15 05:35] LABS: Calcium 8.6 MG/DL (8.5-10.1); Osmolality,Calculated 268.1 MOS/KG (273-304)
[2020-08-15 05:40] LABS: Eosinophils 8 % (0-10); Hypochromasia 1+; Lymphocytes 19 % (20-55); Platelet Estimate Increased; Segmented Neutrophils 64 % (50-85); Total Cells Counted 100
[2020-08-15 05:41] LABS: Microcytosis 1+
[2020-08-15] MEDS: METOCLOPRAMIDE 10 MG/10 ML UDCUP PO SCH ×4 (07:04→21:05)
[2020-08-15] MEDS: BUDESONIDE 0.5 MG/2 ML NEB RESP TX SCH ×2 (07:30→19:43)
[2020-08-15] MEDS: ARFORMOTEROL 15 MCG/2 ML NEB RESP TX SCH ×2 (07:30→19:43)
[2020-08-15] MEDS: POTASSIUM CHLORIDE 20 MEQ TABLET PO SCH ×2 (10:08→21:05)
[2020-08-15] MEDS: FOLIC ACID 1 MG TABLET PO SCH (10:08)
[2020-08-15] MEDS: MULTIVITAMIN (CENTRUM) TABLET PO SCH (10:08)
[2020-08-15] MEDS: FUROSEMIDE 40 MG TABLET PO SCH (10:08)
[2020-08-15] MEDS: predniSONE 5 MG TABLET PO SCH (10:09)
[2020-08-15] MEDS: ENOXAPARIN 40 MG/0.4 ML SYRINGE SUBCUT SCH (10:09)
[2020-08-15] MEDS: FAMOTIDINE 20 MG/2 ML VIAL IV SCH ×2 (10:09→21:05)
[2020-08-15] MEDS: POLYETHYLENE GLYCOL POWDER 17 GM PACK PO SCH (10:09)
[2020-08-15] MEDS: METOPROLOL TARTRATE 50 MG TABLET PER TUBE SCH ×2 (10:09→21:05)
[2020-08-15] MEDS: THIAMINE 100 MG TABLET PO SCH (10:10)
[2020-08-16 06:54] LABS: Basophils # 0.1 10*3/uL (0.0-0.2); Basophils % 0.5 % (0.0-0.8); Eosinophils # 1.2 10*3/uL (0.0-0.87); Eosinophils % 9.3 % (0.00-10.9); Hematocrit 30.5 VOL% (42.0-52.0); Hemoglobin 9.7 GM/DL (14.0-18.0); Immature Granulocytes % 4.5 %; Immature Granulocytes Absolute 0.59 #; Lymphocytes # 2.8 10*3/uL (1.4-4.0); Lymphocytes % 21.1 % (21.2-54.2); Mean Corpuscular HGB Conc 31.8 GM/DL (32-36); Mean Corpuscular Volume 89.7 FL (87-102); Mean Platelet Volume 8.4 FL (9.6-12.0); Monocytes % 9.3 % (1.7-12.7); Neutrophils % 55.3 % (38.7-73.9); Platelet Count 698 T/CUMM (130-400); Red Cell Distribution Width 14.5 % (9.3-17.3); White Blood Count 13.1 T/CUMM (4-12)
[2020-08-16 07:13] LABS: Calcium 8.8 MG/DL (8.5-10.1); Osmolality,Calculated 263.4 MOS/KG (273-304)
[2020-08-16] MEDS: ARFORMOTEROL 15 MCG/2 ML NEB RESP TX SCH ×2 (07:15→19:23)
[2020-08-16] MEDS: BUDESONIDE 0.5 MG/2 ML NEB RESP TX SCH ×2 (07:15→19:23)
[2020-08-16 07:16] LABS: Anisocytosis 2+; Band Neutrophils 4 % (0-10); Eosinophils 10 % (0-10); Lymphocytes 27 % (20-55); Metamyelocytes 1 %; Myelocytes 2 %; Platelet Estimate Increased; Polychromasia Slight; Segmented Neutrophils 49 % (50-85); Total Cells Counted 100
[2020-08-16] MEDS: FOLIC ACID 1 MG TABLET PO SCH (08:58)
[2020-08-16] MEDS: ENOXAPARIN 40 MG/0.4 ML SYRINGE SUBCUT SCH (08:58)
[2020-08-16] MEDS: METOPROLOL TARTRATE 50 MG TABLET PER TUBE SCH ×2 (08:58→21:42)
[2020-08-16] MEDS: FUROSEMIDE 40 MG TABLET PO SCH (08:58)
[2020-08-16] MEDS: predniSONE 5 MG TABLET PO SCH (08:58)
[2020-08-16] MEDS: MULTIVITAMIN (CENTRUM) TABLET PO SCH (08:58)
[2020-08-16] MEDS: POTASSIUM CHLORIDE 20 MEQ TABLET PO SCH ×2 (08:58→21:44)
[2020-08-16] MEDS: POLYETHYLENE GLYCOL POWDER 17 GM PACK PO SCH (08:59)
[2020-08-16] MEDS: METOCLOPRAMIDE 10 MG/10 ML UDCUP PO SCH ×4 (08:59→21:41)
[2020-08-16] MEDS: THIAMINE 100 MG TABLET PO SCH (08:59)
[2020-08-16] MEDS: FAMOTIDINE 20 MG/2 ML VIAL IV SCH ×2 (09:00→21:40)
[2020-08-16] MEDS ORDERED: hydrALAZINE 20 MG/1 ML VIAL IV PRN (15:02)
[2020-08-17] MEDS: BUDESONIDE 0.5 MG/2 ML NEB RESP TX SCH ×2 (07:44→19:55)
[2020-08-17] MEDS: ARFORMOTEROL 15 MCG/2 ML NEB RESP TX SCH ×2 (07:44→19:55)
[2020-08-17] MEDS: ENOXAPARIN 40 MG/0.4 ML SYRINGE SUBCUT SCH (08:41)
[2020-08-17] MEDS: METOCLOPRAMIDE 10 MG/10 ML UDCUP PO SCH ×4 (08:41→20:52)
[2020-08-17] MEDS: MULTIVITAMIN (CENTRUM) TABLET PO SCH (08:42)
[2020-08-17] MEDS: METOPROLOL TARTRATE 50 MG TABLET PER TUBE SCH ×2 (08:42→20:54)
[2020-08-17] MEDS: FUROSEMIDE 40 MG TABLET PO SCH (08:42)
[2020-08-17] MEDS: THIAMINE 100 MG TABLET PO SCH (08:42)
[2020-08-17] MEDS: predniSONE 5 MG TABLET PO SCH (08:42)
[2020-08-17] MEDS: POTASSIUM CHLORIDE 20 MEQ TABLET PO SCH ×2 (08:42→20:51)
[2020-08-17] MEDS: FOLIC ACID 1 MG TABLET PO SCH (08:42)
[2020-08-17] MEDS: POLYETHYLENE GLYCOL POWDER 17 GM PACK PO SCH (08:46)
[2020-08-17] MEDS: FAMOTIDINE 20 MG/2 ML VIAL IV SCH ×2 (08:46→20:55)
[2020-08-18 05:53] LABS: Basophils # 0.1 10*3/uL (0.0-0.2); Basophils % 0.8 % (0.0-0.8); Eosinophils # 0.9 10*3/uL (0.0-0.87); Eosinophils % 6.6 % (0.00-10.9); Hematocrit 31.2 VOL% (42.0-52.0); Hemoglobin 9.7 GM/DL (14.0-18.0); Immature Granulocytes Absolute 0.56 #; Lymphocytes % 21.3 % (21.2-54.2); Mean Corpuscular HGB Conc 31.1 GM/DL (32-36); Mean Corpuscular Volume 91.2 FL (87-102); Mean Platelet Volume 8.8 FL (9.6-12.0); Monocytes % 9.8 % (1.7-12.7); Neutrophils % 57.5 % (38.7-73.9); Platelet Count 689 T/CUMM (130-400); Red Blood Count 3.42 MC/CUMM (3.8-5.5); Red Cell Distribution Width 14.5 % (9.3-17.3); White Blood Count 14.2 T/CUMM (4-12)
[2020-08-18 06:08] LABS: Calcium 8.8 MG/DL (8.5-10.1); Osmolality,Calculated 269.1 MOS/KG (273-304)
[2020-08-18 07:32] LABS: Eosinophils 2 % (0-10); Hypochromasia 1+; Lymphocytes 14 % (20-55); Metamyelocytes 1 %; Platelet Estimate Increased; Polychromasia Slight; Segmented Neutrophils 70 % (50-85); Total Cells Counted 100
[2020-08-18] MEDS: ARFORMOTEROL 15 MCG/2 ML NEB RESP TX SCH ×2 (08:04→19:45)
[2020-08-18] MEDS: BUDESONIDE 0.5 MG/2 ML NEB RESP TX SCH ×2 (08:04→19:45)
[2020-08-18] MEDS: FUROSEMIDE 40 MG TABLET PO SCH (09:23)
[2020-08-18] MEDS: METOCLOPRAMIDE 10 MG/10 ML UDCUP PO SCH ×4 (09:23→20:53)
[2020-08-18] MEDS: METOPROLOL TARTRATE 50 MG TABLET PER TUBE SCH ×2 (09:23→20:53)
[2020-08-18] MEDS: MULTIVITAMIN (CENTRUM) TABLET PO SCH (09:23)
[2020-08-18] MEDS: THIAMINE 100 MG TABLET PO SCH (09:24)
[2020-08-18] MEDS: FOLIC ACID 1 MG TABLET PO SCH (09:24)
[2020-08-18] MEDS: predniSONE 5 MG TABLET PO SCH (09:24)
[2020-08-18] MEDS: POTASSIUM CHLORIDE 20 MEQ TABLET PO SCH ×2 (09:26→20:53)
[2020-08-18] MEDS: POLYETHYLENE GLYCOL POWDER 17 GM PACK PO SCH (09:26)
[2020-08-18] MEDS: FAMOTIDINE 20 MG/2 ML VIAL IV SCH ×2 (09:27→21:03)
[2020-08-18] MEDS: ENOXAPARIN 40 MG/0.4 ML SYRINGE SUBCUT SCH (12:07)
[2020-08-18] MEDS: ACETAMINOPHEN 325 MG TABLET PO PRN (20:53)
[2020-08-19] MEDS: ARFORMOTEROL 15 MCG/2 ML NEB RESP TX SCH ×2 (07:39→20:00)
[2020-08-19] MEDS: BUDESONIDE 0.5 MG/2 ML NEB RESP TX SCH ×2 (07:39→20:00)
[2020-08-19] MEDS: POTASSIUM CHLORIDE 20 MEQ TABLET PO SCH ×2 (10:17→21:15)
[2020-08-19] MEDS: ENOXAPARIN 40 MG/0.4 ML SYRINGE SUBCUT SCH (10:17)
[2020-08-19] MEDS: METOCLOPRAMIDE 10 MG/10 ML UDCUP PO SCH ×4 (10:17→21:15)
[2020-08-19] MEDS: THIAMINE 100 MG TABLET PO SCH (10:17)
[2020-08-19] MEDS: MULTIVITAMIN (CENTRUM) TABLET PO SCH (10:17)
[2020-08-19] MEDS: POLYETHYLENE GLYCOL POWDER 17 GM PACK PO SCH (10:18)
[2020-08-19] MEDS: predniSONE 5 MG TABLET PO SCH (10:18)
[2020-08-19] MEDS: METOPROLOL TARTRATE 50 MG TABLET PER TUBE SCH (10:18)
[2020-08-19] MEDS: FUROSEMIDE 40 MG TABLET PO SCH (10:18)
[2020-08-19] MEDS: FOLIC ACID 1 MG TABLET PO SCH (10:18)
[2020-08-19] MEDS: FAMOTIDINE 20 MG/2 ML VIAL IV SCH ×2 (10:19→21:17)
[2020-08-19] MEDS: METOPROLOL TARTRATE 25 MG TABLET PER TUBE SCH (21:15)
[2020-08-20] MEDS: BUDESONIDE 0.5 MG/2 ML NEB RESP TX SCH (07:09)
[2020-08-20] MEDS: ARFORMOTEROL 15 MCG/2 ML NEB RESP TX SCH (07:09)
[2020-08-20 07:17] VITALS: BP 135/77
[2020-08-20 07:53] LABS: Basophils # 0.1 10*3/uL (0.0-0.2); Basophils % 0.5 % (0.0-0.8); Eosinophils # 0.6 10*3/uL (0.0-0.87); Eosinophils % 3.9 % (0.00-10.9); Hematocrit 31.6 VOL% (42.0-52.0); Hemoglobin 9.9 GM/DL (14.0-18.0); Immature Granulocytes % 2.9 %; Immature Granulocytes Absolute 0.44 #; Lymphocytes # 2.5 10*3/uL (1.4-4.0); Lymphocytes % 16.3 % (21.2-54.2); Mean Corpuscular HGB Conc 31.3 GM/DL (32-36); Mean Corpuscular Volume 90.3 FL (87-102); Mean Platelet Volume 8.7 FL (9.6-12.0); Monocytes % 9.3 % (1.7-12.7); Neutrophils % 67.1 % (38.7-73.9); Platelet Count 666 T/CUMM (130-400); Red Cell Distribution Width 14.5 % (9.3-17.3); White Blood Count 15.2 T/CUMM (4-12)
[2020-08-20 08:24] LABS: Calcium 8.9 MG/DL (8.5-10.1); Osmolality,Calculated 266.1 MOS/KG (273-304)
[2020-08-20] MEDS: METOCLOPRAMIDE 10 MG/10 ML UDCUP PO SCH ×2 (10:05→11:17)
[2020-08-20] MEDS: METOPROLOL TARTRATE 25 MG TABLET PER TUBE SCH (10:05)
[2020-08-20] MEDS: THIAMINE 100 MG TABLET PO SCH (10:06)
[2020-08-20] MEDS: predniSONE 5 MG TABLET PO SCH (10:06)
[2020-08-20] MEDS: MULTIVITAMIN (CENTRUM) TABLET PO SCH (10:06)
[2020-08-20] MEDS: FOLIC ACID 1 MG TABLET PO SCH (10:06)
[2020-08-20] MEDS: POLYETHYLENE GLYCOL POWDER 17 GM PACK PO SCH (10:07)
[2020-08-20] MEDS: FAMOTIDINE 20 MG/2 ML VIAL IV SCH (10:07)
[2020-08-20] MEDS: FUROSEMIDE 40 MG TABLET PO SCH (10:07)
[2020-08-20] MEDS: ENOXAPARIN 40 MG/0.4 ML SYRINGE SUBCUT SCH (10:07)
[2020-08-20] MEDS: POTASSIUM CHLORIDE 20 MEQ TABLET PO SCH (10:07)
== END 2020-08-20 11:25 | disposition home health service (06) | DRG 163 ==
LOC: EDBD → EDUNIT# → EDSEX → N.ED 00:46 → N.EDINP 02:59 → SUATTDRO 02:59 → N.ICU 04:31 → N.TELEN 06-19 14:44 → N.ICU 07-05 21:49 → N.5E 07-15 13:30 → N.ICU 08-05 13:53 → N.3E 08-06 13:53
PROVIDERS: ADMIT Internal Medicine; ATTEND Internal Medicine